=== PATIENT | female | born 1975 | race Caucasian/White ===

== ENCOUNTER → 2017-12-09 06:59 | Outpatient (CLI) | payer OTHER, SELFPAY ==
--- NOTE | 2017-12-09 07:06 | BI_ITS ---
MAMMOGRAPHY - BILATERAL SCREENING REASON FOR EXAM: Female, 42 years old. Routine annual screening examination. PERTINENT HISTORY: Non-contributory. TECHNIQUE: Digital bilateral breast suzie (3D mammographic acquisition) in the CC and MLO projections. 2-D mediolateral oblique (MLO) and craniocaudad (CC) views of both breasts were obtained. CAD: Full Field Digital Mammography with Computer Added Detection was performed. COMPARISON: Comparison is made with prior examination of November 18, 2016. FINDINGS: Breast Composition: The breasts are extremely dense, which lowers the sensitivity of mammography. There are no dominant masses or suspicious calcifications. There is a 5.7 mm x 4.2 mm well-defined nodular density in the medial retroareolar region of the left breast. Correlation with ultrasound is recommended. No other significant abnormalities are identified. There has been no significant change since the prior study. BI/SCREENING MAMM (CAD), BILAT IMPRESSION: Subcentimeter nodule in the left breast as described. Correlation with ultrasound is recommended. ASSESSMENT CATEGORY: BIRADS Category 0: Incomplete. Need additional imaging evaluation. A letter regarding these results will be sent to the patient by the facility within 30 days. Approximately 10% of breast cancers are not detected by mammography. A normal mammogram should not delay biopsy of a clinically suspicious abnormality. [id number] Electronically Signed: Loi Reyes MD at 8:52 EDT Tel [phone], Service support ,
== END ==
PROVIDERS: Family Provider Family Medicine; PCP Family Medicine; Visit Provider Obstetrics & Gynecology
DX: Z12.31 Encounter for screening mammogram for malignant neoplasm of breast (principal); N63.20 Unspecified lump in the left breast, unspecified quadrant
CPT/HCPCS: 77063; 77067

== ENCOUNTER → 2017-12-10 10:28 | Outpatient (CLI) | payer OTHER, SELFPAY ==
--- NOTE | 2017-12-10 10:45 | US_ITS ---
STUDY: ULTRASOUND BREAST - LEFT REASON FOR EXAM: Female, 42 years old. Abnormal screening mammogram. TECHNIQUE: Axial and longitudinal images of the LEFT breast were performed with a high resolution ultrasound transducer. COMPARISON: Comparison is made with prior mammogram dated December 09, 2017. FINDINGS: LEFT Breast: There is an 8 mm x 7 mm x 3 mm cyst in the medial retroareolar region of the breast. This corresponds to the mammographic findings. Smaller cysts are also seen within the breast. US/Breast Limited Unilateral IMPRESSION: The mammographic findings corresponds to an 8 mm x 7 mm x 3 mm cyst. Routine mammographic follow-up is recommended. ASSESSMENT CATEGORY: BIRADS Category 2: Benign. A letter regarding these results will be sent to the patient by the facility within 30 days. Electronically Signed: Loi Reyes MD at 12:44 EDT Tel [phone], Service support ,
== END ==
PROVIDERS: Family Provider Family Medicine; PCP Family Medicine; Visit Provider Obstetrics & Gynecology
DX: R92.8 Other abnormal and inconclusive findings on diagnostic imaging of breast (principal)
CPT/HCPCS: 76642

== ENCOUNTER → 2018-03-04 13:10 | Outpatient (CLI) | payer OTHER, SELFPAY ==
--- NOTE | 2018-03-04 13:12 | US_ITS ---
STUDY: ULTRASOUND OF THE FEMALE PELVIS - COMPLETE REASON FOR EXAM: Female, 42 years old. History of ovarian cyst. LMP: February 21, 2018. TECHNIQUE: Transabdominal and Transvaginal TECHNICAL QUALITY: Adequate. COMPARISON: Comparison is made with prior study dated February 14, 2014. FINDINGS: The uterus is anteverted and is in a midline position. The uterus measures 9.2 cm x 4.6 cm x 6.3 cm. Normal uterine cervix. The endometrium measures 6.8 mm in thickness, and is hyperechoic. There is no demonstrated endometrial mass. There is no demonstrated myometrial mass. I.U.D. - The patient does not have an I.U.D. The right ovary is visualized. The right ovary measures 3.2 cm x 1.7 cm x 1.5 cm. There is no right ovarian cyst or ovarian mass. There is no visualized right adnexal mass or complex lesion. There is normal arterial and normal venous vascularity. The left ovary is visualized. The left ovary measures 3.1 cm x 2.3 cm x 2.4 cm. There is a 2.2 cm x 1.8 cm x 1.9 cm cyst. There is no visualized left adnexal mass or complex lesion. There is normal arterial and normal venous vascularity. There is no fluid in the cul-de-sac. The pre void volume of the bladder was 610 ml. Polycystic ovary disease: No. US/Pelvic (Non ) IMPRESSION: 2.2 cm x 1.8 cm x 1.9 cm left ovarian cyst. Electronically Signed: Loi Reyes MD at 14:14 EDT Tel [phone], Service support ,
--- NOTE | 2018-03-04 13:25 | US_ITS ---
STUDY: ULTRASOUND OF THE FEMALE PELVIS - COMPLETE REASON FOR EXAM: Female, 42 years old. History of ovarian cyst. LMP: February 21, 2018. TECHNIQUE: Transabdominal and Transvaginal TECHNICAL QUALITY: Adequate. COMPARISON: Comparison is made with prior study dated February 14, 2014. FINDINGS: The uterus is anteverted and is in a midline position. The uterus measures 9.2 cm x 4.6 cm x 6.3 cm. Normal uterine cervix. The endometrium measures 6.8 mm in thickness, and is hyperechoic. There is no demonstrated endometrial mass. There is no demonstrated myometrial mass. I.U.D. - The patient does not have an I.U.D. The right ovary is visualized. The right ovary measures 3.2 cm x 1.7 cm x 1.5 cm. There is no right ovarian cyst or ovarian mass. There is no visualized right adnexal mass or complex lesion. There is normal arterial and normal venous vascularity. The left ovary is visualized. The left ovary measures 3.1 cm x 2.3 cm x 2.4 cm. There is a 2.2 cm x 1.8 cm x 1.9 cm cyst. There is no visualized left adnexal mass or complex lesion. There is normal arterial and normal venous vascularity. There is no fluid in the cul-de-sac. The pre void volume of the bladder was 610 ml. Polycystic ovary disease: No. US/Transvaginal Non- IMPRESSION: 2.2 cm x 1.8 cm x 1.9 cm left ovarian cyst. Electronically Signed: Loi Reyes MD at 14:14 EDT Tel [phone], Service support ,
== END ==
PROVIDERS: Family Provider Family Medicine; PCP Family Medicine; Visit Provider Family Medicine
DX: N83.202 Unspecified ovarian cyst, left side (principal)
CPT/HCPCS: 76830; 76856; 93976

== ENCOUNTER → 2018-03-08 07:11 | Outpatient (CLI) | payer OTHER, SELFPAY ==
[2018-03-08 10:42] LABS: AST(SGOT) 20 U/L (15-37); Alanine Aminotransfer ALT/SGPT 20 U/L (13-56); Albumin, Serum 3.4 g/dL (3.2-5.0); Alkaline Phosphatase 58 U/L (45-117); Anion Gap 8 (5-15); BUN 15 mg/dL (7-18); BUN/Creat Ratio 18.9 RATIO (10-20); Calcium,Total 8.3 mg/dL (8.5-10.1); Chloride 104 mmol/L (98-107); EST Glomerular Filtration Rate 84 mL/min (>60); Est Glom Filt Rate - Afr Amer 101 mL/min (>60); Globulin 3.5 g/dL (2.2-4.2); Glucose 71 mg/dL (74-106); Potassium 3.9 mmol/L (3.5-5.1); Protein, Total 6.9 g/dL (6.4-8.2); Sodium Level 140 mmol/L (136-145)
== END ==
PROVIDERS: Family Provider Family Medicine; PCP Family Medicine; Visit Provider Family Medicine
DX: R10.31 Right lower quadrant pain (principal)
CPT/HCPCS: 36415; 80053

== ENCOUNTER → 2018-09-07 15:39 | Outpatient (CLI) | payer OTHER, SELFPAY | PROVIDERS: Family Provider Family Medicine; PCP Family Medicine; Referring Provider Otolaryngology Otolaryngology/Facial Plastic Surgery; Visit Provider Otolaryngology Otolaryngology/Facial Plastic Surgery | DX: J02.9 Acute pharyngitis, unspecified (principal) | CPT/HCPCS: 87070; 87077; 87186 ==

== ENCOUNTER 2018-12-23 18:04 | Emergency (ER) | payer OTHER, SELFPAY ==
[2018-12-14 08:40] VITALS: BMI 20.4
[2018-12-23 18:04] VITALS: BP 147/80; PULSE 56; RESP 14; TEMP 37.1; O2SAT 99; BMI 21.5
--- NOTE | 2018-12-23 19:01 | ED.VIS.GEN ---
History of Present Illness Chief Complaint: Headache Informant: Patient Onset: Today - about 4-5 hrs Context: Gradual Onset - relatively quick, similar to other migraines Timing: Continuous Quality: throbbing Location: right frontal/retroorbital Current Severity: Severe - not the worst ever Maximum Severity: Severe Worsened by: light Relieved by: not by her Zomig Associated Symptoms: n/v, photophobia. no diplopia or peripheral neuro sx. Narrative: Had poison [place] recently and was on prednisone, which has caused her to have some irregular sleep, which is a common trigger for her migraines which started today. She took half of his Zomig, she later took the other half but soon vomited after that. Looking for relief. No recent head injury. Not confused or having any neck stiffness or fever. Prior similar symptoms: Yes - typical of her usual migraines - Past Medical History (1) Migraines Status: Chronic Past Medical History - Allergies and Home Meds Allergies/Adverse Reactions: Allergies No Known Allergies Allergy (Verified 12/23/18 18:08) Primary Care Physician: Tony Ely MD [Primary Care Provider] - As Needed Lives: Spouse/ Significant Other Smoking Status: Never smoker Drugs: None Review of Systems General: Denies: Chills, Fever Eyes: Denies: Visual changes - bilaterally, Diplopia Gastrointestinal: Reports: Nausea, Vomiting. Denies: Abdominal pain Musculoskeletal: Denies: Neck pain, Back pain Skin: Denies: Rash, Wounds Neurological: Reports: Headache. Denies: Weakness, Numbness Physical Exam Vital Signs/Narrative: Vital Signs Temp Pulse Resp BP Pulse Ox 12/23/18 18:04 98.7 F 56 L 14 147/80 H 99 Inital Vital Signs reviewed: Yes General: Well nourished, Well developed, No Acute Distress Head: Normocephalic, Atraumatic Eyes: Perrl, EOMI, - - photophobic ENT: Moist mucous membranes, No rhinorrhea Neck: Supple, Nontender, No lymphadenopathy Skin: Normal color, No rash Neurological: Alert, Oriented x3, Cranial nerves II-XII grossly intact, Normal Strength, Normal Sensation Psychological: Normal affect, Normal Mood Diagnostic/Tx/Re-eval - Medical Decision Making Patient was treated with Reglan, Toradol, Benadryl along with some IV fluids. On reevaluation her headache is completely gone she feels much better. Consistent with a migraine. Given appropriate discharge instructions. She has a ride home. ED Disposition - Plan for ED Patient: Disposition: Home or Assisted Living Diagnosis: Migraine headache Instructions: ED Headache Migraine Referrals: Tony Ely MD [Primary Care Provider] - As Needed
[2018-12-23] MEDS: Metoclopramide 10 MG/2 ML Vial IV (19:10)
[2018-12-23] MEDS: Ketorolac 30 MG/ML Syringe IV (19:10)
[2018-12-23] MEDS: DiphenhydrAMINE 50 MG/ML Syringe 25 MG IV (19:10)
[2018-12-23] MEDS: 0.9% Normal Saline 1,000 ML 999 ML IV (19:10)
== END 2018-12-23 20:45 | disposition home or self-care (01) ==
PROVIDERS: Emergency Provider Emergency Medicine; Family Provider Family Medicine; PCP Family Medicine
DX: G43.909 Migraine, unspecified, not intractable, without status migrainosus (principal)
CPT/HCPCS: 96361; 96374; 96375; 99283; J7030; A4216

== ENCOUNTER → 2019-06-06 14:30 | Outpatient (CLI) | payer OTHER, SELFPAY ==
--- NOTE | 2019-06-06 14:32 | BI_ITS ---
BILATERAL DIGITAL MAMMOGRAM WITH TOMOSYNTHESIS: Mediolateraloblique and craniocaudal views demonstrate no evidence of dominant parenchymal masses. No cluster of microcalcifications or architectural distortion is seen. No evidence of skin thickening is identified There has been no significant change since 12/09/2017. Breast Density: The breast tissue is heterogeneously dense, which may obscure small masses. CAD was used to assist in final assessment. IMPRESSION: NORMAL MAMMOGRAM BILATERALLY. FINAL ASSESSMENT: BIRAD 1 (NEGATIVE) YEARLY MAMMOGRAM RECOMMENDED Approximately 10% of breast cancers are not detected by mammography. A normal mammogram should not delay biopsy of a clinically suspicious abnormality. Electronically Signed: Stuart Mata, at 20:40 EDT Tel , Service support , BI/SCREEN MAMM (CAD) W/ADELINA CAVAZOS
== END ==
PROVIDERS: Family Provider Family Medicine; PCP Family Medicine; Referring Provider Obstetrics & Gynecology; Visit Provider Obstetrics & Gynecology
DX: Z12.31 Encounter for screening mammogram for malignant neoplasm of breast (principal)
CPT/HCPCS: 77063; 77067

== ENCOUNTER → 2019-07-18 09:20 | Outpatient (CLI) | payer OTHER, SELFPAY ==
[2019-07-17 15:54] VITALS: BMI 21.5
--- NOTE | 2019-07-18 09:23 | US_ITS ---
STUDY: ULTRASOUND BREAST - LEFT REASON FOR EXAM: Female, 44 years old. Left axillary adenopathy. TECHNIQUE: Axial and longitudinal images of the LEFT breast were performed with a high resolution ultrasound transducer. # OF IMAGES: 29 COMPARISON: Comparison is made with prior sonogram of the left breast dated December 10, 2017. FINDINGS: LEFT Breast: There is a 1.6 cm x 1.1 cm x 0.4 cm hypoechoic well-defined nodule with a central hilum and increased vascularity in keeping with a lymph node. Adjacent to this, there is a 0.9 cm x 0.6 cm x 0.6 cm similar appearing nodular density. This is in keeping with a lymph node as well. US/Breast Limited Unilateral IMPRESSION: Findings in keeping with 2 benign-appearing left axillary lymph nodes. ASSESSMENT CATEGORY: BIRADS Category 2: Benign. A letter regarding these results will be sent to the patient by the facility within 30 days. Electronically Signed: Loi Reyes, at 8:32 EST , Service support ,
== END ==
PROVIDERS: Family Provider Family Medicine; PCP Family Medicine; Referring Provider Surgery; Visit Provider Surgery
DX: R59.1 Generalized enlarged lymph nodes (principal)
CPT/HCPCS: 76642

== ENCOUNTER → 2020-06-06 15:28 | Outpatient (CLI) | payer OTHER, SELFPAY ==
[2019-07-17 15:54] VITALS: BMI 21.5
--- NOTE | 2020-06-06 15:33 | US_ITS ---
STUDY: ULTRASOUND OF THE FEMALE PELVIS - COMPLETE REASON FOR EXAM: Female, 45 years old. RLQ PAIN LMP: 05/30/2020 TECHNIQUE: Transabdominal TECHNICAL QUALITY: Adequate. COMPARISON: 03/04/2018 FINDINGS: The uterus is anteverted and is in a midline position. The uterus measures 9.1 x 5.9 x 3.7 cm. Normal uterine cervix. The endometrium measures 5 mm in thickness, and is hyperechoic. There is no demonstrated endometrial mass. 2 cm hyperechoic fibroid in the anterior aspect of the lower uterine segment. I.U.D. - The patient does not have an I.U.D. The right ovary is visualized. The right ovary measures 4.1 x 2.7 x 1.7 cm. There is no right ovarian cyst or ovarian mass. There is no visualized right adnexal mass or complex lesion. There is normal arterial and normal venous vascularity. The left ovary is visualized. The left ovary measures 2.7 x 2.3 x 1.4 cm. There is no left ovarian cyst or ovarian mass. There is no visualized left adnexal mass or complex lesion. There is normal arterial and normal venous vascularity. There is no fluid in the cul-de-sac. The pre void volume of the bladder was ml. The post void volume of the bladder was ml. Polycystic ovary disease: No. US/Pelvic (Non ) IMPRESSION: 2 cm intramural fibroid in the anterior lower uterine segment. Electronically Signed: Tyrone Jackman MD at 16:58 EDT Tel , Service support ,
== END ==
PROVIDERS: PCP Family Medicine; Referring Provider Family Medicine; Visit Provider Family Medicine
DX: R10.32 Left lower quadrant pain (principal)
CPT/HCPCS: 76856; 93976

== ENCOUNTER → 2020-06-24 11:21 | Outpatient (CLI) | payer OTHER, SELFPAY ==
[2019-07-17 15:54] VITALS: BMI 21.5
[2020-06-28 15:26] LABS: HPV APTIMA, High Risk Negative (Negative)
[2020-06-28 15:27] LABS: HPV Reflexed? YES, CHARGE PATIENT
== END ==
PROVIDERS: PCP Family Medicine; Visit Provider Student in an Organized Health Care Education/Training Program
DX: Z12.4 Encounter for screening for malignant neoplasm of cervix (principal)
CPT/HCPCS: 87624; 88175; G0145

== ENCOUNTER → 2020-07-09 10:26 | Outpatient (CLI) | payer OTHER, SELFPAY ==
[2019-07-17 15:54] VITALS: BMI 21.5
== END ==
PROVIDERS: PCP Family Medicine; Referring Provider Family Medicine; Visit Provider Family Medicine
DX: U07.1 COVID-19 (principal)
CPT/HCPCS: 87635; C9803; U0003

== ENCOUNTER → 2020-10-08 07:11 | Outpatient (CLI) | payer OTHER, SELFPAY ==
[2019-07-17 15:54] VITALS: BMI 21.5
[2020-08-29 11:57] VITALS: BMI 22.2
--- NOTE | 2020-10-08 07:13 | BI_ITS ---
MAMMOGRAPHY - BILATERAL SCREENING REASON FOR EXAM: Female, 45 years old. Routine annual screening examination. PERTINENT HISTORY: Non-contributory. TECHNIQUE: Digital bilateral breast adelina (3D mammographic acquisition) in the CC and MLO projections. 2-D mediolateral oblique (MLO) and craniocaudad (CC) views of both breasts were obtained. CAD: Full Field Digital Mammography with Computer Added Detection was performed. COMPARISON: Comparison is made with prior study dated 06/06/2019 and 12/09/2017. FINDINGS: Breast Composition: The breasts are extremely dense, which lowers the sensitivity of mammography. There are no dominant masses or suspicious calcifications. No other significant abnormalities are identified. There has been no significant change since the prior study. BI/SCRN MAMM (CAD)W/ADELINA BILAT IMPRESSION: Stable bilateral screening mammogram. Yearly follow-up mammogram recommended. (A) ASSESSMENT CATEGORY: BIRADS Category 1: Negative. A letter regarding these results will be sent to the patient by the facility within 30 days. Approximately 10% of breast cancers are not detected by mammography. A normal mammogram should not delay biopsy of a clinically suspicious abnormality. [id number] Electronically Signed: Loi Reyes MD at 8:45 EST , Service support ,
== END ==
PROVIDERS: PCP Family Medicine; Referring Provider Student in an Organized Health Care Education/Training Program; Visit Provider Student in an Organized Health Care Education/Training Program
DX: Z12.31 Encounter for screening mammogram for malignant neoplasm of breast (principal)
CPT/HCPCS: 77063; 77067

== ENCOUNTER → 2020-11-11 14:40 | Outpatient (CLI) | payer OTHER, SELFPAY ==
[2020-08-29 11:57] VITALS: BMI 22.2
--- NOTE | 2020-11-11 14:46 | RAD_ITS ---
STUDY: X-RAY - LUMBOSACRAL SPINE REASON FOR EXAM: Female, 45 years old. GROIN PAIN TECHNIQUE: 7 view(s) of the lumbosacral spine were obtained. COMPARISON: None FINDINGS: Normal lumbar lordosis. There is a mild dextroscoliosis. There is normal alignment of the vertebrae. There is diminished flexion. Normal extension. Normal vertebral bodies with mild spurring at the endplates. Normal disc space heights. Normal bilateral sacral ala, sacroiliac joints, and visualized sacrum. Normal visualized soft tissue structures. RAD/L/S Spine Bending Flex/Ext IMPRESSION: Mild degenerative changes with decreased flexion of the lumbosacral spine. Mild dextroscoliosis. Electronically Signed: Benjamin Bronson DO at 16:08 EDT Tel [phone], Service support ,
== END ==
PROVIDERS: PCP Family Medicine; Referring Provider Family Medicine; Visit Provider Family Medicine
DX: M54.32 Sciatica, left side (principal); M54.16 Radiculopathy, lumbar region
CPT/HCPCS: 72120

== ENCOUNTER → 2020-11-29 08:02 | Outpatient (CLI) | payer OTHER, SELFPAY ==
[2020-08-29 11:57] VITALS: BMI 22.2
--- NOTE | 2020-11-29 08:09 | MRI_ITS ---
STUDY: MRI LUMBAR SPINE WITHOUT CONTRAST REASON FOR EXAM: Female, 45 years old. L RADICULOPATHY INTO HIP ANS LEG TECHNIQUE: Standardized fat and water weighted pulse sequences were obtained in the sagittal and axial planes. COMPARISON: X-ray dated 11/11/2020 FINDINGS: Normal lumbar lordosis. There is no substantial scoliosis. Normal conus medullaris that terminates at the L1. L1-2: There is minimal disc space narrowing and endplate spondylosis. There is no significant disc herniation, central canal or foraminal stenosis. L2-3: There is moderate disc space narrowing and endplates spondylosis. Mild disc bulge and facet arthropathy without significant central canal stenosis. Mild right and mild left foraminal stenosis. L3-4: There is mild disc space narrowing and endplates spondylosis. Mild disc bulge and moderate facet arthropathy with mild central canal stenosis. Moderate right and mild left foraminal stenosis. L4-5: There is mild disc space narrowing and endplates spondylosis. Mild disc bulge and moderate facet arthropathy with mild central canal stenosis. Mild right and mild left foraminal stenosis. L5-S1: There is moderate disc space narrowing and endplates spondylosis. Mild disc bulge and mild facet arthropathy without significant central canal or foraminal stenosis Normal visualized sacral ala. MRI/Spine Lumbar (Routine) IMPRESSION: Moderate multilevel degenerative changes. L3/L4: Moderate right foraminal stenosis. Electronically Signed: Priya Valadez MD at 8:26 EDT Tel , Service support ,
== END ==
PROVIDERS: PCP Family Medicine; Referring Provider Family Medicine; Visit Provider Family Medicine
DX: M54.32 Sciatica, left side (principal); M54.16 Radiculopathy, lumbar region
CPT/HCPCS: 72148

== ENCOUNTER → 2021-03-11 14:34 | Outpatient (CLI) | payer OTHER, SELFPAY ==
[2020-08-29 11:57] VITALS: BMI 22.2
[2021-03-11 17:44] LABS: Absolute Lymphocyte Count 1.78 X10^3/uL (0.83-4.51); Absolute Neutrophil Count 5.1 X10^3/uL (2.0-7.7); Basophil# 0.04 X10^3/uL; Basophil% 0.5 % (0-1); Eosinophil# 0.02 X10^3/uL; Eosinophils% 0.3 % (0-5); Hematocrit 40.4 % (37-47); Hemoglobin 13.4 g/dL (12.0-15.0); Lymphocyte # 1.78 X10^3/ul (0.83-4.51); Lymphocyte % 23.9 % (19-41); Mean Corp Hgb Conc 33.2 g/dL (32-36); Mean Corpuscular Volume 96.4 fL (81-99); Mean Platelet Vol. 10.7 fl (6.2-12.0); Monocyte# 0.51 X10^3/uL; Monocyte% 6.8 % (0-10); NRBC Flagged by Analyzer 0 % (0-5); Neutrophil # 5.08 X10^3/uL (2.7-7.7); Neutrophil % 68.2 % (47-70); Platelet Count 376 K/mm3 (150-450); RBC Distribution Width CV 12.1 % (11.6-14.6); RBC Distribution Width SD 42.6 fl (35.1-43.9); Red Blood Count 4.19 M/mm3 (4.2-5.4); White Blood Count 7.5 K/mm3 (4.4-11.0)
[2021-03-11 18:03] LABS: Progesterone Level 0.34 ng/mL (See Comment)
[2021-03-11 18:12] LABS: Estradiol 34.8 pg/mL; Follicle Stimulating Hormone 21.3 mIU/mL; T4 Free Direct 1.24 ng/dL (0.76-1.46); Thyroid Stim Hormone (TSH) 0.89 uIU/mL (0.358-3.74)
== END ==
PROVIDERS: PCP Family Medicine; Referring Provider Family Medicine; Visit Provider Family Medicine
DX: F32.81 Premenstrual dysphoric disorder (principal); F41.9 Anxiety disorder, unspecified
CPT/HCPCS: 36415; 82670; 83001; 84144; 84439; 84443; 85025

== ENCOUNTER → 2021-06-17 | Outpatient (CLI) | payer OTHER, SELFPAY | END | disposition home or self-care (01) | LOC: LABSPEC 10:29 | PROVIDERS: PCP Family Medicine; Referring Provider Physician Assistant Surgical; Visit Provider Physician Assistant Surgical | DX: Z20.822 Contact with and (suspected) exposure to COVID-19 (principal) | CPT/HCPCS: 87635; U0005; U0003 ==

== ENCOUNTER 2021-09-17 12:26 | Outpatient (RCR) | payer OTHER, SELFPAY ==
--- NOTE | 2021-09-17 13:45 | HP.PTEVAL_ITS ---
Patient's Visit Information ALTHEA VALLE is a 46 year old F referred to Physical Therapy by Dr. Shirley Guan DO with a diagnosis of DDD and bulging discs in L/S. Date of Evaluation: 09/17/21 Physical Therapist: Mckinley Busby, PT, ATC - Visit Plan Frequency: 2x /Week Duration: 1 Week Plan: Issue and educate pt on HEP of L/S stab ex's and REIL - Subjective Pt reports she has had LBP for approximately one year. Pt notes she was placed o n prednisone for a while which helped, but her pain is still bad. Pt notes she had an MRI a couple months ago which revealed DDD at multiple levels as well as bulging discs at L3-4. Pt reports she had been in crossfit, but had to stop secondary to her LBP. Pt notes she also has L LE radiculopathy down the anterior region of her L thigh which stops prior to her knee. Pt also notes her L foot goes to sleep a lot. Pt reports prolonged sitting and walking will both increase her sx's. 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 Pt notes that cvonstantly changing positions is the only thing that really helps to decrease her pain. Pt reports sleep difficulty at night secondary to pain. 0/10 pain at rest, 8/10 at worst - Pain LBP Pain Intensity (Out of 10): 0 Pain Intensity Range: 8 - Objective Neuro: B LE sensation is wnl to light touch. B patellar reflex= 3/3. MMT: L LE is grossly 4/5 throughout. R LE is 5/5 throughout. Gait: No sig deviations at this time. Palpation: B ASIS are equal. 1/8 leg length discrepancy noted at this time. ROM: Moderate limitations with ext. all other ROM WNL. Repeated movements: RFIS peripheralized sx's in L LE. Prone prop on elbows 1 min x 2 decreased pain. REIL 10x2 centralised sx's in L LE - Balance/Special Test Scores Oswestry Low Back Score: 18 - Goals Goal 1:: I with HEP 2-3 visits Goal Time Frame: 2-4 Weeks - Rehabilitation Potential Physical Therapy Diagnosis: Pt has LBP, L LE radiculopathy, and limited L/S ROM secondary to L/S disc derrangement Rehabilitation Potential: Good - Anticipated Interventions Thank you for the opportunity to evaluate your patient. For Medicare and Medicare HMO plans, please review the plan of care and approve it. It will need to be FAXED BACK to us at [phone] for Medicare purposes. For Medicare only, by signing this I certify the plan of care. Please let me know if there are questions or concerns regarding this plan of care. Physician Signature: Date:
--- NOTE | 2022-02-12 15:48 | HP.PTDCNRP_ITS ---
ALTHEA VALLE was seen in my office for initial evaluation on 09/17/21. The following Plan of Care was established for this patient: Initial Frequency: 2x /Week Initial Duration: 1 Week This patient was last seen in our office . Pertinent comments regarding their Physical therapy will appear below: Pt was evaluated for LBP on the date of 09/17/21. Pt has not returned through todays date and is discontinued at this time At this point I will be discontinuing this patient from physical therapy. I wo uld be happy to see this patient again in the future if found appropriate by the physician. Thank you! Mckinley Busby, PT, ATC Balance/Gait/Functional tests - Balance/Special Test Scores Oswestry Low Back Score: 18
== END 2021-09-17 19:00 | disposition home or self-care (01) ==
LOC: PT 12:26
PROVIDERS: PCP Family Medicine; Visit Provider Family Medicine
DX: M54.16 Radiculopathy, lumbar region (principal)
CPT/HCPCS: 97110; 97161

== ENCOUNTER 2021-10-10 06:57 | Outpatient (CLI) | payer OTHER, SELFPAY ==
--- NOTE | 2021-10-10 07:21 | BI_ITS ---
MAMMOGRAPHY - BILATERAL SCREENING REASON FOR EXAM: Female, 46 years old. Routine annual screening examination. PERTINENT HISTORY: Non-contributory. TECHNIQUE: Digital bilateral breast adelina (3D mammographic acquisition) in the CC and MLO projections. 2-D mediolateral oblique (MLO) and craniocaudad (CC) views of both breasts were obtained. CAD: Full Field Digital Mammography with Computer Added Detection was performed. COMPARISON: Comparison is made with prior examination dated 10/08/2020 and 06/06/2019. FINDINGS: Breast Composition: The breasts are extremely dense, which lowers the sensitivity of mammography. There are no dominant masses or suspicious calcifications. No other significant abnormalities are identified. There has been no significant change since the prior study. BI/SCRN MAMM (CAD)W/ADELINA BILAT IMPRESSION: Stable bilateral screening mammogram. Yearly follow-up mammogram recommended. (A) ASSESSMENT CATEGORY: BIRADS Category 1: Negative. A letter regarding these results will be sent to the patient by the facility within 30 days. Approximately 10% of breast cancers are not detected by mammography. A normal mammogram should not delay biopsy of a clinically suspicious abnormality. [id number] Electronically Signed: Loi Reyes MD at 9:20 EST ,
== END 2021-10-10 23:59 | disposition home or self-care (01) ==
LOC: OPBI 07:20
PROVIDERS: PCP Family Medicine; Referring Provider Student in an Organized Health Care Education/Training Program; Visit Provider Student in an Organized Health Care Education/Training Program
DX: Z12.31 Encounter for screening mammogram for malignant neoplasm of breast (principal)
CPT/HCPCS: 77063; 77067

== ENCOUNTER → 2022-01-06 | Outpatient (CLI) | payer OTHER, SELFPAY ==
[2022-01-06 11:15] LABS: Cholesterol 204 mg/dL (200); Glucose 79 mg/dL (74-106); High Density Lipoprotein 84 mg/dL; Triglycerides 60 mg/dL; Very Low Density Lipoprotein 12 mg/dL (5-40)
== END | disposition home or self-care (01) ==
LOC: MTLAB 07:13
PROVIDERS: PCP Family Medicine; Referring Provider Family Medicine; Visit Provider Family Medicine
DX: Z00.00 Encounter for general adult medical examination without abnormal findings (principal)
CPT/HCPCS: 36415; 80061; 82947

== ENCOUNTER → 2022-03-26 | Outpatient (CLI) | payer OTHER, SELFPAY | END | disposition home or self-care (01) | PROVIDERS: PCP Family Medicine; Visit Provider Family Medicine | DX: Z20.822 Contact with and (suspected) exposure to COVID-19 (principal); J02.9 Acute pharyngitis, unspecified | CPT/HCPCS: 87070; 87635; U0003; U0005 ==

== ENCOUNTER → 2022-09-21 | Outpatient (CLI) | payer OTHER, SELFPAY ==
--- NOTE | 2022-09-21 | EMB_PTH ---
PATIENT: ALTHEA VALLE LOC: [facility] U#:[id number] AGE/SX: 47/F ROOM: RE09/21/[address]: Dr. Nanette Jhaveri DO : 1975 BED: DIS: 09/21/2022 SPEC #: [id number] RECD: 09/21/22 15:32 STATUS: RONDA REQ #: [id number] NORBERTO: 09/21/22 00:[address]: Nanette Jhaveri DEPT: SURGICAL PATHOLOGY RECD BY: Spencer Henry ENTERED: 09/22/22 11:12 SP TYPE: ENDOM BX/C ANGEL DR: Dr. Shirley Guan DO Tissues: Endometrium, NOS Procedures: Surgery Specimen Level IV HEADER OPERATION: Endometrial biopsy PRE-OP DIAGNOSIS: Abnormal uterine bleeding TISSUE SUBMITTED: Endometrial biopsy MICROSCOPIC DIAGNOSIS Endometrial biopsy: Disordered proliferative endometrium with glandular and stromal breakdown. DARIUS:belinda 09/23/2022 MICROSCOPIC DESCRIPTION Slides are reviewed. GROSS DESCRIPTION Received is one container labeled with the patient's name and not further designated. The specimen consists of multiple fragments of hemorrhagic soft tissue that in aggregate measure 3 x 2.5 x 0.3 cm. The specimen is totally submitted in one cassette. / SJ:belinda 09/22/2022 TC:5 CPT: 40277
== END | disposition home or self-care (01) ==
LOC: LABSPEC 15:11
PROVIDERS: PCP Family Medicine; Visit Provider Student in an Organized Health Care Education/Training Program
DX: N93.9 Abnormal uterine and vaginal bleeding, unspecified (principal)
CPT/HCPCS: 88305

== ENCOUNTER 2022-10-15 05:55 | Day surgery (SDC) | payer OTHER, SELFPAY ==
[2022-10-12 17:03] LABS: Hematocrit 36.9 % (37-47); Hemoglobin 11.9 g/dL (12.0-15.0); Mean Corp Hgb Conc 32.2 g/dL (32-36); Mean Corpuscular Hgb 31.2 pg (27.0-32.0); Mean Corpuscular Volume 96.6 fL (81-99); Mean Platelet Vol. 10.9 fl (6.2-12.0); Platelet Count 313 K/mm3 (150-450); RBC Distribution Width SD 42.9 fl (35.1-43.9); Red Blood Count 3.82 M/mm3 (4.2-5.4); White Blood Count 6.1 K/mm3 (4.4-11.0)
[2022-10-15] VITALS (9 sets, daily range): BP systolic 87–135; BP diastolic 59–76; PULSE 45–58; RESP 16; TEMP 36.1–36.7; O2SAT 98–100; BMI 20.9
[2022-10-15] MEDS: Lactated Ringers 1,000 ML 15 ML IV (06:45)
[2022-10-15 07:04] LABS: Internal QC Validated? YES +Cl - CLEAR BKGD
[2022-10-15 07:05] LABS: Pregnancy, Urine Negative Negative
--- NOTE | 2022-10-15 07:06 | PCM.HP.BLA ---
History and Physical Date of Admission: 10/15/22 HPI: 47-year-old female with abnormal uterine bleeding plan for hysteroscopy, dilation curettage, endometrial ablation. Denies headache or vision changes, chest pain or shortness of breath, nausea or vomiting, diarrhea constipation, fevers or chills. 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 Depression 2. Migraines Surgical history: 1. Excision of melanoma left cheek 2. Nephrolithiasis removal Medications: 1. Fluoxetine 2. Zomig Family history: Noncontributory Social history: Denies tobacco, alcohol, drug use Review of system: Negative otherwise stated above Physical exam: Blood pressure 135/76, heart rate 56, respiratory rate 16, temp 97.4 ?F, oxygen saturation 100% on room air General: No acute distress HEENT: Normocephalic/atraumatic, PERRLA Cardiac: Regular rate and rhythm Respiratory: Clear to auscultation bilaterally Abdomen: Soft, nontender Extremities: No edema Neurologic: Cranial nerves II through XII grossly intact Musculoskeletal: Strength out of 5 throughout extremities Assessment/plan: 47-year-old female with abnormal uterine bleeding plan for hysteroscopy, dilation curettage, endometrial ablation. Risks, benefits, alternatives discussed with the patient. Risk include but are not limited to: Risk of bleeding to the point of transfusion, infection, injury to surrounding tissue including bowel/bladder/uterine perforation, VTE, ICU admission. Patient aware and consented.
--- NOTE | 2022-10-15 07:10 | OP.PCM_ITS ---
Report of Operation Date of Procedure: 10/15/22 Pre-Operative Diagnosis: Abnormal uterine bleeding Post-Operative Diagnosis: Abnormal uterine bleeding Surgery/Procedure Performed:: Hysteroscopy, dilation curettage Description of Surgical Findings:: Normal-appearing external genitalia. Minimal uterine descensus. Normal- appearing cervix. Endometrial cavity measuring 8 cm. Cervical length 4 cm. Normal-appearing endometrial cavity, no fibroids or polyps. Type of Anesthesia: MAC Estimated Blood Loss (mL): 5 cc Fluids Replaced: 700cc Description of Procedure: Indication/risk/benefits: This is a 47-year-old female with abnormal uterine bleeding plan for hysteroscopy, dilation curettage, endometrial elation. All r isk, benefits, alternatives discussed with patient. Risk clued but are not limited to risk of bleeding to the point of transfusion, infection, injury to surrounding tissue including bowel/bladder/uterine perforation, VTE, ICU admission. Patient aware and consented. Procedure: Patient taken to the operating room and MAC anesthesia induced. Patient placed in the dorsal lithotomy position and prepped and draped in the usual sterile fashion. Weighted speculum placed in the posterior vagina and [place] retractor used anteriorly to visualize cervix. Anterior lip of the cervix grasped with single-tooth tenaculum. Cervix sequentially dilated. Hysteroscope placed through the cervical canal with inspection of the endometrial cavity with findings as above. Uterine cavity length 8 cm, cervical length 4 cm. Charlene opened. Attempted to deploy with 4 cm cavity length, unable to open array fully. Attempted to deploy a with also 4.5 cm and 5 cm cavity length. Unable to fully open array. Unable to complete ablation due to short cavity. Charlene removed. Single-tooth tenaculum removed. Cervix hemostatic. Weighted speculum and [place] retractor removed from vagina. At the end of the procedure all needle, lap, sponge counts were correct. UOP: 50cc Complications None
--- NOTE | 2022-10-15 07:11 | DCINST_ITS ---
Discharge Instructions Diet Discharge Diet: No restrictions Activity Discharge Activity: Return to Normal Activity and May Shower May resume sexual activity in: 2 weeks Weight Bearing Status: Weight bearing as tolerated Lifting Restrictions: None Dressing / Incision Call your doctor if you observe: Fever of 101 or Higher, Change in Color, Inability to urinate, Using more than 1 pad per hour, Shortness of breath, Dizziness, Swelling in the ankles, Chest pain and Calf discomfort Follow Up Care Please Follow Up With: Nanette Jhaveri DO When: 1-2 week postoperative visit Test Results: Test results from this visit will be discussed in further detail at your follow- up appointment, if applicable. Discharge Plan Admission Primary Reason for Your Visit: Dilation and curettage Attending Provider: Nanette Jhaveri Primary Care Provider: Shirley Guan Discharge Orders/Prescriptions Prescriptions: No Action zolmitriptan 5 MG tablet 5 mg PO PRN PRN (Reason: MIGRAINES) Label Comments: take 1 tablet by mouth if needed fluoxetine 20 MG tablet 20 mg PO DAILY fluticasone propionate 1 SPRAY spray,suspension 1 spray NASAL PRN PRN (Reason: ALLERGIES) Referrals / Follow Up: Shirley Guan DO [Primary Care Provider] - Disposition Disposition (needs filled in before D/C Order can be placed): Home, Self Care
--- NOTE | 2022-10-15 07:30 | EMB_PTH ---
PATIENT: ALTHEA VALLE LOC: [facility] [place] U#:[id number] AGE/SX: 47/F ROOM: RE10/15/[address]: Dr. Nanette Jhaveri DO : 1975 BED: DIS: 10/15/2022 SPEC #: [id number] RECD: 10/15/22 12:00 STATUS: RONDA REChelsey #: [id number] NORBERTO: 10/15/22 07:[address]: Nanette Jhaveri DEPT: SURGICAL PATHOLOGY RECD BY: Myah Lares ENTERED: 10/15/22 12:37 SP TYPE: ENDOM BX/C ANGEL DR: Dr. Shirley Guan DO Tissues: Endometrium, NOS Procedures: Surgery Specimen Level IV HEADER OPERATION: Hysteroscopy, D & C PRE-OP DIAGNOSIS: Abnormal uterine bleeding TISSUE SUBMITTED: Endometrial curettings MICROSCOPIC DIAGNOSIS Endometrial curettings: Proliferative endometrium. See comment. DARIUS:belinda 10/16/2022 COMMENT Please make reference to previous specimen ([id number]), endometrial biopsy with diagnosis of ?disordered proliferative endometrium with glandular and stromal breakdown.? MICROSCOPIC DESCRIPTION Slides are reviewed. GROSS DESCRIPTION Received in fixative is one container labeled with the patient's name and designated endometrial curettings. The specimen consists of multiple fragments of hemorrhagic soft tissue that in aggregate measure 1.5 x 1.0 x 0.1 cm. The specimen is totally submitted in one cassette. / SJ:rg 10/15/2022 TC:4 CPT: 21546
[2022-10-15] MEDS: HYDROcodone Bitartrate/Apap 5/325 Tablet PO (09:27)
== END 2022-10-15 10:00 | disposition home or self-care (01) ==
LOC: SDC 05:57 → AC 05:58
PROVIDERS: Anesthesiology; PCP Family Medicine; Visit Provider Student in an Organized Health Care Education/Training Program
PROC: 0U5B8ZZ Destruction of Endometrium, Via Natural or Artificial Opening Endoscopic (ICD-10-PCS; CPT 58558; principal; 2022-10-15 07:15)
DX: N93.9 Abnormal uterine and vaginal bleeding, unspecified (principal); G43.909 Migraine, unspecified, not intractable, without status migrainosus; F41.9 Anxiety disorder, unspecified; Z79.899 Other long term (current) drug therapy
CPT/HCPCS: 58558; 00952; 36415; 81025; 85027; 86850; 86900; 86901; 88305; J7120; J2405

== ENCOUNTER → 2023-02-04 | Outpatient (CLI) | payer OTHER, SELFPAY ==
[2023-02-04 13:25] LABS: Cholesterol 210 mg/dL (200); High Density Lipoprotein 92 mg/dL; Triglycerides 47 mg/dL; Very Low Density Lipoprotein 9 mg/dL (5-40)
== END | disposition home or self-care (01) ==
LOC: BFHLAB 09:33
PROVIDERS: PCP Family Medicine; Referring Provider Family Medicine; Visit Provider Family Medicine
DX: Z00.00 Encounter for general adult medical examination without abnormal findings (principal)
CPT/HCPCS: 36415; 80061

== ENCOUNTER → 2023-09-07 | Outpatient (CLI) | payer OTHER, SELFPAY ==
--- OUTSIDE RECORDS SUMMARY | 2023-09-07 17:25 | XMS RPT_ITS | CCD ---
Author Name Unknown Address [address] [place] [address] Organization [facility] Care Team Providers Care Brass Pickler Name Role Phone Unavailable Primary Care Provider CONCHITA Watkins Attending Unavailable Malys DOShirley Primary Care Provider ATWAY, SAID A Referring Unavailable ATWAY, SAID A Attending Unavailable MALYS, SHIRLEY Primary Care Unavailable ATWAY, SAID A Referring Unavailable ATWAY, SAID A Attending Unavailable MALYS, SHIRLEY Primary Care Unavailable ATWAY, SAID A Attending Unavailable MALYS, SHIRLEY Primary Care Unavailable SELF, SELF Referring Unavailable ATWAY, SAID A Attending Unavailable ATWAY, SAID A Admitting Unavailable MALYS, SHIRLEY Primary Care Unavailable Malys DOShirley Primary Care Provider Medications Current Medications Medication Drug Class(es) Dates Sig (Normalized) Sig (Original) citalopram 20 mg oral tablet (6 sources) Serotonin Reuptake Inhibitor Start: 11-13-2020 take 1 tablet by mouth once daily citalopram 20 MG tablet Take 20 mg by mouth daily. 0 11/13/2020 Active FLUoxetine 20 mg oral capsule (6 sources) Serotonin Reuptake Inhibitor take 1 capsule by mouth once daily FLUoxetine 20 MG capsule Take 1 capsule by mouth daily. 0 Active nortriptyline 10 mg oral capsule (6 sources) Tricyclic Antidepressant Start: 11-20-2020 take 1-3 capsules by mouth at bedtime nortriptyline 10 MG capsule take 1 to 3 capsules by mouth at bedtime 0 11/20/2020 Active ZOLMitriptan 5 mg oral tablet (6 sources) Serotonin-1b and Serotonin-1d Receptor Agonist Start: 11-22-2020 take 1 tablet by mouth every two hours, then take 2 tablets by mouth once daily zolmitriptan 5 MG tablet TAKE 1 TABLET BY MOUTH AT ONSET OF HEADACHE, MAY REPEAT AFTER 2 HOURS, MAX 2 TABLETS DAILY 0 11/22/2020 Active Problems Problem Classification Problem Date Documented Da te Episodic/Chronic Acquired foot deformities (3 sources) Bunion; Translations: [Bunion of unspecified foot] Onset: 05-28-2023 Episodic Other connective tissue disease (3 sources) Pain in both feet; Translations: [Pain in right foot] Episodic Other connective tissue disease (2 sources) Pain in right foot; Translations: [Pain in right foot] Onset: 05-28-2023 Episodic Other connective tissue disease (2 sources) Pain in left foot; Translations: [Pain in left foot] Onset: 05-28-2023 Episodic Other upper respiratory disease (1 source) Chronic pharyngitis; Translations: [Chronic pharyngitis] Chronic Results Test Name Value Interpretation Reference Range Facil ity Encounters Encounter Date Encounter Type Care Provider Facility Start: 05-28-2023 ambulatory INGA TRIPATHI Facility:[facility] Start: 05-25-2023 Telephone encounter Kiley Acu[facility] [place] Procedures Date Procedure Procedure Detail Performing Clinician Start: 11-18-2022 End: 11-18-2022 Radex foot complete minimum 3 views Inga Tripathi DPM Work Phone: Plan of Treatment Date Care Activity Detail Author Start: 06-02-2023 End: 06-02-2023 Patient encounter procedure [facility] Start: 05-28-2023 End: 05-28-2023 Admission to same day surgery center 05/28/2023 12:30 PM EDT - 05/28/2023 2:15 PM EDT Surgery [facility] [place] [address] [place] [address] [address] [place] [address] Inga Tripathi DPM [address] [facility] [address] [place] [address] ARTHRODESIS MIDTARSAL OR T[facility]ATARSAL JO[facility] Payers Date Payer Category Payer Private Health Insurance AELIZ Henderson ETNA [id number] 2020-Present [address] [place] [address] [id number] 2020 Private Health Insurance [id number] 1975 Unknown [id number] 1975 Unknown [id number] 1975 Unknown [id number] 1975 Unknown [id number] Social History Date Type Detail Facility Tobacco smoking status NHIS Tobacco smoking consumption unknown [facility] Start: 1975 [facility] Start: 11-18-2022 Tobacco smoking status NHIS Never smoked tobacco [facility] Start: 11-18-2022 Tobacco use and exposure Smokeless tobacco non-user [facility] Start: 11-18-2022 History of Social function [facility] Start: 11-18-2022 Tobacco use panel [facility] Clinical Notes 11-18-2022 to 05-26-2023 Telephone Encounter - Kiley Acuña - 05/26/2023 11:48 AM EDTTelephone Encounter - Kiley Acuña - 05/26/2023 11:48 AM EDTTelephone Encounter - Kiley Acuña - 05/25/2023 2:42 PM EDT Note Date & Type Note Facility 05-26-2023 Telephone encount er Note I missed transfer call from central scheduling to speak to patient . Pt states that she called a few months back to cancel ( but I was unaware) I told her to give us a call back when she is ready to schedule. I left [phone] for callback. [facility] 05-26-2023 Miscellaneous Notes Formattin g of this note might be different from the original. I missed transfer call from central scheduling to speak to patient . Pt states that she called a few months back to cancel ( but I was unaware) I told her to give us a call back when she is ready to schedule. I left [phone] for callback. Noticed [facility] for surgery on 05/28/23 keeps getting cancelled so I left message with patient to let her know that I am cancelling surgery on 05/28/23 and post op appointment on 06/02/23 since the [facility] keeps getting cancelled. I left [phone] for callback to reschedule. I lvmom to reschedule [facility] appointment on 05/26/23 at 10:00am. I left [phone] for callback if this does not work. documented in this encounter [facility] 05-25-2023 Telephone encount er Note Noticed [facility] for surgery on 05/28/23 keeps getting cancelled so I left message with patient to let her know that I am cancelling surgery on 05/28/23 and post op appointment on 06/02/23 since the [facility] keeps getting cancelled. I left [phone] for callback to reschedule. [facility] 05-25-2023 Miscellaneous Notes Formattin g of this note might be different from the original. Noticed [facility] for surgery on 05/28/23 keeps getting cancelled so I left message with patient to let her know that I am cancelling surgery on 05/28/23 and post op appointment on 06/02/23 since the [facility] keeps getting cancelled. I left [phone] for callback to reschedule. I lvmom to reschedule [facility] appointment on 05/26/23 at 10:00am. I left [phone] for callback if this does not work. documented in this encounter [facility] 05-25-2023 Telephone encount er Note I lvmom to reschedule [facility] appointment on 05/26/23 at 10:00am. I left [phone] for callback if this does not work. [facility] 03-10-2023 Telephone encount er Note I lvmom to schedule pre op appointment with Dr. Tripathi. I left [phone] for callback. [facility] 03-10-2023 Miscellaneous Notes Formattin g of this note might be different from the original. I lvmom to schedule pre op appointment with Dr. Tripathi. I left [phone] for callback. I lvmom to schedule appointment with Dr. Tripathi Before surgery to sign consent. I left [phone] for callback. documented in this encounter [facility] 03-04-2023 Telephone encount er Note I lvmom to schedule appointment with Dr. Tripathi Before surgery to sign consent. I left [phone] for callback. [facility] 11-18-2022 History of Presen t illness Narrative Chief Complaint Patient presents with Left Foot - Follow-up Pt presents to FU b/l jhonathan, pt would like to discuss sx for L foot. Pt having a difficult time wearing shoes. Right Foot - Follow-up Angelica Grullon is a 47 y.o. female presenting for follow up of bilateral foot bunion pain. Here to discuss surgical intervention given the lack of improvement with conservative care. Physical Exam General:Angelica Grullon is seated comfortably in the examination room. She is alert and oriented to time and place. In no acute distress. Mood and affect are normal and appropriate to situation.Angelica presents well developed, well nourished female. Angelica presents ambulating with a normal gait and shoe gear. Smoking Status Never Skin: Normal. No abrasions, lacerations, ecchymosis noted. Painful erythematous great toes. Musculoskeletal:all joints tested WNL and muscle strength 5/5 for all groups tested. Painful limited motion great toe with palpation and range. Neurological:protective sensation grossly intact Vascular: temperature warm to warm proximal to distal and DP and PT pulses +2 bilateral Imaging Studies: Hallux valgus with limited motion and pain. Mild pain at the distal sesamoid. Angelica was seen today for follow-up and follow-up. Diagnoses and all orders for this visit: Bilateral foot pain - XR FOOT RIGHT 3 VIEWS; Future - XR FOOT LEFT 3 VIEWS; Future - CASE REQUEST - SURGERY Bunion of great toe - CASE REQUEST - SURGERY Plan: On today's visit I have reviewed with the patient the diagnoses and treatment options for her lower extremity pathology. I have explained to her conservative treatment options. All of her questions were answered regarding this diagnosis. We discussed the procedure in detail. This included a discussion on the indications, possible complications, and expected postoperative course. This included a discussing on the weightbearing status after this procedure. All of her questions were answered and a proper written consent was signed and placed in the chart. No guarantees were given to outcome of this procedure. The patient will follow up in the office 1 week after surgery and were encouraged to call the office if they had any questions before the surgery takes place. documented in this encounter [facility] Diagnosis Bilateral foot pain Pain in limb [facility] Diagnosis Bilateral foot pain- Primary Pain in limb Bunion of great toe Bunion Bilateral foot pain Pain in limb Bilateral foot pain Pain in limb Bilateral foot pain Pain in limb Bunion of great toe Bunion documented in this encounter [facility] Reason for Referral Specialty Diagnoses / Procedures Referred By Contac t Referred To Contact Otolaryngology Diagnoses Chronic pharyngitis Jo-Ann Fraga MD [address] [place] [address] Conchita Rowley MD [address] [address] Referral ID Status Reason Start Date Expiration Date V isits Requested Visits Authorized [id number] Pending Review 09/04/2022 09/04/2023 1 1 Specialty Diagnoses / Procedures Referred By Contac t Referred To Contact Diagnoses Bilateral foot pain Procedures XR FOOT RIGHT 3 VIEWS Atway, Inga Henderson DPM [address] [address] Referral ID Status Reason Start Date Expiration Date V isits Requested Visits Authorized [id number] New Request 11/18/2022 12/13/2023 1 1 Specialty Diagnoses / Procedures Referred By Contac t Referred To Contact Diagnoses Bilateral foot pain Procedures XR FOOT LEFT 3 VIEWS Atway, Inga Henderson DPM [address] [facility] [address] [place] [address] Referral ID Status Reason Start Date Expiration Date V isits Requested Visits Authorized [id number] New Request 11/18/2022 12/13/2023 1 1 Summary Purpose Family History No Family History Records FoundNo Family History Records Found Advance Directives No Advanced Directives Records FoundNo Advanced Directives Records Found Additional Source Comments INFORMATION SOURCE (unrecogn ized section and content) DATE CREATED AUTHOR AUTHOR'S ORGANBAILEY ATION 12/04/2022 [facility] Reason for Visit (unrecogniz ed section and content) Referral ID Status Reason Start Date Expiration Date V isits Requested Visits Authorized [id number] New Request 11/18/2022 12/13/2023 1 1 Specialty Diagnoses / Procedures Referred By Contac t Referred To Contact Diagnoses Bilateral foot pain Procedures XR FOOT LEFT 3 VIEWS Atway, Said Beatriz, DPM [address] [place] [address] Referral ID Status Reason Start Date Expiration Date V isits Requested Visits Authorized [id number] New Request 11/18/2022 12/13/2023 1 1 Reason Comments Follow-up Pt presents to FU b/ l bunions, pt would like to discuss sx for L foot. Pt having a difficult time wearing shoes. Follow-up Reason Onset Date Comments Appointment 03/04/2023 Reason Onset Date Comments Surgery 05/25/2023 Care Teams (unrecognized sec tion and content) Brass Pickler Relationship Specialty Start Date End Date Shirley Guan DO [address] [place] [phone] PCP - General Family Medicine 12/10/20 Brass Pickler Relationship Specialty Start Date End Date Shirley Guan DO [address] [place] [place] [phone] PCP - General Family Medicine 12/10/20 Brass Pickler Relationship Specialty Start Date End Date Shirley Guan DO [address] [place] [phone] PCP - General Family Medicine 12/10/20 Brass Pickler Relationship Specialty Start Date End Date Shirley Guan DO [address] [facility] [place] [phone] PCP - General Family Medicine 12/10/20 FOR RECORDS PERTAINING TO PATIENTS WHO ARE OR HAVE BEEN ENROLLED IN A CHEMICAL DEPENDENCY/SUBSTANCEABUSE PROGRAM, SOME INFORMATION MAY BE OMITTED. This clinical summary was aggregated from multiple sources. Caution should be exercised in using it in the provision of clinical care. This summary normalizes information from multiple sources, and as a consequence, information in this document may materially change the coding, format and clinical context of patient data. In addition, data may be omitted in some cases. CLINICAL DECISIONS SHOULD BE BASED ON THE PRIMARY CLINICAL RECORDS. [facility]. provides no warranty or guarantee of the accuracy or completeness of information in this document.
== END | disposition home or self-care (01) ==
LOC: LABSPEC 15:19
PROVIDERS: PCP Family Medicine; Referring Provider Otolaryngology; Visit Provider Otolaryngology
DX: J02.9 Acute pharyngitis, unspecified (principal)
CPT/HCPCS: 87070

== ENCOUNTER → 2024-02-21 | Outpatient (CLI) | payer OTHER, SELFPAY ==
[2024-02-21 10:54] LABS: Cholesterol 217 mg/dL (200); Glucose 83 mg/dL (74-106); High Density Lipoprotein 74 mg/dL; Triglycerides 127 mg/dL; Very Low Density Lipoprotein 25 mg/dL (5-40)
== END | disposition home or self-care (01) ==
PROVIDERS: PCP Family Medicine; Referring Provider Family Medicine; Visit Provider Family Medicine
DX: Z00.00 Encounter for general adult medical examination without abnormal findings (principal)
CPT/HCPCS: 36415; 80061; 82947

== ENCOUNTER → 2024-03-13 | Outpatient (CLI) | payer OTHER, SELFPAY ==
--- NOTE | 2024-03-13 07:53 | BI_ITS ---
MAMMOGRAPHY - BILATERAL SCREENING REASON FOR EXAM: Female, 48 years old. Routine annual screening examination. PERTINENT HISTORY: Non-contributory. TECHNIQUE: Digital bilateral breast adelina (3D mammographic acquisition) in the CC and MLO projections. 2-D mediolateral oblique (MLO) and craniocaudad (CC) views of both breasts were obtained. CAD: Full Field Digital Mammography with Computer Added Detection was performed. COMPARISON: Comparison is made with prior study dated October 10, 2021 and October 08, 2020. FINDINGS: Breast Composition: The breasts are extremely dense, which lowers the sensitivity of mammography. There is a 1.4 cm x 1.3 cm well-defined nodule in the axillary region of the left breast. Correlation with ultrasound is recommended. No other significant abnormalities are identified. BI/SCRN MAMM (CAD)W/ADELINA BILAT IMPRESSION: 1.4 cm x 1.3 cm well-defined nodule in the axillary region of the left breast as described. Correlation with ultrasound recommended. ASSESSMENT CATEGORY: BIRADS Category 0: Incomplete. Need additional imaging evaluation. A letter regarding these results will be sent to the patient by the facility within 30 days. Approximately 10% of breast cancers are not detected by mammography. A normal mammogram should not delay biopsy of a clinically suspicious abnormality. [id number] Electronically Signed: Loi Reyes MD at 9:57 EDT ,
== END | disposition home or self-care (01) ==
LOC: OPBI 07:51
PROVIDERS: PCP Family Medicine; Referring Provider Family Medicine; Visit Provider Family Medicine
DX: Z12.31 Encounter for screening mammogram for malignant neoplasm of breast (principal)
CPT/HCPCS: 77063; 77067

== ENCOUNTER → 2024-03-15 | Outpatient (CLI) | payer OTHER, SELFPAY ==
--- NOTE | 2024-03-15 13:57 | US_ITS ---
STUDY: ULTRASOUND BREAST - LEFT REASON FOR EXAM: Female, 48 years old. Abnormal screening mammogram. TECHNIQUE: Axial and longitudinal images of the LEFT breast were performed with a high resolution ultrasound transducer. # OF IMAGES: [id number] COMPARISON: Comparison is made with prior mammogram dated March 13, 2024 and prior sonogram of the left breast dated July 18, 2019. FINDINGS: LEFT Breast: The axillary region of the left breast was examined with ultrasound. 1.4 cm x 1.3 cm x 0.6 cm cyst at the 12:00 position of the breast about 1 cm from the nipple. This corresponds to the mammographic findings. There is also evidence of a 6 mm x 8 mm x 5 mm cyst at the 1:00 in the breast at 5 cm from the nipple as well as a 5 mm x 5 mm x 3 mm cyst at the 3:00 position breast at 4 cm from the nipple. This is also evidence of a 6 mm x 6 mm x 3 mm benign appearing lymph node at the 1:00 position breast at 7 cm from the nipple. US/Breast Limited Unilateral IMPRESSION: The mammographic abnormality corresponds to a cyst. Incidental note is made of 2 other small cysts and a benign-appearing lymph node. Routine mammographic follow-up recommended. ASSESSMENT CATEGORY: BIRADS Category 2: Benign. A letter regarding these results will be sent to the patient by the facility within 30 days. Electronically Signed: Loi Reyes MD at 15:13 EDT ,
== END | disposition home or self-care (01) ==
PROVIDERS: PCP Family Medicine; Referring Provider Family Medicine; Visit Provider Family Medicine
DX: N63.20 Unspecified lump in the left breast, unspecified quadrant (principal)
CPT/HCPCS: 76642

== ENCOUNTER → 2024-07-26 | Outpatient (CLI) | payer OTHER, SELFPAY ==
[2024-07-26 15:54] LABS: Erythrocyte Sedimentation Rate 3 mm/hr (0-30)
[2024-07-26 15:55] LABS: Absolute Lymphocyte Count 2.38 X10^3/uL (0.83-4.51); Absolute Neutrophil Count 4.5 X10^3/uL (2.0-7.7); Basophil# 0.04 X10^3/uL; Basophil% 0.5 % (0-1); Eosinophils% 1.3 % (0-5); Hematocrit 39.4 % (37-47); Hemoglobin 13.2 g/dL (12.0-15.0); Lymphocyte # 2.38 X10^3/ul (0.83-4.51); Lymphocyte % 31.3 % (19-41); Mean Corp Hgb Conc 33.5 g/dL (32-36); Mean Corpuscular Hgb 31.8 pg (27.0-32.0); Mean Corpuscular Volume 94.9 fL (81-99); Mean Platelet Vol. 11.5 fl (6.2-12.0); Monocyte# 0.57 X10^3/uL; Monocyte% 7.5 % (0-10); NRBC Flagged by Analyzer 0 % (0-5); Neutrophil # 4.49 X10^3/uL (2.7-7.7); Neutrophil % 59.1 % (47-70); Platelet Count 354 K/mm3 (150-450); RBC Distribution Width CV 12.7 % (11.6-14.6); RBC Distribution Width SD 44.5 fl (35.1-43.9); Red Blood Count 4.15 M/mm3 (4.2-5.4); White Blood Count 7.6 K/mm3 (4.4-11.0)
[2024-07-26 16:25] LABS: ALB/GLOB Ratio 0.9 RATIO (0.9-2.4); AST(SGOT) 22 U/L (15-37); Alanine Aminotransfer ALT/SGPT 22 U/L (13-56); Albumin, Serum 3.6 g/dL (3.2-5.0); Alkaline Phosphatase 72 U/L (45-117); Anion Gap 7 (5-15); BUN 16 mg/dL (7-18); BUN/Creat Ratio 21.4 RATIO (10-20); CRP < 2.90 mg/L (0.0-3.0); Calcium,Total 8.6 mg/dL (8.5-10.1); Chloride 101 mmol/L (98-107); Creatinine, Serum 0.75 mg/dL (0.55-1.02); EST Glomerular Filtration Rate 87 mL/min (>60); Est Glom Filt Rate - Afr Amer 105 mL/min (>60); Globulin 3.8 g/dL (2.2-4.2); Glucose 83 mg/dL (74-106); Potassium 3.7 mmol/L (3.5-5.1); Protein, Total 7.4 g/dL (6.4-8.2); Sodium Level 136 mmol/L (136-145); Thyroid Stim Hormone (TSH) 0.972 uIU/mL (0.358-3.740)
[2024-08-01 11:09] LABS: Beef <0.10 kU/L (Class 0); Chocolate <0.10 kU/L (Class 0); Codfish <0.10 kU/L (Class 0); Corn <0.10 kU/L (Class 0); Egg, Whole <0.10 kU/L (Class 0); Milk (Cow) <0.10 kU/L (Class 0); Mussels <0.10 kU/L (Class 0); Peanut <0.10 kU/L (Class 0); Pork <0.10 kU/L (Class 0); Salmon <0.10 kU/L (Class 0); Shrimp <0.10 kU/L (Class 0); Soybean <0.10 kU/L (Class 0); Tuna <0.10 kU/L (Class 0); Wheat <0.10 kU/L (Class 0)
== END | disposition home or self-care (01) ==
LOC: MTLAB 13:31
PROVIDERS: PCP Family Medicine; Referring Provider Family Medicine; Visit Provider Family Medicine
DX: R19.7 Diarrhea, unspecified (principal); R10.9 Unspecified abdominal pain; K92.1 Melena
CPT/HCPCS: 36415; 80053; 84443; 85025; 85652; 86003; 86005; 86140

== ENCOUNTER → 2025-01-23 | Outpatient (CLI) | payer OTHER, SELFPAY ==
[2025-01-23 10:11] LABS: Absolute Lymphocyte Count 1.93 X10^3/uL (0.83-4.51); Absolute Neutrophil Count 1.7 X10^3/uL (2.0-7.7); Basophil# 0.03 X10^3/uL; Basophil% 0.7 % (0-1); Eosinophil# 0.15 X10^3/uL; Eosinophils% 3.6 % (0-5); Hematocrit 38.8 % (37-47); Hemoglobin 12.8 g/dL (12.0-15.0); Lymphocyte # 1.93 X10^3/ul (0.83-4.51); Lymphocyte % 46.3 % (19-41); Mean Corpuscular Hgb 31.4 pg (27.0-32.0); Mean Corpuscular Volume 95.3 fL (81-99); Mean Platelet Vol. 10.7 fl (6.2-12.0); Monocyte# 0.37 X10^3/uL; Monocyte% 8.9 % (0-10); NRBC Flagged by Analyzer 0 % (0-5); Neutrophil # 1.68 X10^3/uL (2.7-7.7); Neutrophil % 40.3 % (47-70); Platelet Count 301 K/mm3 (150-450); RBC Distribution Width CV 12.6 % (11.6-14.6); RBC Distribution Width SD 44.5 fl (35.1-43.9); Red Blood Count 4.07 M/mm3 (4.2-5.4); White Blood Count 4.2 K/mm3 (4.4-11.0)
[2025-01-23 10:37] LABS: ALB/GLOB Ratio 1.3 RATIO (0.9-2.4); AST(SGOT) 25 U/L (<=31); Alanine Aminotransfer ALT/SGPT 15 U/L (<=34); Alkaline Phosphatase 77 U/L (35-104); Anion Gap 9 (5-15); BUN 19 mg/dL (4-19); BUN/Creat Ratio 24.8 RATIO (10-20); Calcium,Total 9.5 mg/dL (7.6-11.0); Carbon Dioxide 28.5 mmol/L (21.0-32.0); Chloride 103 mmol/L (98-108); Cholesterol 206 mg/dL (<=200); Creatinine, Serum 0.77 mg/dL (0.70-1.20); EST Glomerular Filtration Rate 95 (>60); Estradiol < 5.0 pg/mL; Globulin 3.1 g/dL (2.2-4.2); Glucose 85 mg/dL (70-99); High Density Lipoprotein 76 mg/dL; Low Density Lipoprotein Calc. 120 mg/dL; Potassium 4.3 mmol/L (3.3-5.1); Sodium Level 140 mmol/L (133-145); Total Bilirubin 0.36 mg/dL (0.00-1.30); Triglycerides 53 mg/dL; Very Low Density Lipoprotein 11 mg/dL (5-40); cholesterol:hdl ratio screen 2.72
[2025-01-24 04:07] LABS: PROGESTERONE 0.2 ng/mL (.)
[2025-01-27 15:08] LABS: Testosterone, % Free 2.57 % (0.50-2.80); Testosterone, Free 0.36 ng/dL (0.10-0.85); Testosterone, Total 14 ng/dL (4-50)
== END | disposition home or self-care (01) ==
PROVIDERS: PCP Family Medicine; Referring Provider Family Medicine; Visit Provider Family Medicine
DX: Z13.1 Encounter for screening for diabetes mellitus (principal); Z13.220 Encounter for screening for lipoid disorders; Z51.81 Encounter for therapeutic drug level monitoring; N95.1 Menopausal and female climacteric states
CPT/HCPCS: 36415; 80053; 80061; 82670; 84144; 84402; 84403; 85025

== ENCOUNTER 2025-01-29 09:34 | Emergency (ER) | payer OTHER, SELFPAY ==
[2025-01-29 09:34] VITALS: BP 157/100; PULSE 62; RESP 18; TEMP 35.8; O2SAT 97; BMI 22.5
--- NOTE | 2025-01-29 09:52 | CT_ITS ---
PROCEDURE: SPINE CERVICAL WITHOUT CONTRAS 01/29/2025 REASON FOR EXAM: NECK PAIN TECHNIQUE: Contiguous axial scans of 1.25 mm slice thicknesses without intravenous contrast. Sagittal and coronal reconstruction images were also obtained. One or more dose reduction techniques were used (e.g., Automated exposure control, adjustment of the mA and/or kV according to patient size, use of iterative reconstruction technique). RADIATION DOSE SUMMARY: DLP: 309.61 mGycm COMPARISON: No relevant prior. FINDINGS: Vertebra: Vertebral bodies normal in height. Mild spondylosis is seen anteriorly, multilevel. Mild posterolateral spurring of the C2 vertebra on the left, axial image 52. C1-C2: Atlantoaxial articulation is maintained. Alignment: No scoliosis. No spondylolisthesis. Discs: Normal in height. Facets: A fracture is noted involving the left lateral mass at C2-C3. Fracture appears to be slightly comminuted. Signs of healing are noted at the fracture site with bony overgrowth. Foramens: Marked narrowing of the C2-3 neural foramen on the left apparently causing nerve root compression. Multilevel facet arthropathy is noted elsewhere bilaterally, mild. Soft tissues: Prevertebral soft tissues are normal. CT/Spine Cervical without Contras IMPRESSION: Old fracture of the left lateral mass at C2-C3 with bony overgrowth and severe narrowing of the C2-3 foramen. Mild multilevel facet arthropathy and spondylosis. Reading Location: [place] [address]
--- NOTE | 2025-01-29 09:55 | EX.ED.DYSGE1 ---
HPI History of Present Illness Chief Complaint: Other, Pain/Inj Informant: patient Narrative Narrative: 49-year-old female presenting to the emergency room with the chief complaint of neck pain. Patient states that last night before bed she had some discomfort on the left side of her neck going from the musculature down towards the shoulder blade. She used a heating pad and had a gentle massage. She states that she woke during the night with significantly more pain and pain with movement of the head particularly looking left and flexion extension. She states she can look to the right and its uncomfortable but not as bad is going to the left. She notes the pain radiates down into her left arm. She denies any recent trauma but does note that she fell off a ladder in August. She noted that after that fall she was not able to reach behind her back like she could on her right arm. She had bunion surgery and decided to rest the arm for 2 months. She notes that she still does not have the range of motion but has not had pain in her neck like this. She denies any fevers chest pain abdominal pain dyspnea. She denies any throat pain. She states she has a history of migraines but does not have a headache with this. She denies any rash. [facility] Medical History Normal hysteroscopy Laryngitis Acute pharyngitis Wears glasses Cancer Alcohol use History of steroid therapy Kidney stone Back pain Migraine headache Gastric reflux Non-smoker Anxiety History of melanoma Home Medications ?Medication ?Instructions ?Recorded ?Last Taken ?Type fluoxetine 20 mg tablet 20 mg PO DAILY 12/23/18 01/29/25 History ascorbic acid (vitamin C) 1,000 mg 1 g PO DAILY 01/29/25 01/28/25 History tablet (C-1000) diazepam 5 mg tablet 5 mg PO Q8 PRN Muscle Spasm #15 01/29/25 Unknown Rx tabs estradiol 0.1 mg/24 hr semiweekly 1 patch transdermal Q3D 01/29/25 01/28/25 History transdermal patch magnesium 200 mg tablet 200 mg PO DAILY 01/29/25 01/28/25 History naproxen 500 mg tablet 500 mg PO BID PRN pain #14 tabs 01/29/25 Unknown Rx oxycodone-acetaminophen 5 mg-325 1 tab PO Q6H PRN PRN Pain 3 days 01/29/25 Unknown Rx mg tablet #12 TABLETS progesterone micronized 100 mg 100 mg PO QHS 01/29/25 Unknown History capsule vitamin E 268 mg (400 unit) capsule 268 mg PO DAILY 01/29/25 01/28/25 History zinc acetate 25 mg (zinc) capsule 25 mg PO DAILY 01/29/25 01/28/25 History (Wilzin) zolmitriptan 5 mg tablet 5 mg PO PRN PRN migraine headache 01/29/25 01/22/25 History Allergy/AdvReac Type Severity Reaction Status Date / Time No Known Allergies Allergy Verified 09/03/24 10:00 Family History Father Cancer skin Sister Melanoma Alcoholism Surgical History History of bunionectomy Hx of cystoscopy History of lithotripsy Social History Smoking Status: Never smoker alcohol intake: current details: rarely substance use type: does not use what type of physical activity do you participate in: running frequency: 5-6 times per week ROS ROS ED Constitutional Constitutional ED: Denies chills or weight loss Eyes Eyes: Denies change in vision or diplopia ENT ENT ED: Denies ear pain, rhinorrhea or sore throat Cardiovascular Cardiovascular: Denies chest pain, orthopnea, palpitations or racing heartbeat Respiratory/Chest Respiratory/Chest: Denies cough, dyspnea or orthopnea Gastrointestinal Gastrointestinal: Denies abdominal pain, diarrhea, nausea or vomiting Genitourinary Genitourinary ED: Denies dysuria, hematuria or urinary frequency Musculoskeletal Musculoskeletal: Reports back pain and neck pain; Denies arthralgias or myalgias Integumentary Denies abscess or rash Neurologic Neurologic: Reports paresthesias LUE; Denies headache(s) or weakness Psychiatric Psychiatric: Denies anxiety, depression, suicidal ideation or suicidal thoughts Endocrine Endocrinology: Denies polydipsia, polyphagia or polyuria Allergic/Immunologic Allergic/Immunologic ED: Denies mouth swelling, tongue swelling or urticaria EXAM Physical Exam Const Vital Signs: 01/29/25 09:34 01/29/25 09:54 01/29/25 11:18 Temperature 96.4 F L 96.4 F L Temperature Source Temporal Pulse Rate 62 56 L Respiratory Rate 18 18 Respiratory Effort Normal Blood Pressure 157/100 H 135/73 H Blood Pressure Mean 119 93 Pulse Ox 97 100 Oxygen Delivery Method Room Air Positive well nourished and well developed General Appearance ED: well developed HEENT Reports normocephalic, head/scalp atraumatic and moist mucous membranes Eyes PERRL and EOMs intact bilaterally Neck no lymphadenopathy, supple and no JVD Neck Narrative: Patient has tenderness to palpation along the left paraspinal neck musculature and trapezius. There are tissue texture changes to suggest spasm. I do not appreciate a rash or erythema. Resp normal respiratory effort and clear to auscultation bilaterally Cardio regular rate, regular rhythm and no murmurs GI normal to inspection, nondistended, normoactive bowel sounds and non-tender Palpation: soft Back/Spine no CVA tenderness and normal ROM Extremity Extremity Narrative: Decreased range of motion of the left shoulder joint compared to right. No deformity. General Extremety ED: Negative for edema General Extremity: Negative for edema Neuro oriented x3 and CN's II-XII intact bilaterally Neuro Narrative: Normal sensation muscle strength of the left arm. Normal DTR triceps brachial radialis. Sensorium / Orientation: alert Motor Exam: strength 5/5 throughout Psych mental status grossly normal Mood & Affect: Negative for depressed or tearful Skin no rashes or lesions noted and no wounds MDM MDM MDM Narrative Medical decision making narrative: Differential diagnosis includes but not limited to muscle spasm disc herniation generative cervical disease nerve impingement referred pain from abdomen/chest CT of the cervical spine demonstrates an old fracture of the lateral mass at C2-C3 with bony overgrowth and narrowing of the foramen. Patient received a dose of Toradol. I spoke with the patient regarding the CT findings. I do wonder if that could possibly be from her fall and August. She does have physical exam evidence of muscle spasm. I think is reasonable to treat her with some diazepam and pain medication. I talked her about risk benefits of them including sedation respiratory depression altered mental status constipation etc. I recommend taking 1 at a time rather than both together. I am recommending that she follow-up with spine surgery to discuss her CT. She is comfortable with this plan. She remains neurologically intact. History & Record Review Discussion w/independent historian: Patient Radiography Diagnostic Testing: Clinical Impression(s) from Imaging Studies Cervical Spine CT 01/29/25 09:52 IMPRESSION: Old fracture of the left lateral mass at C2-C3 with bony overgrowth and severe narrowing of the C2-3 foramen. Mild multilevel facet arthropathy and spondylosis. Reading Location: [place] [id number] Discharge Plan Triage Chief Complaint: Other, Pain/Inj ED Provider: Orlando Leiva Dx/Rx/DC Orders Clinical Impression: C2 cervical fracture, Cervical paraspinal muscle spasm, Cervical radiculopathy Instructions: Cervical Radiculopathy, ED Neck Spasm, No Trauma Prescriptions: New oxycodone-acetaminophen 5-325 mg tablet 1 tab PO Q6H PRN PRN (Reason: Pain) 3 Days Qty: 12 0RF naproxen 500 mg tablet 500 mg PO BID PRN (Reason: pain) Qty: 14 0RF diazepam [diazepam] 5 mg tablet 5 mg PO Q8 PRN (Reason: Muscle Spasm) Qty: 15 0RF No Action fluoxetine 20 MG tablet 20 mg PO DAILY estradiol 0.1 mg/24 hr patch semiweekly 1 patch transdermal Q3D zolmitriptan 5 mg tablet 5 mg PO PRN PRN (Reason: migraine headache) progesterone micronized 100 mg capsule 100 mg PO QHS Patient Comments: HAS NOT RECEIVED MAIL ORDER SO HASN'T STARTED YET ascorbic acid (vitamin C) [C-1000] 1,000 mg tablet 1 g PO DAILY vitamin E 268 mg (400 unit) capsule 268 mg PO DAILY Wilzin 25 mg (zinc) capsule 25 mg PO DAILY magnesium 200 mg tablet 200 mg PO DAILY Primary Care Provider: Shirley Guan Referrals: Giovany Victor MD [Med Staff - Active Staff] - As soon as possible (for local spine evaluation) Jo-Ann Fraga MD [Med Staff - Ticket Machine Operator] - Print Language: Serbian Disposition Disposition: Home, Self Care Discharge Date/Time: 01/29/25 13:00
[2025-01-29] MEDS: Ketorolac 60 MG/2 ML Vial IM (10:13)
[2025-01-29 11:18] VITALS: BP 135/73; PULSE 56; RESP 18; TEMP 35.8; O2SAT 100
--- NOTE | 2025-01-29 12:23 | ED.RN ---
pain to neck not abd on med re- eval
--- NOTE | 2025-01-29 13:00 | ED.RN ---
pt pleasant and understanding of DC
== END 2025-01-29 13:00 | disposition home or self-care (01) ==
PROVIDERS: Emergency Provider Emergency Medicine; PCP Family Medicine; Visit Provider Emergency Medicine
DX: S12.190A Other displaced fracture of second cervical vertebra, initial encounter for closed fracture (principal); W11.XXXA Fall on and from ladder, initial encounter; M54.12 Radiculopathy, cervical region; M62.838 Other muscle spasm
CPT/HCPCS: 72125; 96372; 99283

== ENCOUNTER → 2025-02-22 | Outpatient (CLI) | payer OTHER, SELFPAY ==
--- NOTE | 2025-02-22 10:15 | MRI_ITS ---
PROCEDURE: BREAST BILATERAL W/O AND W 02/22/2025 REASON FOR EXAM: 49-year-old female presents for MRI due to dense breast tissue. TECHNIQUE: BREAST BILATERAL W/O AND W CONTRAST: 12 mL of Clariscan IV COMPARISON: Mammogram 03/13/2024 and 10/10/2020. Ultrasound 03/15/2024 FINDINGS: TISSUE DENSITY: The breasts are heterogeneously dense, which may obscure small masses. Background Parenchymal Enhancement: Mild RIGHT Breast: No suspicious mass or non-mass enhancement. LEFT Breast: No suspicious mass or non-mass enhancement. Other Findings: No suspicious axillary or internal mammary lymph nodes. Visualized portions of the thoracic and abdominal viscera are unremarkable. MRI/Breast Bilateral W/O and W IMPRESSION: OVERALL FINAL ASSESSMENT BI-RADS 1: NEGATIVE. RECOMMEND ANNUAL MAMMOGRAPHIC SCREENING. RECOMMENDATION: Routine annual follow-up in 1 Year Reading Location: [id number]
== END | disposition home or self-care (01) ==
LOC: OPMRI 10:08
PROVIDERS: PCP Family Medicine; Referring Provider Family Medicine; Visit Provider Family Medicine
DX: R92.30 Dense breasts, unspecified (principal)
CPT/HCPCS: 77049; A9575; A4216; C8908

== ENCOUNTER → 2025-05-12 | Outpatient (CLI) | payer OTHER, SELFPAY | END | disposition home or self-care (01) | PROVIDERS: PCP Family Medicine; Referring Provider Nurse Practitioner Family; Visit Provider Nurse Practitioner Family | DX: R31.9 Hematuria, unspecified (principal) | CPT/HCPCS: 87086; 87088; 87186 ==

== ENCOUNTER → 2025-06-15 | Outpatient (CLI) | payer OTHER, SELFPAY ==
--- NOTE | 2025-06-15 15:32 | MRI_ITS ---
PROCEDURE: SPINE CERVICAL (ROUTINE) 06/15/2025 REASON FOR EXAM: DDD CERVICAL SPINE TECHNIQUE: Procedure Code: MRISPC Modality: MR Procedure: SPINE CERVICAL (ROUTINE) Multiplanar and multisequence images were obtained without IV contrast administration. COMPARISON: CT cervical spine 01/29/2025. FINDINGS: Vertebrae: Cervical vertebral body heights are preserved. Bone marrow signal is unremarkable. Alignment: Normal. No spondylolisthesis. Spinal Cord: Cervical spinal cord is of normal size and signal intensities. Structures at the foramen magnum are unremarkable. C2-3: Left facet joints arthropathy. Severe left foramina stenosis. No right foraminal or canal stenosis. C3-4: No significant foraminal or canal stenosis. Mild facet joint arthropathy. Small disc osteophyte complex measures 2 mm. C4-5: Disc osteophyte complex measures 2 mm. Facet joint arthropathy. Mild bilateral foramina stenosis. Mild canal stenosis. C5-6: No significant foraminal or canal stenosis. Mild facet joints arthropathy. C6-7: No foraminal or canal stenosis. C7-T1: No foraminal or canal stenosis. MRI/Spine Cervical (Routine) IMPRESSION: Severe left foramina stenosis at C2-C3 from facet joint arthropathy. No significant canal stenosis. Reading Location: [id number]
--- OUTSIDE RECORDS SUMMARY | 2025-06-15 15:44 | XMS RPT_ITS | CCD ---
Author Organization [facility] Care Team Providers Care Veneer Stock Grader Name Role Phone Dr. Shirley Guan Primary Care Provider Dr. Shirley Guan Referring Provider [phone] DEX Hughes Attending Provider Dr. Corky Gabriel Attending Provider Unavailable Primary Care Provider CONCHITA Watkins Attending Unavailable Dr. Shirley Guan Primary Care Provider Dr. Sihrley Guan Referring Provider Fouzia SEED BUYER, 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 Chito Attending Provider Shirley Guan DO Primary Care Provider ATWAY, SAID A Referring Unavailable ATWAY, SAID A Attending Unavailable MALYS, SHIRLEY Primary Care Unavailable ATWAY, SAID A Referring Unavailable ATWAY, SAID A Attending Unavailable MALYS, SHIRLEY Primary Care Unavailable ATWAY, SAID A Attending Unavailable MALYS, SHIRLEY Primary Care Unavailable SELF, SELF Referring Unavailable ATWAY, SAID A Attending Unavailable ATWAY, SAID A Admitting Unavailable MALYS, SHIRLEY Primary Care Unavailable MalShirley chung DO Primary Care Provider Dr. Jo-Ann Fraga Primary Care Provider Dr. Jo-Ann Fraga Referring Provider DEX Box Attending Provider Dr. Jo-Ann Fraga MD Primary Care Provider [phone] Dr. Shirley Guan DO Attending Provider Dr. Shirley Guan DO Referring Provider Abbie ARAIZA, Dr. Perry Emergency Provider Freida ARAIZA, Dr. Watson Primary Care Provider Abbie ARAIZA, Dr. Perry Attending Provider Philly MARTIN, Dr. Busch Attending Provider Philly MARTIN, Dr. Busch Referring Provider Griselda 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, Eleni Attending Provider Philly MARTIN, Dr. Busch Attending Physician Freida ARAIZA, Dr. Watson Primary Care Physician Freida DO, Dr. Watson Referring Provider Griselda 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, Eleni Attending Physician Griselda 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, Eleni Referring Provider Referred, Self Attending Physician Unavailable Referred, Self Referring Provider Unavailable Michel MARTIN, Andriy Goddard Unavailable Sultan MARTIN, Assem Unavailable Philly MARTIN, Jo-Ann Layton Unavailable Malys, Shirley Primary Care Unavailable Miedel, Jo-Ann Attending Unavailable Miedel, Jo-Ann Referring Unavailable AlleeneEleni betancur Attending Unavailable Alleene, Eleni Referring Unavailable Malys, Shirley Primary Care Unavailable Malys, Shirley Attending Unavailable Malys, Shirley Referring Unavailable Miedel, Jo-Ann Primary Care Unavailable Malys, Shirley Attending Unavailable Malys, Shirley Referring Unavailable Miedel, Jo-Ann Primary Care Unavailable Malys, Shirley Primary Care Unavailable Orlando Leiva Attending Unavailable Malys, Shirley Attending Unavailable Malys, Shirley Referring Unavailable Malys, Shirley Primary Care Unavailable Referred, Self Attending Unavailable Referred, Self Referring Unavailable Malys, Shirley Primary Care Unavailable Griselda, Eleni Attending Unavailable Malys, Shirley Referring Unavailable Malys, Shirley Primary Care Unavailable Miedel, Jo-Ann Primary Care Unavailable Miedel, Jo-Ann Referring Unavailable Pete Villanueva Attending Unavailable Miedel, Jo-Ann Primary Care Unavailable Jo-Ann Fraga Referring Unavailable Stuart Warren NP Attending Unavailable Andriy Pearson Attending Unavailable Andriy Pearson Referring Unavailable Shirley Guan Primary Care Unavailable Allergies Allergy Classification Reported Allergen(s) Allergy Type Date of Onset Reaction(s) Facility (1 source) ANESTHESIA Drug allergy (disorder) 07-05-2024 [facility] (1 source) PLANT POLLENS (HAY FEVER) Allergy to substance (disorder) 09-27-2017 [facility] Medications Current Medications Medication Drug Class(es) Dates Sig (Normalized) Sig (Original) ascorbic acid 1000 mg oral tablet (4 sources) Vitamin C Start: 01-29-2025 take 1 tablet by mouth once daily Start: 01-29-2025 take 1 tablet by mouth once da regina Ascorbic Acid (Vitamin C) (C-1000) 1,000 mg tablet Active 1 g PO DAILY January 29, 2025 12:00am citalopram 20 mg oral tablet (6 sources) Serotonin Reuptake Inhibitor Start: 11-13-2020 take 1 tablet by mouth once daily citalopram 20 MG tablet Take 20 mg by mouth daily. 0 11/13/2020 Active 84 hr estradiol 0.88113 mg/hr transdermal system (5 sources) Estrogen Start: 01-29-2025 estradiol 0.1 mg /24 hr semiweekly transdermal patch active Gerardo Smyth LPN [facility] [place] [facility] FLUoxetine 20 mg oral tablet (17 sources) Serotonin Reuptake Inhibitor Start: 12-23-2018 take 1 tablet by mouth once daily Start: 12-23-2018 take 1 mg by mouth once daily Fluoxetine Active 20 MG PE PO DAILY December 22, 2018 11:00pm take 1 capsule by mo [facility] once daily FLUoxetine 20 MG capsule Take 1 capsule by mouth daily. 0 Active Magnesium (4 sources) Start: 01-29-2025 take 1 tablet by mouth once da regina Start: 01-29-2025 take 1 tablet by bambi once daily Magnesium 200 mg tablet Active 200 mg PO DAILY January 29, 2025 12:00am meloxicam 15 mg oral tablet (1 source) Nonsteroidal Anti-inflammatory Drug Start: 06-04-2025 meloxicam 15 mg tablet 1 tablet by mouth once a day active Andriy Pearson MD, [address] [facility] [address] [facility] [place] [facility] naproxen 500 mg oral tablet (5 sources) Nonsteroidal Anti-inflammatory Drug Start: 01-29-2025 take 1 tablet by mouth twice daily as needed for pain nortriptyline 10 mg oral capsule (6 sources) Tricyclic Antidepressant Start: 11-20-2020 take 1-3 capsules by mouth at bedtime nortriptyline 10 MG capsule take 1 to 3 capsules by mouth at bedtime 0 11/20/2020 Active ondansetron 4 mg oral tablet (4 sources) Serotonin-3 Receptor Antagonist Start: 08-29-2020 take 1 tablet by mouth every six hours Ondansetron Hcl (Zofran) 4 mg tablet Active 4 MG PO EVERY 6 HOURS August 29, 2020 12:00am progesterone 100 mg oral capsule (4 sources) Progesterone Start: 01-29-2025 take 1 capsule by mouth at bedtime vitamin e 180 mg oral capsule (4 sources) Start: 01-29-2025 take 1 capsule by mouth once daily zinc acetate 25 mg oral capsule (4 sources) Start: 01-29-2025 take 1 capsule by mouth once daily ZOLMitriptan 5 mg oral tablet (20 sources) Serotonin-1b and Serotonin-1d Receptor Agonist Start: 01-29-2025 Start: 12-23-2018 take 5 mg by mouth once daily Zolmitriptan Active 5 MG PO DAILY December 22, 2018 11:00pm Start: 09-27-2017 End: 09-03-2024 Zolmitriptan 5 MG tablet Dis continued 5 mg PO NEEDED as needed for MIGRAINES December 23, 2018 12:00am September 03, 2024 11:00am Start: 06-26-2013 End: 12-14-2018 take 1 tablet by mouth once Zolmitriptan 5 MG tablet Discontinued 5 mg PO ONE TIME June 26, 2013 12:00am December 14, 2018 8:41am Completed/Discontinued Medications Medication Drug Class(es) Dates Sig (Normalized) Sig (Original) acetaminophen 325 mg / oxyCODONE hydrochloride 5 mg oral tablet (5 sources) Opioid Agonist Start: 01-29-2025 End: 05-12-2025 Oxycodone-Acetamino phen 5-325 mg tablet Discontinued 1 {tbl} PO EVERY 6 HOURS NEEDED as needed for Pain 12 3 0 January 29, 2025 May 12, 2025 8:10am Spasm of cervical paraspinous muscle Other muscle spasm oxycodone-acetam inophen 5 mg-325 mg tablet active Gerardo Libra AWANN [facility] azithromycin 250 mg oral tablet (5 sources) Macrolide Antimicrobial Start: 09-03-2024 End: 01-29-2025 Azithromycin (Zithromax Z-Roger) 250 mg tablet Discontinued 0 PO .COMPLEX 6 0 September 03, 2024 1:00am January 29, 2025 9:55am For 250 mg dose pack: take 500 mg today (day 1), then 250 mg for 4 days (days 2-5) PO diazePAM 5 mg oral tablet (5 sources) Benzodiazepine Start: 01-29-2025 End: 05-12-2025 take 1 tablet by mouth every eight hours as needed for muscle spasms Diazepam 5 mg tablet Discontinued 5 mg PO EVERY 8 HOURS as needed for Muscle Spasm 15 0 January 29, 2025 12:00am May 12, 2025 8:10am diphenhydrAMINE hydrochloride 25 mg oral tablet (10 sources) Histamine-1 Receptor Antagonist Start: 06-26-2013 End: 12-14-2018 Diphenhydramine HCl 25 MG Discontinued 25 mg PO NEEDED as needed for SLEEPING June 26, 2013 12:00am December 14, 2018 8:41am fluticasone propionate 0.05 mg/actuat metered dose nasal spray (10 sources) Corticosteroid Start: 12-23-2018 End: 09-03-2024 Fluticasone Propionate 1 SPRAY spray,suspension Discontinued 1 NMA NASAL NEEDED as needed for ALLERGIES December 23, 2018 12:00am September 03, 2024 11:00am Start: 12-23-2018 Fluticasone Pr opionate Active 1 SPRAY NASAL NEEDED December 22, 2018 11:00pm Start: 12-23-2018 Fluticasone Pr opionate Active 1 SPRAY NASAL DAILY December 22, 2018 11:00pm gabapentin 100 mg oral capsule (4 sources) Anti-epileptic Agent Start: 01-29-2025 End: 01-29-2025 take 1 capsule by mouth at bedtime Gabapentin 100 mg capsule Discontinued 100 mg PO AT BEDTIME January 29, 2025 12:00am January 29, 2025 10:16am nitrofurantoin, macrocrystals 25 mg / nitrofurantoin, monohydrate 75 mg oral capsule (2 sources) Nitrofuran Antibacterial Start: 05-12-2025 End: 05-17-2025 take 1 capsule by mouth every twelve hours at mealtime Nitrofurantoin Monohyd/M-Cryst (Macrobid) 100 mg capsule Discontinued 100 mg PO Q12H 10 5 0 May 12, 2025 12:00am May 16, 2025 12:00am May 17, 2025 12:13am must administer with a meal/food PARoxetine mesylate 20 mg oral tablet (10 sources) Serotonin Reuptake Inhibitor Start: 06-26-2013 End: 12-14-2018 take 1 tablet by mouth once daily Paroxetine Hcl 20 MG tablet Discontinued 20 mg PO DAILY June 26, 2013 12:00am December 14, 2018 8:41am Problems Active Problems Problem Classification Problem Date Documented Date Episodic/Chronic Abdominal pain (10 sources) Left flank pain; Translations: [Unspecified abdominal pain] 08-29-2020 Episodic Acquired foot deformities (2 sources) Tailor's bunion; Translations: [Hallux valgus (acquired), left foot] Onset: 07-05-2024 01-30-2025 Chronic Allergic reactions (10 sources) Contact dermatitis due to poison [place]inity; Translations: [Allergic contact dermatitis due to plants, except food] 12-23-2018 Episodic Genitourinary symptoms and ill-defined conditions (1 source) Hematuria, unspecified; Translations: [Hematuria, unspecified] Onset: 05-25-2025 Episodic Headache; including migraine (10 sources) Migraine; Translations: [Migraine, unspecified, not intractable, without status migrainosus] 12-23-2018 Chronic Immunizations and screening for infectious disease (10 sources) Contact with and (suspected) exposure to other viral communicable diseases; Translations: [Contact with or suspected exposure to other viral communicable disease] 06-17-2021 Episodic Melanomas of skin (1 source) Malignant melanoma of skin of cheek; Translations: [Malignant melanoma of other parts of face] Onset: 09-27-2017 09-27-2017 Chronic Menopausal disorders (1 source) Menopausal and female climacteric states; Translations: [Menopausal and female climacteric states] Onset: 05-30-2025 Chronic Menstrual disorders (1 source) Excessive and frequent menstruation with regular cycle; Translations: [Excessive and frequent menstruation with regular cycle] Onset: 05-30-2025 Chronic Other aftercare (1 source) Encounter for therapeutic drug level monitoring; Translations: [Encounter for therapeutic drug level monitoring] Onset: 05-30-2025 Episodic Other connective tissue disease (3 sources) Pain in both feet; Translations: [Pain in right foot] Episodic Other connective tissue disease (2 sources) Pain in right foot; Translations: [Pain in right foot] Onset: 05-28-2023 Episodic Other connective tissue disease (2 sources) Pain in left foot; Translations: [Pain in left foot] Onset: 05-28-2023 Episodic Other connective tissue disease (4 sources) Spasm of cervical paraspinous muscle; Translations: [Other muscle spasm] 01-29-2025 Episodic Other fractures (4 sources) Fracture of second cervical vertebra; Translations: [Unspecified displaced fracture of second cervical vertebra, initial encounter for closed fracture] 01-29-2025 Episodic Other lower respiratory disease (5 sources) Cough; Translations: [Cough] 09-03-2024 Episodic Other screening for suspected conditions (not mental disorders or infectious disease) (2 sources) Encounter for screening for diabetes mellitus; Translations: [Encounter for screening for diabetes mellitus] Onset: 01-29-2025 Episodic Other upper respiratory disease (1 source) Chronic pharyngitis; Translations: [Chronic pharyngitis] Chronic Spondylosis; intervertebral disc disorders; other back problems (4 sources) Degeneration of cervical intervertebral disc; Translations: [Other cervical disc degeneration, unspecified cervical region] Onset: 01-30-2025 06-04-2025 Chronic Superficial injury; contusion (12 sources) Contusion of left ankle; Translations: [Contusion of left ankle, initial encounter] Episodic Unclassified (3 sources) for local spine evaluation Unclassified (1 source) Dense breasts, unspecified; Translations: [Dense breasts, unspecified] Onset: 02-27-2025 Unclassified (1 source) Cough, unspecified; Translations: [Cough, unspecified] Onset: 09-03-2024 Urinary tract infections (2 sources) Acute cystitis; Translations: [Acute cystitis with hematuria] 05-12-2025 Episodic Viral infection (10 sources) Disease caused by 2019-nCoV; Translations: [COVID-19] 08-18-2021 Episodic Past or Other Problems Problem Classification Problem Date Documented Da te Episodic/Chronic Acquired foot deformities (4 sources) Bunion; Translations: [Bunion of unspecified foot] Onset: 05-28-2023 Episodic Other gastrointestinal disorders (1 source) Diarrhea, unspecified; Translations: [Diarrhea, unspecified] Onset: 08-22-2024 Episodic Other non-traumatic joint disorders (1 source) Shoulder joint pain; Translations: [Pain in left shoulder] Onset: 01-30-2025 01-30-2025 Episodic Other upper respiratory infections (20 sources) Sore throat symptom; Translations: [Acute pharyngitis, unspecified] Onset: 09-03-2024 06-07-2022 Episodic Spondylosis; intervertebral disc disorders; other back problems (7 sources) Cervical radiculopathy; Translations: [Radiculopathy, cervical region] Onset: 02-02-2025 01-29-2025 Episodic Results Test Name Value Interpretation Reference Range Facility Relevant diagnostic tests/la boratory data Narrativeon 06-04-2025 CT SCAN HX of the Spine cervica l on 01/29/2025 at [email or web address] [email or web address] [facility] [employer] Work Phone: Fall risk assessment yes [facility] Work Phone: MEDS REVIEW Documentation of current medications (procedure) [facility] Work Phone: MEDS REVIEWD Medications reviewed without changes [facility] Work Phone: XRAY HX of the Spine cervica l on 01/30/2025 at [facility] Work Phone: Urine Cultureon 05-16-2025 [facility] Presumptive E. coli [place] Count >100,000 Presumptive E. coli: REACTION Ampicillin Islt KAYKAY <=2 Ampicillin+Sulbac Islt KAYKAY <=2 S Cefepime Islt KAYKAY <=0.12 S cefTRIAXone Islt KAYKAY <=0.25 S Ciprofloxacin Islt KAYKAY <=0.06 S B-Lactamase Extended Susc Islt NEG Gentamicin Islt KAYKAY <=1 S levoFLOXacin Islt KAYKAY <=0.12 S Meropenem Islt KAYKAY <=0.25 S Nitrofurantoin Islt KAYKAY <=16 S Pip+Tazo Islt KAYKAY <=4 S TMP SMX Islt KAYKAY <=20 S Normal [facility] Comment on above: Performed By: #### M [id number] #### [facility] [address] [place], [address] Laboratory - Chemistry and C hemistry - challengeOrdered By: Eleni Villalobos on 05-12-2025 Bilirubin Ql (U) Negative [facility] Glucose Ql (U) Negative [facility] Ketones Ql (U) Trace (5) [facility] pH (U) 6.5 [pH] [facility] Specific gravity (U) [Rel density] 1.015 [facility] Urobilinogen (U) [Mass/Vol] 4 mg/dL [facility] - Hematology and Cell countsOrdered By: Eleni Villalobos on 05-12-2025 Hemoglobin Ql (U) Hemolyzed [facility] - Specimen inform ationOrdered By: Eleni Villalobos on 05-12-2025 Clarity (U) Cloudy [facility] Color (U) RED [facility] - UrinalysisOrder ed By: Eleni Villalobos on 05-12-2025 Nitrite Ql (U) Positive [facility] Protein Ql (U) Positive [facility] No Panel InformationOrdered By: Eleni Villalobos on 05-12-2025 Urine Leukocytes Positive [facility] Urine Non-Hemolyzed Blood Large [facility] Urgent Care Visit Reporton 0 05-12-2025 Urgent Care Visit Report [facility] [address], [address] [place] [address] OFFICE VISIT Date of Service: 05/12/25 MR#: [id number] Acct: [id number] Name: ANGELICA GRULLON Rep #: [id number] : 1975 Provider: ALKA Villalobos Age/Sex: 49/F Location: [facility] Status: Signed Intake Vital Signs 01/29/25 09:34 05/12/25 08:11 Height 5 ft 6 in 5 ft 6 in Weight: 142 lb BMI 22.8 BP 118/80 Blood Pressure Location Lt brachial Position Sitting Pulse 59 L Pulse Source Monitor Temp 97.9 F Temp Source Oral Pulse Oximetry (%) 98 Oxygen Delivery Method room air Intake Visit Reasons: CONCERN FOR UTI Chief Complaint: UTI Accompanied by: Self Allergies No Known Allergies Allergy (Verified 05/12/25 08:39) Medications ???Medication ???Instructions ???Recorded ???Confirmed ???Type fluoxetine 20 mg tablet 20 mg PO DAILY 12/23/18 05/12/25 H istory ascorbic acid (vitamin C) 1,000 mg 1 g PO DAILY 01/29/25 05/12/25 H istory tablet (C-1000) estradiol 0.1 mg/24 hr semiweekly 1 patch transdermal Q3D 01/29/25 05/12/25 History transdermal patch magnesium 200 mg tablet 200 mg PO DAILY 01/29/25 05/12/25 History naproxen 500 mg tablet 500 mg PO BID PRN pain #14 tabs 05/12/25 Rx progesterone micronized 100 mg 100 mg PO QHS 01/29/25 05/12/25 Hi story capsule vitamin E 268 mg (400 unit) capsule 268 mg PO DAILY 01/29/25 History zinc acetate 25 mg (zinc) capsule 25 mg PO DAILY 01/29/25 05/12/25 History (Wilzin) zolmitriptan 5 mg tablet 5 mg PO PRN PRN migraine headache 01/29/25 05/12/25 History nitrofurantoin 100 mg PO Q12H 5 days #10 caps 05/12/25 Rx monohydrate/macrocrysta ls 100 mg capsule (Macrobid) Nurse's Note: Right side pain, urinating blood. Started last night. Pain is pulsating/throbbing pain. [facility] Medical History Normal hysteroscopy Laryngitis Acute pharyngitis Wears glasses Cancer Alcohol use History of steroid therapy Kidney stone Back pain Migraine headache Gastric reflux Non-smoker Anxiety History of melanoma Surgical History History of bunionectomy Hx of cystoscopy History of lithotripsy Family History Father Cancer skin Sister Melanoma Alcoholism Social History Smoking Status: Never smoker alcohol intake: current details: rarely substance use type: does not use what type of physical activity do you participate in: running frequency: 5-6 times per week HPI HPI Chief Complaint: UTI Details: ANGELICA GRULLON, is a 49 F who presents to the office today for ? UTI -sx started last night- LMP 05/03 through 05/09/2025 -sx right lower pelvic pain comes and goes. Woke up at 0100 went to the restroom and it was pure blood- does have hx kidney stone in the 20's- + for slight nausea- no vomiting/abd/back pain/fever or chills -tried so far ibuprofen last night -in office UA + for UTI ROS Const Constitutional: Positive for other (ROS negative x6 except what was placed in HPI) Exam Const General: cooperative and no acute distress Orientation: alert and oriented x3 Resp Effort Inspection: normal respiratory effort, able to speak in complete sentences and symmetric chest movement Auscultation: Bilateral: Clear to Auscultation, Left: Clear to Auscultation and Right: Clear to Auscultation Cardio Rate: regular rate Rhythm: regular rhythm Heart Sounds: S1 normal and S2 normal GI Auscultation: normal bowel sounds Palpation: soft and no hepatosplenomegaly Other: -No CVA tenderness -no back pain or abd pain with palpation -slight tenderness with palpation over pelvic area right side Neuro General: patient alert, patient awake and patient oriented x3 Extrem General: normal to inspection and full ROM Psych Appearance: grossly normal Mental Status: mental status grossly normal Attitude: cooperative Thought Process: normal Thought Content: normal Judgment: judgment good Results POC Urinalysis Dip (Clinic) Office Urine Color RED Last Edit by Carly Anaya MA on 05/12/25 08:28 Office Urine Clarity Cloudy Last Edit by Carly Anaya MA on 05/12/25 08:28 Office Urine Glucose Negative Last Edit by Carly Anaya MA on 05/12/25 08:28 Office Urine Ketones Trace (5) Last Edit by Carly Anaya MA on 05/12/25 08:28 Off Ur Spec [place] 1.015 Last Edit by Carly Anaya MA on 05/12/25 08:28 Office Urine pH 6.5 Last Edit by Carly Anaya MA on 05/12/25 08:28 Office Urine Bilirubin Negative Last Edit by Carly Anaya MA on 05/12/25 08:28 Office U (more content not included)... Normal [facility] Urine cultureOrdered By: Abner Villalobos on 05-12-2025 Bacteria identified Cx Nom (U) Presumptive E. coli Abnormal [facility] Magnetic resonance imaging r eportOrdered By: Nereyda Cole on 02-23-2025 Study report [facility] Imaging Services [address] [place], [place] [id number] Breast Bilateral W/O and W MR#: [id number] Acct: [id number] Name: ANGELICA GRULLON Rep #: [id number] : 1975 F 49 From: Lyndsay Cole MD PCP: Dr. Shirley Guan, DO Status: REG CLI Study:Breast Bilateral W/O and W Date of Exam : 02/22/25 Exam# [id number] Ordering Dr: Power Fraga MD PROCEDURE: BREAST BILATERAL W/O AND W 02/22/2025 REASON FOR EXAM: 49-year-old female presents for MRI due to dense breast tissue. TECHNIQUE: BREAST BILATERAL W/O AND W CONTRAST: 12 mL of Clariscan IV COMPARISON: Mammogram 03/13/2024 and 10/10/2020. Ultrasound 03/15/2024 FINDINGS: TISSUE DENSITY: The breasts are heterogeneously dense, which may obscure small masses. Background Parenchymal Enhancement: Mild RIGHT Breast: No suspicious mass or non-mass enhancement. LEFT Breast: No suspicious mass or non-mass enhancement. Other Findings: No suspicious axillary or internal mammary lymph nodes. Visualized portions of the thoracic and abdominal viscera are unremarkable. MRI/Breast Bilateral W/O and W IMPRESSION: OVERALL FINAL ASSESSMENT BI-RADS 1: NEGATIVE. RECOMMEND ANNUAL MAMMOGRAPHIC SCREENING. RECOMMENDATION: Routine annual follow-up in 1 Year Reading Location: [facility] CC: Dr. Jo-Ann Fraga MD; Dr. Shirley Guan DO ~ Inclusion Paraeducator: Signed [facility] Breast Bilateral W/O and Won 02-22-2025 Breast Bilateral W/O and W [facility] Imaging Services [address] [place], [place] [address] Breast Bilateral W/O and W MR#: [id number] Acct: [id number] Name: ANGELICA GRULLON Rep #: [id number] : 1975 F 49 From: Nereyda Cole MD PCP: Dr. Shirley Guan DO Status: REG CLI Study: Breast Bilateral W/O and W Date of Exam: 02/22 Exam# [id number] Ordering Dr: Jo-Ann Fraga MD PROCEDURE: BREAST BILATERAL W/O AND W 02/22/2025 REASON FOR EXAM: 49-year-old female presents for MRI due to dense breast tissue. TECHNIQUE: BREAST BILATERAL W/O AND W CONTRAST: 12 mL of Clariscan IV COMPARISON: Mammogram 03/13/2024 and 10/10/2020. Ultrasound 03/15/2024 FINDINGS: TISSUE DENSITY: The breasts are heterogeneously dense, which may obscure small masses. Background Parenchymal Enhancement: Mild RIGHT Breast: No suspicious mass or non-mass enhancement. LEFT Breast: No suspicious mass or non-mass enhancement. Other Findings: No suspicious axillary or internal mammary lymph nodes. Visualized portions of the thoracic and abdominal viscera are unremarkable. MRI/Breast Bilateral W/O and W IMPRESSION: OVERALL FINAL ASSESSMENT BI-RADS 1: NEGATIVE. RECOMMEND ANNUAL MAMMOGRAPHIC SCREENING. RECOMMENDATION: Routine annual follow-up in 1 Year Reading Location: [facility] CC: Dr. Jo-Ann Fraga MD; Dr. Shirley Guan DO Inclusion Paraeducator: Signed Normal [facility] Emergency Department Summary on 01-29-2025 Emergency Department Summary [facility] Department [address] [place] [address] Emergency Department Summary 01/29/25 MR#: [id number] Acct: [id number] Name: ANGELICA GRULLON Rep #: [id number] : 1975 49 From: Orlando Leiva DO PCP: Dr. Shirley Guan DO Status:DEP ER Location: ED HPI History of Present Illness Chief Complaint: Other, Pain/Inj Informant: patient Narrative Narrative: 49-year-old female presenting to the emergency room with the chief complaint of neck pain. Patient states that last night before bed she had some discomfort on the left side of her neck going from the musculature down towards the shoulder blade. She used a heating pad and had a gentle massage. She states that she woke during the night with significantly more pain and pain with movement of the head particularly looking left and flexion extension. She states she can look to the right and its uncomfortable but not as bad is going to the left. She notes the pain radiates down into her left arm. She denies any recent trauma but does note that she fell off a ladder in August. She noted that after that fall she was not able to reach behind her back like she could on her right arm. She had bunion surgery and decided to rest the arm for 2 months. She notes that she still does not have the range of motion but has not had pain in her neck like this. She denies any fevers chest pain abdominal pain dyspnea. She denies any throat pain. She states she has a history of migraines but does not have a headache with this. She denies any rash. [facility] Medical History Normal hysteroscopy Laryngitis Acute pharyngitis Wears glasses Cancer Alcohol use History of steroid therapy Kidney stone Back pain Migraine headache Gastric reflux Non-smoker Anxiety History of melanoma Home Medications ???Medication ???Instructions ???Recorded ???Last Taken ???Type fluoxetine 20 mg tablet 20 mg PO DAILY 12/23/18 01/29/25 H istory ascorbic acid (vitamin C) 1,000 mg 1 g PO DAILY 01/29/25 01/28/25 H istory tablet (C-1000) diazepam 5 mg tablet 5 mg PO Q8 PRN Muscle Spasm #15 Unknown Rx tabs estradiol 0.1 mg/24 hr semiweekly 1 patch transdermal Q3D 01/29/25 01/28/25 History transdermal patch magnesium 200 mg tablet 200 mg PO DAILY 01/29/25 01/28/25 History naproxen 500 mg tablet 500 mg PO BID PRN pain #14 tabs Unknown Rx oxycodone-acetaminophen 5 mg-325 1 tab PO Q6H PRN PRN Pain 3 days 0 01/29/25 Unknown Rx mg tablet #12 TABLETS progesterone micronized 100 mg 100 mg PO QHS 01/29/25 Unknown His tory capsule vitamin E 268 mg (400 unit) capsule 268 mg PO DAILY 01/29/25 History zinc acetate 25 mg (zinc) capsule 25 mg PO DAILY 01/29/25 01/28/25 History (Wilzin) zolmitriptan 5 mg tablet 5 mg PO PRN PRN migraine headache 01/29/25 01/22/25 History Allergy/AdvReac Type Severity Reaction Status Date / Time No Known Allergies Allergy Verified 09/03/24 10:00 Family History Father Cancer skin Sister Melanoma Alcoholism Surgical History History of bunionectomy Hx of cystoscopy History of lithotripsy Social History Smoking Status: Never smoker alcohol intake: current details: rarely substance use type: does not use what type of physical activity do you participate in: running frequency: 5-6 times per week ROS ROS ED Constitutional Constitutional ED: Denies chills or weight loss Eyes Eyes: Denies change in vision or diplopia ENT ENT ED: Denies ear pain, rhinorrhea or sore throat Cardiovascular Cardiovascular: Denies chest pain, orthopnea, palpitations or racing heartbeat Respiratory/Chest Respiratory/Chest: Denies cough, dyspnea or orthopnea Gastrointestinal Gastrointestinal: Denies abdominal pain, diarrhea, nausea or vomiting Genitourinary Genitourinary ED: Denies dysuria, hematuria or urinary frequency Musculoskeletal Musculoskeletal: Reports back pain and neck pain; Denies arthralgias or myalgias Integumentary Denies abscess or rash Neurologic Neurologic: Reports paresthesias LUE; Denies headache(s) or weakness Psychiatric Psychiatric: Denies anxiety, depression, suicidal ideation or suicidal thoughts Endocrine Endocrinology: Denies polydipsia, polyphagia or polyuria Allergic/Immunologic Allergic/Immunologic ED: Denies mouth swelling, tongue swelling or urticaria EXAM Physical Exam Const Vital Signs: 01/29/25 09:34 01/29/25 09:54 01/29/25 11:18 Temperature 96.4 F L 96.4 F L Temperature Source Temporal Pulse Rate 62 56 L Respiratory Rate 18 18 (more content not included)... Normal [facility] Spine Cervical without Contr ason 01-29-2025 Spine Cervical without Contras [facility] [address] [place], [place] [address] Spine Cervical without Contras MR#: [id number] Acct: [id number] Name: ANGELICA GRULLON Rep #: [id number] : 1975 F 49 From: Conchita Jeffries MD PCP: Dr. Shirley Guan DO Status: REG ER Study: Spine Cervical without Contras Date of Exam: 0 01/29/25 Exam# [id number] Ordering Dr: Orlando Leiva DO PROCEDURE: SPINE CERVICAL WITHOUT CONTRAS 01/29/2025 REASON FOR EXAM: NECK PAIN TECHNIQUE: Contiguous axial scans of 1.25 mm slice thicknesses without intravenous contrast. Sagittal and coronal reconstruction images were also obtained. One or more dose reduction techniques were used (e.g., Automated exposure control, adjustment of the mA and/or kV according to patient size, use of iterative reconstruction technique). RADIATION DOSE SUMMARY: DLP: 309.61 mGycm COMPARISON: No relevant prior. FINDINGS: Vertebra: Vertebral bodies normal in height. Mild spondylosis is seen anteriorly, multilevel. Mild posterolateral spurring of the C2 vertebra on the left, axial image 52. C1-C2: Atlantoaxial articulation is maintained. Alignment: No scoliosis. No spondylolisthesis. Discs: Normal in height. Facets: A fracture is noted involving the left lateral mass at C2-C3. Fracture appears to be slightly comminuted. Signs of healing are noted at the fracture site with bony overgrowth. Foramens: Marked narrowing of the C2-3 neural foramen on the left apparently causing nerve root compression. Multilevel facet arthropathy is noted elsewhere bilaterally, mild. Soft tissues: Prevertebral soft tissues are normal. CT/Spine Cervical without Contras IMPRESSION: Old fracture of the left lateral mass at C2-C3 with bony overgrowth and severe narrowing of the C2-3 foramen. Mild multilevel facet arthropathy and spondylosis. Reading Location: [place] [address] CC: Dr. Orlando Leiva, DO; Dr. Shirley Guan DO Inclusion Paraeducator: Signed Normal [facility] Testosterone, Total / Freeon 01-27-2025 TESTOSTER,FREE 0.36 ng/dL Normal 0.10-0.85 [facility] Comment on above: Order Comment: N Performed By: #### L 500.4100, L3300.1750, L100.0100, L3100.5310, L801.2600, L500.4050 ####[facility] [address] [place], [place], [phone]) TESTOSTER,TOTAL 14 ng/dL Normal 4-50 [facility] Comment on above: Order Comment: N Performed By: #### L 500.4100, L3300.1750, L100.0100, L3100.5310, L801.2600, L500.4050 ####[facility] [address] [place], [place], [phone] TESTOSTERONE,%F 2.57 Normal 0.50-2.80 [facility] Comment on above: Order Comment: N Result Comment: Perf ormed at: - [address] [id number] Improvement Advisor: Amish Mckee PhD, Phone: [phone] Performed at: - [facility] [id number] Improvement Advisor: Tammy Parikh MD, Phone: [phone] Performed By: #### L 500.4100, L3300.1750, L100.0100, L3100.5310, L801.2600, L500.4050 ####[facility] [address] [place], [place], [id number] PROGESTERONE 4317on 01-25-20 25 PROGESTERONE 0.2 ng/mL Normal . [facility] Comment on above: Order Comment: N Result Comment: Foll icular phase 0.1 - 0.9 Luteal phase 1.8 - 23.9 Ovulation phase 0.1 - 12.0 First trimester 11.0 - 44.3 Second trimester 25.4 - 83.3 Third trimester 58.7 - 214.0 Postmenopausal 0.0 - 0.1 Performed at: [facility] [id number] Improvement Advisor: Amish Mckee PhD, Phone: [phone] Performed By: #### L 500.4100, L3300.1750, L100.0100, L3100.5310, L801.2600, L500.4050 ####[facility] [address] [place], [place], [phone] Absolute lymphocyte counton 01-23-2025 Lymphocytes Auto (Unsp spec) [#/Vol] 1.93 10*3/uL 0.83-4.51 [facility] Absolute neutrophil counton 01-23-2025 Neutrophils (Bld) [#/Vol] 1.7 10*3/uL Low 2.0-7.7 [facility] Anion gap in Serum or Plasma on 01-23-2025 Anion gap [Moles/Vol] 9 mmol/L 5-15 [facility] Automated lymphocyte count a s percentage of total leukocyteson 01-23-2025 Lymphocytes/100 WBC Auto (Unsp spec) 46.3 % High 19-41 [facility] BUN/creatinine ratioon 01-23 Urea nitrogen/Creatinine [Mass ratio] 24.8 mg/mg High 10-20 [facility] Basophil percentageon 2024 Basophils/100 WBC (Bld) 0.7 % 0-1 [facility] Bilirubin, totalon Bilirubin [Mass/Vol] 0.36 mg/dL 0.00-1.30 [facility] CBC W/Diff, Automatedon 05-2 -2024 Absolute Lymph 1.93 X10 3/uL Normal 0.83-4.51 [facility] Comment on above: Performed By: #### L 500.4100, L3300.1750, L100.0100, L3100.5310, L801.2600, L500.4050 #### [facility] [address] [place], [address] Absolute Neut 1.7 X10 3/uL Low 2.0-7.7 [facility] Comment on above: Performed By: #### L 500.4100, L3300.1750, L100.0100, L3100.5310, L801.2600, L500.4050 #### [facility] [address] [place], [address] Basophils/100 WBC (Bld) 0.7 % Normal 0-1 [facility] Comment on above: Performed By: #### L 500.4100, L3300.1750, L100.0100, L3100.5310, L801.2600, L500.4050 #### [facility] [address] [place], [address] Eosinophils/100 WBC (Bld) 3.6 % Normal 0-5 [facility] Comment on above: Performed By: #### L 500.4100, L3300.1750, L100.0100, L3100.5310, L801.2600, L500.4050 #### [facility] [address] [place], [address] Erythrocyte distribution width (RBC) [Ratio] 12.6 % Normal 11.6-14.6 [facility] Comment on above: Performed By: #### L 500.4100, L3300.1750, L100.0100, L3100.5310, L801.2600, L500.4050 #### [facility] [address] [place], [address] Hematocrit (Bld) [Volume fraction] 38.8 % Normal 37-47 [facility] Comment on above: Performed By: #### L 500.4100, L3300.1750, L100.0100, L3100.5310, L801.2600, L500.4050 #### [facility] [address] [place], [address] Hemoglobin (Bld) [Mass/Vol] 12.8 g/dL Normal 12.0-15.0 [facility] Comment on above: Performed By: #### L 500.4100, L3300.1750, L100.0100, L3100.5310, L801.2600, L500.4050 #### [facility] [address] [facility] [place], [address] IG% 0.200 Normal 0.0-0.9 [facility] Comment on above: Result Comment: IG% - Immature Granulocytes (promyelocytes, myelocytes and metamyelocytes) > 1% indicates that a LEFT SHIFT is Present. Performed By: #### L 500.4100, L3300.1750, L100.0100, L3100.5310, L801.2600, L500.4050 #### [facility] [address] [place], [address] Lymphocytes/100 WBC (Bld) 46.3 % High 19-41 [facility] Comment on above: Performed By: #### L 500.4100, L3300.1750, L100.0100, L3100.5310, L801.2600, L500.4050 #### [facility] [address] [place], [address] MCH (RBC) [Entitic mass] 31.4 pg Normal 27.0-32.0 [facility] Comment on above: Performed By: #### L 500.4100, L3300.1750, L100.0100, L3100.5310, L801.2600, L500.4050 #### [facility] [address] [place], [address] MCHC (RBC) [Mass/Vol] 33.0 g/dL Normal 32-36 [facility] Comment on above: Performed By: #### L 500.4100, L3300.1750, L100.0100, L3100.5310, L801.2600, L500.4050 #### [facility] [address] [place], [address] MCV (RBC) [Entitic vol] 95.3 fL Normal 81-99 [facility] Comment on above: Performed By: #### L 500.4100, L3300.1750, L100.0100, L3100.5310, L801.2600, L500.4050 #### [facility] [address] [place], [address] Monocytes/100 WBC (Bld) 8.9 % Normal 0-10 [facility] Comment on above: Performed By: #### L 500.4100, L3300.1750, L100.0100, L3100.5310, L801.2600, L500.4050 #### [facility] [address] [place], [address] Neutrophils/100 WBC (Bld) 40.3 % Low 47-70 [facility] Comment on above: Performed By: #### L 500.4100, L3300.1750, L100.0100, L3100.5310, L801.2600, L500.4050 #### [facility] [address] [place], [address] Nucleated RBC (Bld) [#/Vol] 0 10*3/uL Normal 0-5 [facility] Comment on above: Performed By: #### L 500.4100, L3300.1750, L100.0100, L3100.5310, L801.2600, L500.4050 #### [facility] [address] [place], [address] Platelet mean volume (Bld) [Entitic vol] 10.7 fL Normal 6.2-12.0 [facility] Comment on above: Performed By: #### L 500.4100, L3300.1750, L100.0100, L3100.5310, L801.2600, L500.4050 #### [facility] [address] [place], [address] Platelets (Bld) [#/Vol] 301 10*3/uL Normal 150-450 [facility] Comment on above: Performed By: #### L 500.4100, L3300.1750, L100.0100, L3100.5310, L801.2600, L500.4050 #### [facility] [address] [place], [address] RBC (Bld) [#/Vol] 4.07 10*6/uL Low 4.2-5.4 [facility] Comment on above: Performed By: #### L 500.4100, L3300.1750, L100.0100, L3100.5310, L801.2600, L500.4050 #### [facility] [address] [place], [address] RDW SD 44.5 fl High 35.1-43.9 [facility] Comment on above: Performed By: #### L 500.4100, L3300.1750, L100.0100, L3100.5310, L801.2600, L500.4050 #### [facility] [address] [place], [address] WBC (Bld) [#/Vol] 4.2 10*3/uL Low 4.4-11.0 [facility] Comment on above: Performed By: #### L 500.4100, L3300.1750, L100.0100, L3100.5310, L801.2600, L500.4050 #### [facility] [address] [place], [address] Calculated very low density lipoprotein (VLDL) cholesterol measurementon 01-23-2025 Calculated very low density lipoprotein (VLDL) cholesterol measurement 11 mg/dL 5-40 [facility] Carbon dioxide, total [Moles /volume] in Central venous bloodon 01-23-2025 CO2 [Moles/Vol] 28.5 mmol/L 21.0-32.0 [facility] Chloride assayon 01-23-2025 Chloride [Moles/Vol] 103 mmol/L 98-108 [facility] Comprehensive Metabolic Prof ilon 01-23-2025 Albumin [Mass/Vol] 4.0 g/dL Normal 3.5-5.0 [facility] Comment on above: Performed By: #### L 500.4100, L3300.1750, L100.0100, L3100.5310, L801.2600, L500.4050 #### [facility] [address] [place], [address] Albumin/Globulin [Mass ratio] 1.3 {ratio} Normal 0.9-2.4 [facility] Comment on above: Performed By: #### L 500.4100, L3300.1750, L100.0100, L3100.5310, L801.2600, L500.4050 #### [facility] [address] [place], [address] ALK PHOS 77 U/L Normal 35-104 [facility] Comment on above: Performed By: #### L 500.4100, L3300.1750, L100.0100, L3100.5310, L801.2600, L500.4050 #### [facility] [address] [place], [address] ALT [Catalytic activity/Vol] 15 U/L Normal <=34 [facility] Comment on above: Performed By: #### L 500.4100, L3300.1750, L100.0100, L3100.5310, L801.2600, L500.4050 #### [facility] [address] [place], [address] AST [Catalytic activity/Vol] 25 U/L Normal <=31 [facility] Comment on above: Performed By: #### L 500.4100, L3300.1750, L100.0100, L3100.5310, L801.2600, L500.4050 #### [facility] [address] [place], [address] Bilirubin [Mass/Vol] 0.36 mg/dL Normal 0.00-1.30 [facility] Comment on above: Performed By: #### L 500.4100, L3300.1750, L100.0100, L3100.5310, L801.2600, L500.4050 #### [facility] [address] [place], [address] BUN/CRE 24.8 RATIO High 10-20 [facility] Comment on above: Performed By: #### L 500.4100, L3300.1750, L100.0100, L3100.5310, L801.2600, L500.4050 #### [facility] [address] [place], [address] Calcium [Mass/Vol] 9.5 mg/dL Normal 7.6-11.0 [facility] Comment on above: Performed By: #### L 500.4100, L3300.1750, L100.0100, L3100.5310, L801.2600, L500.4050 #### [facility] [address] [place], [address] Chloride [Moles/Vol] 103 mmol/L Normal 98-108 [facility] Comment on above: Performed By: #### L 500.4100, L3300.1750, L100.0100, L3100.5310, L801.2600, L500.4050 #### [facility] [address] [place], [address] CO2 [Moles/Vol] 28.5 mmol/L Normal 21.0-32.0 [facility] Comment on above: Performed By: #### L 500.4100, L3300.1750, L100.0100, L3100.5310, L801.2600, L500.4050 #### [facility] [address] [place], [address] Creatinine [Mass/Vol] 0.77 mg/dL Normal 0.70-1.20 [facility] Comment on above: Performed By: #### L 500.4100, L3300.1750, L100.0100, L3100.5310, L801.2600, L500.4050 #### [facility] [address] [place], [address] GAP 9 Normal 5-15 [facility] Comment on above: Performed By: #### L 500.4100, L3300.1750, L100.0100, L3100.5310, L801.2600, L500.4050 #### [facility] [address] [place], [address] GFR/1.73 sq M.predicted among non-blacks MDRD (S/P/Bld) [Vol rate/Area] 95 mL/min/{1.73_m2} Normal >60 [facility] Comment on above: Result Comment: mL/m in/1.73m2 CKD-EPI Creatinine Equation (2020) Performed By: #### L 500.4100, L3300.1750, L100.0100, L3100.5310, L801.2600, L500.4050 #### [facility] [address] [place], [address] Globulin (S) [Mass/Vol] 3.1 g/dL Normal 2.2-4.2 [facility] Comment on above: Performed By: #### L 500.4100, L3300.1750, L100.0100, L3100.5310, L801.2600, L500.4050 #### [facility] [address] [place], [address] Glucose [Mass/Vol] 85 mg/dL Normal 70-99 [facility] Comment on above: Performed By: #### L 500.4100, L3300.1750, L100.0100, L3100.5310, L801.2600, L500.4050 #### [facility] [address] [place], [address] Potassium [Moles/Vol] 4.3 mmol/L Normal 3.3-5.1 [facility] Comment on above: Performed By: #### L 500.4100, L3300.1750, L100.0100, L3100.5310, L801.2600, L500.4050 #### [facility] [address] [place], [address] Sodium [Moles/Vol] 140 mmol/L Normal 133-145 [facility] Comment on above: Performed By: #### L 500.4100, L3300.1750, L100.0100, L3100.5310, L801.2600, L500.4050 #### [facility] [address] [place], [address] T PROT 7.0 g/dL Normal 5.9-8.4 [facility] Comment on above: Performed By: #### L 500.4100, L3300.1750, L100.0100, L3100.5310, L801.2600, L500.4050 #### [facility] [address] [place], [address] Urea nitrogen [Mass/Vol] 19 mg/dL Normal 4-19 [facility] Comment on above: Performed By: #### L 500.4100, L3300.1750, L100.0100, L3100.5310, L801.2600, L500.4050 #### [facility] [address] [place], [address] Eosinophil percentageon 05-2 Eosinophils/100 WBC (Bld) 3.6 % 0-5 [facility] Erythrocyte distribution wid th ratioon 01-23-2025 Erythrocyte distribution width (RBC) [Ratio] 12.6 % 11.6-14.6 [facility] Erythrocyte distribution wid th standard deviationon 01-23-2025 Erythrocyte distribution width (RBC) [Ratio] 44.5 fl High 35.1-43.9 [facility] Estradiolon 01-23-2025 ESTRADIOL < 5.0 Normal [facility] Comment on above: Result Comment: FEMA LES ADULT FEMALE: Premenopausal: 15-350 pg/mL(E2 levels vary widely through the menstrual cycle) Postmenopausal: <10 pg/mL ADI STAGES MEAN AGE REFERENCE RANGES Stage I(>14 days and prepubertal) 7.1 years Undetectable-20 pg/mLL Stage II 10.5 years Undetectable-24 pg/mL Stage III 11.6 years Undetectable-60 pg/mL Stage IV 12.3 years 15-85 pg/mL Stage V 14.5 years 15-350 pg/mL Puberty onset (transition from Adi stage I to Adi stage II) occurs for girls at a median age of 10.5 (/- 2) years. There is evidence that it may occur up to 1 year earlier in obese girls and in girls. Progression through Adi stages is variable. Adi stage V (adult) should be reached by age 18. Performed By: #### L 500.4100, L3300.1750, L100.0100, L3100.5310, L801.2600, L500.4050 #### [facility] [address] [place], [address] Free testosterone percentage on 01-23-2025 Testosterone Free/Testosterone.tota l [Mass fraction] 2.57 % 0.50-2.80 [facility] Comment on above: Performed at: CB - [facility] [address] [place], [place] [id number] Director: Amish Mckee PhD, Phone: [phone] at: - [facility] [id number] Director: Tammy Parikh MD, Phone: [phone] Glomerular filtration rate ( GFR) estimation/1.73 sq m using serum, plasma, or whole bon 01-23-2025 GFR/1.73 sq M.predicted among non-blacks MDRD (S/P/Bld) [Vol rate/Area] 95 mL/min/{1.73_m2} >60 [facility] Comment on above: mL/min/1.73m2 CKD-EP I Creatinine Equation (2020) Hematocrit Auto (Bld) [Volum e fraction]on 01-23-2025 Hematocrit (Bld) [Volume fraction] 38.8 % 37-47 [facility] Hemoglobin measurementon Hemoglobin (Bld) [Mass/Vol] 12.8 g/dL 12.0-15.0 [facility] Immature granulocytes/100 WB C Auto (Bld)on 01-23-2025 Immature granulocytes/100 WBC (Bld) 0.200 % 0.0-0.9 [facility] Comment on above: IG% - Immature Granu locytes (promyelocytes, myelocytes and metamyelocytes) > 1% indicates that a LEFT SHIFT is Present. LDL calc ser/plason 01-24-20 25 Cholesterol in LDL [Mass/Vol] 120 mg/dL [facility] Comment on above: Riyhzchjfx=030-037 m g/dL & Higher Asnh=048 mg/dL or greater Laboratory - Chemistry and C hemistry - challengeon 01-23-2025 AST [Catalytic activity/Vol] 25 U/L <32 [facility] Lipid Profileon 01-23-2025 CHOL:HDL 2.72 Normal [facility] Comment on above: Performed By: #### L 500.4100, L3300.1750, L100.0100, L3100.5310, L801.2600, L500.4050 #### [facility] [address] [place], [address] Cholesterol [Mass/Vol] 206 mg/dL High <=200 [facility] Comment on above: Result Comment: Chol esterol level, Desirable <200 mg/dL Borderline high cholesterol 200-239 mg/dL High cholesterol >=240 mg/dL Recommendations of the NCEP Adult Treatment Panel for the following risk-cutoff thresholds for the [place] population. Performed By: #### L 500.4100, L3300.1750, L100.0100, L3100.5310, L801.2600, L500.4050 #### [facility] [address] [place], [address] Cholesterol in HDL [Mass/Vol] 76 mg/dL Normal [facility] Comment on above: Result Comment: Cynthia onal Cholesterol Education Program (NCEP) guidelines: <40 mg/dL: Low HDL-cholesterol (major risk factor for CHD) >= 60 mg/dL: High HDL-cholesterol (negative risk factor for CHD) HDL-cholesterol is affected by a number of factors, e.g. smoking, exercise, hormones, sex and age. Performed By: #### L 500.4100, L3300.1750, L100.0100, L3100.5310, L801.2600, L500.4050 #### [facility] [address] [place], [address] Cholesterol in LDL [Mass/Vol] 120 mg/dL Normal [facility] Comment on above: Result Comment: Bord hfffro=634-416 mg/dL Higher Mifw=768 mg/dL or greater Performed By: #### L 500.4100, L3300.1750, L100.0100, L3100.5310, L801.2600, L500.4050 #### [facility] [address] [place], [address] Cholesterol in VLDL [Mass/Vol] 11 mg/dL Normal 5-40 [facility] Comment on above: Performed By: #### L 500.4100, L3300.1750, L100.0100, L3100.5310, L801.2600, L500.4050 #### [facility] [address] [place], [address] Triglyceride [Mass/Vol] 53 mg/dL Normal [facility] Comment on above: Result Comment: The drugs N-Acetylcysteine and Metamizole may falsely depress this assay. Normal range: <150 mg/dL Borderline High: 150-199 mg/dL High: 200-499 mg/dL Very High: >500 mg/dL Performed By: #### L 500.4100, L3300.1750, L100.0100, L3100.5310, L801.2600, L500.4050 #### [facility] [address] [place], [address] MCV (mean corpuscular volume ) determinationon 01-23-2025 MCV (RBC) [Entitic vol] 95.3 fL 81-99 [facility] Mean corpuscular hemoglobin (MCH) determinationon 01-23-2025 MCH (RBC) [Entitic mass] 31.4 pg 27.0-32.0 [facility] Mean corpuscular hemoglobin concentration (MCHC) determinationon 01-23-2025 MCHC (RBC) [Mass/Vol] 33.0 g/dL 32-36 [facility] Mean platelet volume determi nationon 01-23-2025 Platelet mean volume (Bld) [Entitic vol] 10.7 fL 6.2-12.0 [facility] Monocyte percentageon 2024 Monocytes/100 WBC (Bld) 8.9 % 0-10 [facility] Neutrophil percentageon 05- Neutrophils/100 WBC (Bld) 40.3 % Low 47-70 [facility] Nucleated red blood cell per centageon 01-23-2025 Nucleated RBC/100 WBC (Bld) [Ratio] 0 % 0-5 [facility] Platelet counton 01-23-2025 Platelets (Bld) [#/Vol] 301 10*3/uL 150-450 [facility] Potassium measurement (mass/ volume)on 01-23-2025 Potassium (Unsp spec) [Mass/Vol] 4.3 mmol/L 3.3-5.1 [facility] RBC Auto (Bld) [#/Vol]on RBC (Bld) [#/Vol] 4.07 10*6/uL Low 4.2-5.4 [facility] Screening total cholesterol/ high density lipoprotein (HDL) cholesterol ratioon 01-23-2025 Cholesterol.total/Chol esterol in HDL [Mass ratio] 2.72 {ratio} [facility] Serum creatinine measurement (mass/volume)on 01-23-2025 Creatinine [Mass/Vol] 0.77 mg/dL 0.70-1.20 [facility] Serum globulin measurementon 01-23-2025 Globulin (S) [Mass/Vol] 3.1 g/dL 2.2-4.2 [facility] Serum glucose measurement (m ass/volume)on 01-23-2025 Glucose [Mass/Vol] 85 mg/dL 70-99 [facility] Serum or plasma alanine guevara otransferase (ALT) measurementon 01-23-2025 ALT [Catalytic activity/Vol] 15 U/L <35 [facility] Serum or plasma albumin ej urement (mass/volume)on 01-23-2025 Albumin [Mass/Vol] 4.0 g/dL 3.5-5.0 [facility] Serum or plasma albumin/glob ulin mass ratioon 01-23-2025 Albumin/Globulin [Mass ratio] 1.3 {ratio} 0.9-2.4 [facility] Serum or plasma alkaline jason sphatase measurementon 01-23-2025 ALP [Catalytic activity/Vol] 77 U/L 35-104 [facility] Serum or plasma calcium ej urement (mass/volume)on 01-23-2025 Calcium [Mass/Vol] 9.5 mg/dL 7.6-11.0 [facility] Serum or plasma cholesterol in HDL measurement (mass/volume)on 01-23-2025 Cholesterol in HDL [Mass/Vol] 76 mg/dL >40 [facility] Comment on above: National Cholesterol Education Program (NCEP) guidelines:<40 mg/dL: Low HDL-cholesterol (major risk factor for CHD)>= 60 mg/dL: High HDL-cholesterol (negative risk factor for CHD)HDL-cholesterol is affected by a number of factors, e.g. smoking, exercise, hormones, sex and age. Serum or plasma cholesterol measurement (mass/volume)on 01-23-2025 Cholesterol [Mass/Vol] 206 mg/dL High <201 [facility] Comment on above: Cholesterol level, D esirable <200 mg/dLBorderline high cholesterol 200-239 mg/dLHigh cholesterol >=240 mg/dLRecommendations of the NCEP Adult Treatment Panel for the following risk-cutoff thresholds for the [place] population. Serum or plasma estradiol me asurement after follitropin dose (mass/volume)on 01-23-2025 E2 post dose follitropin [Mass/Vol] < 5.0 pg/mL [facility] Comment on above: FEMALES ADULT FEMALE : Premenopausal: 15-350 pg/mL(E2 levels vary widely through the menstrual cycle) Postmenopausal: <10 pg/mL ADI STAGES MEAN AGE REFERENCE RANGES Stage I(>14 days and prepubertal) 7.1 years Undetectable-20 pg/mLL Stage II 10.5 years Undetectable-24 pg/mL Stage III 11.6 years Undetectable-60 pg/mL Stage IV 12.3 years 15-85 pg/mL Stage V 14.5 years 15-350 pg/mL Puberty onset (transition from Adi stage I to Adi stage II) occurs for girls at a median age of 10.5 (/- 2) years. There is evidence that it may occur up to 1 year earlier in obese girls and in girls.Progression through Adi stages is variable. Adi stage V (adult) should be reached by age 18. Serum or plasma free testost erone measurement (mass/volume)on 01-23-2025 Testosterone Free [Mass/Vol] 0.36 ng/dL 0.10-0.85 [facility] Serum or plasma urea nitroge n measurement (mass/volume)on 01-23-2025 Urea nitrogen [Mass/Vol] 19 mg/dL 4-19 [facility] Sodium levelon 01-23-2025 Sodium [Moles/Vol] 140 mmol/L 133-145 [facility] Testosterone, totalon 2024 Testosterone [Mass/Vol] 14 ng/dL 4-50 [facility] Total proteinon 01-23-2025 Protein [Mass/Vol] 7.0 g/dL 5.9-8.4 [facility] Triglycerides measurementon 01-23-2025 Triglyceride [Mass/Vol] 53 mg/dL <199 [facility] Comment on above: The drugs N-Acetylcy steine and Metamizole may falsely depress this assay. Normal range: <150 mg/dLBorderline High: 150-199 mg/dLHigh: 200-499 mg/dLVery High: >500 mg/dL White blood cell (WBC) count on 01-23-2025 WBC (Bld) [#/Vol] 4.2 10*3/uL Low 4.4-11.0 [facility] Urgent Care Visit Reporton 0 09-03-2024 Urgent Care Visit Report [facility] [address] , [address] [place] [address] OFFICE VISIT Date of Service: 09/03/24 MR#: [id number] Acct: [id number] Name: ANGELICA GRULLON Rep #: [id number] : 1975 Provider: ALKA bragg Age/Sex: 49/F Location: [facility] Status: Signed Intake Vital Signs 05/29/23 08:32 09/03/24 09:59 Height 5 ft 6 in BP 102/70 Blood Pressure Location Lt brachial Position Sitting Respiration 12 Pulse 79 Pulse Source NIBP Temp 98.5 F Temp Source Oral Pulse Oximetry (%) 98 Oxygen Delivery Method room air Intake Visit Reasons: COVID/FLU SYMPTOMS Chief Complaint: cough, congestion Inspector Assembly Required: No Is patient in pain?: No Allergies No Known Allergies Allergy (Verified 09/03/24 10:00) Medications ???Medication ???Instructions ???Recorded ???Confirmed ???Type fluoxetine 20 mg tablet 20 mg PO DAILY 12/23/18 09/03/24 History azithromycin 250 mg tablet See Rx Instructions PO .COMPLEX #6 09/03/24 09/03/24 Rx (Zithromax Z-Roger) tabs Is last menstrual period known: No Post menopausal: No Patient : No Have you fallen in the past year?: No PFSH Medical History (Updated 09/03/24 @ 10:36 by Stuart Warren 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, 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) Normal hysteroscopy Laryngitis Acute pharyngitis Wears glasses Cancer Alcohol use History of steroid therapy Kidney stone Back pain Migraine headache Gastric reflux Non-smoker Anxiety History of melanoma Surgical History Hx of cystoscopy History of lithotripsy Family History (Updated 08/17/24 @ 07:42 by Micaela Crane) Father Cancer skin Sister Melanoma Alcoholism Social History (Updated 08/17/24 @ 07:43 by Micaela Crane) Smoking Status: Never smoker alcohol intake: current details: rarely substance use type: does not use what type of physical activity do you participate in: running frequency: 5-6 times per week HPI HPI Chief Complaint: cough, congestion Details: ANGELICA GRULLON, is a 49 F who presents to the office today for cough, congestion, and fever. Patient requested Covid/flu test and she proceeded with brandie Covid/flu test. Both Flu and COVID-19 testing was negative. Her symptoms have been ongoing for on week. Initially she started with a sore throat. Her symptoms are worsening. Today her temperature was 100. She states sick contacts with son and was recently at a wedding is "a lot of people having something". ROS Const Constitutional: Positive for fever(s); No body ache, chills, fatigue, headache(s) or change in appetite Eyes Eyes: No blurry vision, change in vision, double vision, irritation, discharge, vision loss, dry eyes, bulging eyes, floaters, visual disturbances, eye pain, Light sensitivity, spots in vision, tunnel vision or other ENT ENT: Positive for nasal discharge; No ear or mastoid pain, ear discharge, ear pressure, tinnitus, dizziness/vertigo, nosebleed/epistaxis, nasal congestion, nose pain, sinus pressure, sinus pain, post nasal drip, headache(s), facial pain, dental pain, difficulty swallowing, bad breath, hoarseness, lip swelling, mouth lesions, mouth pain, neck pain, sore throat, tongue swelling or throat swelling Resp Respiratory: Positive for cough and chest congestion; No change in phlegm color, hemoptysis, pain on inspiration, shortness of breath, pain with cough, stridor or wheezing Cardio Cardiology: No chest pain at rest, chest pain with exertion, shortness of breath, dyspnea on exertion or lightheadedness Gastro GI: No abdominal pain, change in bowel habits or difficulty swallowing Genitourinary-Female: No burning urination or urinary frequency Musc Musculoskeletal: No joint pain or neck pain Skin Skin: No rash Neuro Neurology: No headache(s) or visual disturbances Psych Psychiatric: No change in appetite Endo Endocrine: No fatigue Aller/Imm Allergy/Immunologic: No lip swelling, throat swelling, tongue swelling or wheezing Exam Const General: cooperative, healthy appearing, comfortable and no acute distress Orientation: alert, awake and oriented x3 HENMT Head: normal to inspection and normocephalic Ears: hearing grossly normal bilaterally, external ears normal and TM's normal bilaterally Nose: external nose normal, nares normal and no nasal discharge Face and sinus: normal facial exam and sinuses nontender Mouth: oral mucosae normal, lip normal, tongue normal, oropharynx normal and moist mucous membranes Throat: posterior oropharynx normal, tonsils normal, uvula midline and no postnasal drainage Eyes General: appearance normal, both eyes and all related structures Neck Neck: normal visual inspection and no lymphadenopathy Carotids: normal carotid upstroke Lymphatic: no lymphadenopathy noted C (more content not included)... Normal [facility] L5500.0550on 08-01-2024 BEEF <0.10 Normal Class 0 [facility] Comment on above: Performed By: #### L 501.9520, L500.4050, L501.6710, L100.0100, L101.9900, L5500.0550 ####[facility] [address] [place], [place], [id number] CHOCOLATE <0.10 Normal Class 0 [facility] Comment on above: Performed By: #### L 501.9520, L500.4050, L501.6710, L100.0100, L101.9900, L5500.0550 ####[facility] [address] [place] [place], [address] CODFISH <0.10 Normal Class 0 [facility] Comment on above: Performed By: #### L 501.9520, L500.4050, L501.6710, L100.0100, L101.9900, L5500.0550 ####[facility] [address] [place], [place], [id number] COMMENT Comment Normal . [facility] Comment on above: Result Comment: Bart cantor of Specific IgE Class Description of Class ----- < 0.10 0 Negative 0.10 - 0.31 0/I Equivocal/Low 0.32 - 0.55 I Low 0.56 - 1.40 II Moderate 1.41 - 3.90 III High 3.91 - 19.00 IV Very High 19.01 - 100.00 V Very High >100.00 Very High Performed By: #### L 501.9520, L500.4050, L501.6710, L100.0100, L101.9900, L5500.0550 ####[facility] [address] [place], [address] CORN <0.10 Normal Class 0 [facility] Comment on above: Performed By: #### L 501.9520, L500.4050, L501.6710, L100.0100, L101.9900, L5500.0550 ####[facility] [address] [place], [place], [id number] EGG, WHOLE <0.10 Normal Class 0 [facility] Comment on above: Result Comment: Perf ormed at: [facility] [address] [id number] Improvement Advisor: Tammy Parikh MD, Phone: [phone] Performed By: #### L 501.9520, L500.4050, L501.6710, L100.0100, L101.9900, L5500.0550 ####[facility] [address] [place], [address] MILK (COW) <0.10 Normal Class 0 [facility] Comment on above: Performed By: #### L 501.9520, L500.4050, L501.6710, L100.0100, L101.9900, L5500.0550 ####[facility] [address] [place], [address] MUSSELS <0.10 Normal Class 0 [facility] Comment on above: Performed By: #### L 501.9520, L500.4050, L501.6710, L100.0100, L101.9900, L5500.0550 ####[facility] [address] [place], [address] PEANUT <0.10 Normal Class 0 [facility] Comment on above: Performed By: #### L 501.9520, L500.4050, L501.6710, L100.0100, L101.9900, L5500.0550 ####[facility] [address] [place], [address] PORK <0.10 Normal Class 0 [facility] Comment on above: Performed By: #### L 501.9520, L500.4050, L501.6710, L100.0100, L101.9900, L5500.0550 ####[facility] [address] [place], [address] SALMON <0.10 Normal Class 0 [facility] Comment on above: Performed By: #### L 501.9520, L500.4050, L501.6710, L100.0100, L101.9900, L5500.0550 ####[facility] [address] [place], [address] SHRIMP <0.10 Normal Class 0 [facility] Comment on above: Performed By: #### L 501.9520, L500.4050, L501.6710, L100.0100, L101.9900, L5500.0550 ####[facility] [address] [place], [address] SOYBEAN <0.10 Normal Class 0 [facility] Comment on above: Performed By: #### L 501.9520, L500.4050, L501.6710, L100.0100, L101.9900, L5500.0550 ####[facility] [address] [place], [address] TUNA <0.10 Normal Class 0 [facility] Comment on above: Performed By: #### L 501.9520, L500.4050, L501.6710, L100.0100, L101.9900, L5500.0550 ####[facility] [address] [place], [address] WHEAT <0.10 Normal Class 0 [facility] Comment on above: Performed By: #### L 501.9520, L500.4050, L501.6710, L100.0100, L101.9900, L5500.0550 ####[facility] [address] [place], [address] CBC W/Diff, Automatedon 11-2 Absolute Lymph 2.38 X10 3/uL Normal 0.83-4.51 [facility] Comment on above: Performed By: #### L 501.9520, L500.4050, L501.6710, L100.0100, L101.9900, L5500.0550 ####[facility] [address] [place], [address] Absolute Neut 4.5 X10 3/uL Normal 2.0-7.7 [facility] Comment on above: Performed By: #### L 501.9520, L500.4050, L501.6710, L100.0100, L101.9900, L5500.0550 ####[facility] [address] [place], [address] Basophils/100 WBC (Bld) 0.5 % Normal 0-1 [facility] Comment on above: Performed By: #### L 501.9520, L500.4050, L501.6710, L100.0100, L101.9900, L5500.0550 ####[facility] [address] [place], [address] Eosinophils/100 WBC (Bld) 1.3 % Normal 0-5 [facility] Comment on above: Performed By: #### L 501.9520, L500.4050, L501.6710, L100.0100, L101.9900, L5500.0550 ####[facility] [address] [place], [address] Erythrocyte distribution width (RBC) [Ratio] 12.7 % Normal 11.6-14.6 [facility] Comment on above: Performed By: #### L 501.9520, L500.4050, L501.6710, L100.0100, L101.9900, L5500.0550 ####[facility] [address] [place], [address] Hematocrit (Bld) [Volume fraction] 39.4 % Normal 37-47 [facility] Comment on above: Performed By: #### L 501.9520, L500.4050, L501.6710, L100.0100, L101.9900, L5500.0550 ####[facility] [address] [place], [address] Hemoglobin (Bld) [Mass/Vol] 13.2 g/dL Normal 12.0-15.0 [facility] Comment on above: Performed By: #### L 501.9520, L500.4050, L501.6710, L100.0100, L101.9900, L5500.0550 ####[facility] [address] [place], [address] IG% 0.300 Normal 0.0-0.9 [facility] Comment on above: Result Comment: IG% - Immature Granulocytes (promyelocytes, myelocytes and metamyelocytes) > 1% indicates that a LEFT SHIFT is Present. Performed By: #### L 501.9520, L500.4050, L501.6710, L100.0100, L101.9900, L5500.0550 ####[facility] [address] [place], [address] Lymphocytes/100 WBC (Bld) 31.3 % Normal 19-41 [facility] Comment on above: Performed By: #### L 501.9520, L500.4050, L501.6710, L100.0100, L101.9900, L5500.0550 ####[facility] [address] [place], [address] MCH (RBC) [Entitic mass] 31.8 pg Normal 27.0-32.0 [facility] Comment on above: Performed By: #### L 501.9520, L500.4050, L501.6710, L100.0100, L101.9900, L5500.0550 ####[facility] [address] [place], [address] MCHC (RBC) [Mass/Vol] 33.5 g/dL Normal 32-36 [facility] Comment on above: Performed By: #### L 501.9520, L500.4050, L501.6710, L100.0100, L101.9900, L5500.0550 ####[facility] [address] [place], [address] MCV (RBC) [Entitic vol] 94.9 fL Normal 81-99 [facility] Comment on above: Performed By: #### L 501.9520, L500.4050, L501.6710, L100.0100, L101.9900, L5500.0550 ####[facility] [address] [place], [address] Monocytes/100 WBC (Bld) 7.5 % Normal 0-10 [facility] Comment on above: Performed By: #### L 501.9520, L500.4050, L501.6710, L100.0100, L101.9900, L5500.0550 ####[facility] [address] [place], [address] Neutrophils/100 WBC (Bld) 59.1 % Normal 47-70 [facility] Comment on above: Performed By: #### L 501.9520, L500.4050, L501.6710, L100.0100, L101.9900, L5500.0550 ####[facility] [address] [place], [address] Nucleated RBC (Bld) [#/Vol] 0 10*3/uL Normal 0-5 [facility] Comment on above: Performed By: #### L 501.9520, L500.4050, L501.6710, L100.0100, L101.9900, L5500.0550 ####[facility] [address] [place], [address] Platelet mean volume (Bld) [Entitic vol] 11.5 fL Normal 6.2-12.0 [facility] Comment on above: Performed By: #### L 501.9520, L500.4050, L501.6710, L100.0100, L101.9900, L5500.0550 ####[facility] [address] [place], [address] Platelets (Bld) [#/Vol] 354 10*3/uL Normal 150-450 [facility] Comment on above: Performed By: #### L 501.9520, L500.4050, L501.6710, L100.0100, L101.9900, L5500.0550 ####[facility] [address] [place], [address] RBC (Bld) [#/Vol] 4.15 10*6/uL Low 4.2-5.4 [facility] Comment on above: Performed By: #### L 501.9520, L500.4050, L501.6710, L100.0100, L101.9900, L5500.0550 ####[facility] [address] [place], [address] RDW SD 44.5 fl High 35.1-43.9 [facility] Comment on above: Performed By: #### L 501.9520, L500.4050, L501.6710, L100.0100, L101.9900, L5500.0550 ####[facility] [address] [place], [address] WBC (Bld) [#/Vol] 7.6 10*3/uL Normal 4.4-11.0 [facility] Comment on above: Performed By: #### L 501.9520, L500.4050, L501.6710, L100.0100, L101.9900, L5500.0550 ####[facility] [address] [place], [address] CRPon 07-26-2024 C-REACTIVE PROT < 2.90 Normal 0.0-3.0 [facility] Comment on above: Result Comment: C-Re active Protein (CRP) provides useful information for the diagnosis, therapy and monitoring of inflammatory processes and associated diseases. For the evaluation of Relative Risk for Cardiovascular Disease, a High Sensitivity CRP (HSCRP) should be ordered. Performed By: #### L 501.9520, L500.4050, L501.6710, L100.0100, L101.9900, L5500.0550 ####[facility] [address] [place], [address] Comprehensive Metabolic Prof ilon 07-26-2024 Albumin [Mass/Vol] 3.6 g/dL Normal 3.2-5.0 [facility] Comment on above: Performed By: #### L 501.9520, L500.4050, L501.6710, L100.0100, L101.9900, L5500.0550 ####[facility] [address] [place], [address] Albumin/Globulin [Mass ratio] 0.9 {ratio} Normal 0.9-2.4 [facility] Comment on above: Performed By: #### L 501.9520, L500.4050, L501.6710, L100.0100, L101.9900, L5500.0550 ####[facility] [address] [place], [address] ALK P 72 U/L Normal 45-117 [facility] Comment on above: Performed By: #### L 501.9520, L500.4050, L501.6710, L100.0100, L101.9900, L5500.0550 ####[facility] [address] [place], [address] ALT [Catalytic activity/Vol] 22 U/L Normal 13-56 [facility] Comment on above: Performed By: #### L 501.9520, L500.4050, L501.6710, L100.0100, L101.9900, L5500.0550 ####[facility] [address] [place], [address] AST [Catalytic activity/Vol] 22 U/L Normal 15-37 [facility] Comment on above: Performed By: #### L 501.9520, L500.4050, L501.6710, L100.0100, L101.9900, L5500.0550 ####[facility] [address] [place], [address] Bilirubin [Mass/Vol] 0.30 mg/dL Normal 0.20-1.00 [facility] Comment on above: Result Comment: For patients on eltrombopag therapy, use of Dimension [place] TBIL is not recommended. Performed By: #### L 501.9520, L500.4050, L501.6710, L100.0100, L101.9900, L5500.0550 ####[facility] [address] [place], [address] BUN/CRE 21.4 RATIO High 10-20 [facility] Comment on above: Performed By: #### L 501.9520, L500.4050, L501.6710, L100.0100, L101.9900, L5500.0550 ####[facility] [address] [place], [address] CA,Total 8.6 mg/dL Normal 8.5-10.1 [facility] Comment on above: Performed By: #### L 501.9520, L500.4050, L501.6710, L100.0100, L101.9900, L5500.0550 ####[facility] [address] [place], [address] Chloride [Moles/Vol] 101 mmol/L Normal 98-107 [facility] Comment on above: Performed By: #### L 501.9520, L500.4050, L501.6710, L100.0100, L101.9900, L5500.0550 ####[facility] [address] [place], [address] CO2 [Moles/Vol] 28.0 mmol/L Normal 21.0-32.0 [facility] Comment on above: Performed By: #### L 501.9520, L500.4050, L501.6710, L100.0100, L101.9900, L5500.0550 ####[facility] [address] [place], [address] Creatinine [Mass/Vol] 0.75 mg/dL Normal 0.55-1.02 [facility] Comment on above: Result Comment: The validity of the calculated GFR GFRAA in patients over 70 years has not been determined. Clinical correlation is essential. Performed By: #### L 501.9520, L500.4050, L501.6710, L100.0100, L101.9900, L5500.0550 ####[facility] [address] [place], [address] EST GFR - AA 105 mL/min Normal >60 [facility] Comment on above: Result Comment: Afri can [place] GFR Calc Performed By: #### L 501.9520, L500.4050, L501.6710, L100.0100, L101.9900, L5500.0550 ####[facility] [address] [place], [address] GAP 7 Normal 5-15 [facility] Comment on above: Performed By: #### L 501.9520, L500.4050, L501.6710, L100.0100, L101.9900, L5500.0550 ####[facility] [address] [place], [address] GFR/1.73 sq M.predicted among non-blacks MDRD (S/P/Bld) [Vol rate/Area] 87 mL/min/{1.73_m2} Normal >60 [facility] Comment on above: Result Comment: Non- GFR Calc Performed By: #### L 501.9520, L500.4050, L501.6710, L100.0100, L101.9900, L5500.0550 ####[facility] [address] [place], [address] Globulin (S) [Mass/Vol] 3.8 g/dL Normal 2.2-4.2 [facility] Comment on above: Performed By: #### L 501.9520, L500.4050, L501.6710, L100.0100, L101.9900, L5500.0550 ####[facility] [address] [place], [address] Glucose [Mass/Vol] 83 mg/dL Normal 74-106 [facility] Comment on above: Performed By: #### L 501.9520, L500.4050, L501.6710, L100.0100, L101.9900, [id number] ####[facility] [address] [place], [address] Potassium [Moles/Vol] 3.7 mmol/L Normal 3.5-5.1 [facility] Comment on above: Performed By: #### L [id number], [id number], L501.6710, L100.0100, L101.9900, [id number] ####[facility] [address] [place], [address] Sodium [Moles/Vol] 136 mmol/L Normal 136-145 [facility] Comment on above: Performed By: #### L [id number], [id number], L501.6710, L100.0100, L101.9900, [id number] ####[facility] [address] [place], [address] T PROT 7.4 g/dL Normal 6.4-8.2 [facility] Comment on above: Performed By: #### L [id number], [id number], L501.6710, L100.0100, L101.9900, [id number] ####[facility] [address] [place], [address] Urea nitrogen [Mass/Vol] 16 mg/dL Normal 7-18 [facility] Comment on above: Performed By: #### L [id number], [id number], L501.6710, L100.0100, L101.9900, [id number] ####[facility] [address] [place], [address] Erythrocyte Sed Rateon 07-26 SED RATE 3 mm/hr Normal 0-30 [facility] Comment on above: Performed By: #### L [id number], [id number], L501.6710, L100.0100, L101.9900, [id number] ####[facility] [address] [place], [address] Thyroid Stim Hormone (TSH)on 07-26-2024 TSH 0.972 uIU/mL Normal 0.358-3.740 [facility] Comment on above: Performed By: #### L [id number], [id number], L501.6710, L100.0100, L101.9900, [id number] ####[facility] [address] [place], [address] Throat specimen bacteria jena ntification by cultureOrdered By: Clyde Shell on 09-07-2023 Bacteria identified Cx Nom (Throat) streptococcus isolated. [facility] - Microbiology an d Antimicrobial susceptibilityon 05-29-2023 S. pyogenes Ag IA Ql (Unsp spec) Negative [facility] No Panel Informationon 11-18 IMPRESSION: No acute abnormality. Bilateral hallux valgus with associated arthritic changes of the first metatarsophalangeal joints right greater than left. Bilateral tailor's bunions. OLOGY EXAM: XR FOOT LEFT 3 VIEWS, XR FOOT RIGHT 3 VIEWS, 11/18/2022 10:27 AM COMPARISON: December 18, 2020 CLINICAL HISTORY: AP/lat/oblique weight bearing;, left foot pain M79.671:Bilateral foot pain M79.672:Bilateral foot pain FINDINGS: 3 images of the right foot weightbearing: Hallux valgus with first metatarsophalangeal arthritis. A tailors bunion is present. No fracture or dislocation. Normal calcaneal inclination angle. 3 images of the left foot weightbearing: Stable hallux valgus. No fracture or dislocation. Calcaneal inclination angle appears preserved. Tailors bunion. RADIOLOGY Spencer Krishnamurthy MD - 11/18/2022 EXAM: XR FOOT LEFT 3 VIEWS, XR FOOT RIGHT 3 VIEWS, 11/18/2022 10:27 AM COMPARISON: December 18, 2020 CLINICAL HISTORY: AP/lat/oblique weight bearing;, left foot pain M79.671:Bilateral foot pain M79.672:Bilateral foot pain FINDINGS: 3 images of the right foot weightbearing: Hallux valgus with first metatarsophalangeal arthritis. A tailors bunion is present. No fracture or dislocation. Normal calcaneal inclination angle. 3 images of the left foot weightbearing: Stable hallux valgus. No fracture or dislocation. Calcaneal inclination angle appears preserved. Tailors bunion. IMPRESSION IMPRESSION: No acute abnormality. Bilateral hallux valgus with associated arthritic changes of the first metatarsophalangeal joints right greater than left. Bilateral tailor's bunions. [facility] No Panel InformationOrdered By: Spencer Krishnamurthy on 11-18-2022 [facility] Work Phone: XR FOOT LEFT 3 VIEWSon 11-18 XR FOOT LEFT 3 VIEWS EXAM: XR FOOT LEFT 3 VIEWS, XR FOOT RIGHT 3 VIEWS, 11/18/2022 10:27 AM COMPARISON: December 18, 2020 CLINICAL HISTORY: AP/lat/oblique weight bearing;, left foot pain M79.671:Bilateral foot pain M79.672:Bilateral foot pain FINDINGS: 3 images of the right foot weightbearing: Hallux valgus with first metatarsophalangeal arthritis. A tailors bunion is present. No fracture or dislocation. Normal calcaneal inclination angle. 3 images of the left foot weightbearing: Stable hallux valgus. No fracture or dislocation. Calcaneal inclination angle appears preserved. Tailors bunion. IMPRESSION: No acute abnormality. Bilateral hallux valgus with associated arthritic changes of the first metatarsophalangeal joints right greater than left. Bilateral tailor's bunions. Normal [facility] XR FOOT RIGHT 3 VIEWSon 10-29 XR FOOT RIGHT 3 VIEWS EXAM: XR FOOT LEFT 3 VIEWS, XR FOOT RIGHT 3 VIEWS, 11/18/2022 10:27 AM COMPARISON: December 18, 2020 CLINICAL HISTORY: AP/lat/oblique weight bearing;, left foot pain M79.671:Bilateral foot pain M79.672:Bilateral foot pain FINDINGS: 3 images of the right foot weightbearing: Hallux valgus with first metatarsophalangeal arthritis. A tailors bunion is present. No fracture or dislocation. Normal calcaneal inclination angle. 3 images of the left foot weightbearing: Stable hallux valgus. No fracture or dislocation. Calcaneal inclination angle appears preserved. Tailors bunion. IMPRESSION: No acute abnormality. Bilateral hallux valgus with associated arthritic changes of the first metatarsophalangeal joints right greater than left. Bilateral tailor's bunions. Normal [facility] XR Foot - left 3 [facility] Study observation (narrative) [facility] XR Foot - right 3 [facility] Radiology Study observation (narrative) [facility] - Microbiology an d Antimicrobial susceptibilityon 06-07-2022 S. pyogenes Ag IA Ql (Unsp spec) Negative [facility] SARS-CoV-2 (COVID-19) RNA KAREEN+probe Ql (Unsp spec) Not detected [facility] No Panel Informationon 06-07 Influenza Types A,B Rapid (Clinic) Not detected [facility] - Microbiology an d Antimicrobial susceptibilityon 03-26-2022 SARS-CoV-2 (COVID-19) RNA KAREEN+probe Ql (Unsp spec) Not detected Not Detect [facility] Work Phone: Comment on above: Normal Reference Ran ge: Not DetectedMethod:(RT-PCR) real-time reverse transcriptase PCRLuminex SRINI Instrument*The Food and Drug Administration (FDA) has issued an Emergency Use Authorization (EAU) for the SRINI SARS-CoV-2 Assay for the rapid detection of the virus that causes COVID-19. This test has been validated, but the FDAs independent review of this validation is pending.*Negative results do not preclude infection and should not be used as the sole basis for treatment or patient management. Optimum specimen types and timing for peak viral levels during infections caused by SARS-CoV-2 have not been determined. Collection of multiple specimens from the same patient may be necessary to detect the virus. The possibility of a false negative result should be considered if the patient has clinical presentation or has had recent exposure. Basophil percentageon 2021 Cholesterol [Mass/Vol] 204 mg/dL <200 [facility] Work Phone: Comment on above: <200 mg/dL Desirable 200-240 mg/dL Borderline >240 mg/dL High Risk Glucose [Mass/Vol] 79 mg/dL 74-106 [facility] Work Phone: Triglyceride [Mass/Vol] 60 mg/dL <199 [facility] Work Phone: Comment on above: The drugs N-Acetylcy steine and Metamizole may falsely depress this assay.Serum Triglycerides Reference Interval Normal <150 mg/dL Borderline high 150 - 199 mg/dL High 200 - 499 mg/dL Very High > or = 500 mg/dL Serum or plasma cholesterol in HDL measurement (mass/volume)on 01-06-2022 Cholesterol in HDL [Mass/Vol] 84 mg/dL >40 [facility] Work Phone: Comment on above: The drugs N-Acetylcy steine and Metamizole may falsely depress this assay. Reference Range HDL <40 mg/dL Low HDL Cholesterol HDL >or= 60 mg/dL High HDL Cholesterol Serum or plasma cholesterol in VLDL measurement (mass/volume)on 01-06-2022 Cholesterol in VLDL [Mass/Vol] 12 mg/dL 5-40 [facility] Work Phone: Serum or plasma low density lipoprotein (LDL) cholesterol measurement (mass/volume)on 01-06-2022 Cholesterol in LDL [Mass/Vol] 108 mg/dL 0-130 [facility] Work Phone: Vital Signs Date Time Vital Sign Value Performing Clinician Facility 06-04-2025 08:28-0400 Body height 168 cm Andriy Pearson MD Work Phone: [facility] 06-04-2025 08:28-0400 Body height 167.64 cm Andriy Pearson MD Work Phone: [facility] 06-04-2025 08:28-0400 Body mass index (BMI) [Ratio] 22.19 kg/m2 Andriy Pearson MD Work Phone: [facility] 06-04-2025 08:28-0400 Body weight 62 kg Andriy Pearson MD Work Phone: [facility] 06-04-2025 08:28-0400 Body weight 62.14 kg Andriy Pearson MD Work Phone: [facility] 06-04-2025 08:28-0400 BP SITE #1 Andriy Pearson MD Work Phone: [facility] 06-04-2025 08:28-0400 Diastolic blood pressure 83 mm[Hg] Andriy Pearson MD Work Phone: [facility] 06-04-2025 08:28-0400 Heart rate 56 /min Andriy Pearson MD Work Phone: [facility] 06-04-2025 08:28-0400 HGHTCHNVIS Andriy Pearson MD Work Phone: [facility] 06-04-2025 08:28-0400 Systolic blood pressure 136 mm[Hg] Andriy Pearson MD Work Phone: [facility] 06-04-2025 08:28-0400 VITALSDONE Andriy Pearson MD Work Phone: [facility] 05-12-2025 08:11-0400 Body height 167.[address] Jo-Ann Fraga MD Work Phone: [facility] 05-12-2025 08:11-0400 Body mass index (BMI) [Ratio] 22.8 kg/m2 Dr. Jo-Ann Fraga MD Work Phone: [facility] 05-12-2025 08:11-0400 Body temperature 97.9 [degF] Dr. Jo-Ann Fraga MD Work Phone: [facility] 05-12-2025 08:11-0400 Body weight 64.[address] Jo-Ann Fraga MD Work Phone: [facility] 05-12-2025 08:11-0400 Diastolic blood pressure 80 mm[Hg] Dr. Jo-Ann Fraga MD Work Phone: [facility] 05-12-2025 08:11-0400 Heart rate 59 /min Dr. Jo-Ann Fraga MD Work Phone: [facility] 05-12-2025 08:11-0400 SaO2% (BldA) [Mass fraction] 98 % Dr. Jo-Ann Fraga MD Work Phone: [facility] 05-12-2025 08:11-0400 Systolic blood pressure 118 mm[Hg] Dr. Jo-Ann Fraga MD Work Phone: [facility] 01-29-2025 11:18-0400 Body temperature 96.4 [degF] Dr. Jo-Ann Fraga MD Work Phone: [facility] 01-29-2025 11:18-0400 Diastolic blood pressure 73 mm[Hg] Dr. Jo-Ann Fraga MD Work Phone: [facility] 01-29-2025 11:18-0400 Heart rate 56 /min Dr. Jo-Ann Fraga MD Work Phone: [facility] 01-29-2025 11:18-0400 Respiratory rate 18 /min Dr. JoA-nn Fraga MD Work Phone: [facility] 01-29-2025 11:18-0400 SaO2% (BldA) [Mass fraction] 100 % Dr. Jo-Ann Fraga MD Work Phone: [facility] 01-29-2025 11:18-0400 Systolic blood pressure 135 mm[Hg] Dr. Jo-Ann Fraga MD Work Phone: [facility] 01-29-2025 09:34-0400 Body height 167.[address] Jo-Ann Fraga MD Work Phone: [facility] 01-29-2025 09:34-0400 Body mass index (BMI) [Ratio] 22.5 kg/m2 Dr. Jo-Ann Fraga MD Work Phone: [facility] 01-29-2025 09:34-0400 Body weight 63.[address] Jo-Ann Fraga MD Work Phone: [facility] 05-29-2023 08:32-0400 Body height 167.[address] Jo-Ann Fraga Work Phone: [facility] 05-29-2023 08:32-0400 Body mass index (BMI) [Ratio] 21.9 kg/m2 Dr. Jo-Ann Fraga Work Phone: [facility] 05-29-2023 08:32-0400 Body temperature 98.5 [degF] Dr. Jo-Ann Fraga Work Phone: [facility] 05-29-2023 08:32-0400 Body weight 61.[address] Jo-Ann Fraga Work Phone: [facility] 05-29-2023 08:32-0400 Diastolic blood pressure 71 mm[Hg] Dr. Jo-Ann Fraga Work Phone: [facility] 05-29-2023 08:32-0400 Systolic blood pressure 110 mm[Hg] Dr. Jo-Ann Fraga Work Phone: [facility] 06-07-2022 10:21-0400 Body temperature 97.6 [degF] Dr. Shirley Guan Work Phone: [facility] 06-07-2022 10:21-0400 Diastolic blood pressure 68 mm[Hg] Dr. Shirley Guan Work Phone: [facility] 06-07-2022 10:21-0400 Heart rate 83 /min Dr. Shirley Guan Work Phone: [facility] 06-07-2022 10:21-0400 Respiratory rate 16 /min Dr. Shirley Guan Work Phone: [facility] 06-07-2022 10:21-0400 SaO2% (BldA) [Mass fraction] 97 % Dr. Shirley Guan Work Phone: [facility] 06-07-2022 10:21-0400 Systolic blood pressure 102 mm[Hg] Dr. Shirley Guan Work Phone: [facility] 11-11-2021 13:42-0400 Body temperature 97.3 [degF] Dr. Shirley Guan Work Phone: [facility] Work Phone: 11-11-2021 13:42-0400 Diastolic blood pressure 82 mm[Hg] Dr. Shirley Guan Work Phone: [facility] Work Phone: 11-11-2021 13:42-0400 Heart rate 78 /min Dr. Shirley Guan Work Phone: [facility] Work Phone: 11-11-2021 13:42-0400 Respiratory rate 15 /min Dr. Shirley Guan Work Phone: [facility] Work Phone: 11-11-2021 13:42-0400 SaO2% (BldA) [Mass fraction] 99 % Dr. Shirley Guan Work Phone: [facility] Work Phone: 11-11-2021 13:42-0400 Systolic blood pressure 130 mm[Hg] Dr. Shirley Guan Work Phone: [facility] Work Phone: 11-11-2021 13:42-0400 Body temperature 97.3 [degF] Dr. Shirley Guan Work Phone: [facility] Work Phone: 11-11-2021 13:42-0400 Diastolic blood pressure 82 mm[Hg] Dr. Shirley Guan Work Phone: [facility] Work Phone: 11-11-2021 13:42-0400 Heart rate 78 /min Dr. Shirley Guan Work Phone: [facility] Work Phone: 11-11-2021 13:42-0400 Respiratory rate 15 /min Dr. Shirley Guan Work Phone: [facility] Work Phone: 11-11-2021 13:42-0400 SaO2% (BldA) [Mass fraction] 99 % Dr. Shirley Guan Work Phone: [facility] Work Phone: 11-11-2021 13:42-0400 Systolic blood pressure 130 mm[Hg] Dr. Shirley Guan Work Phone: [facility] Work Phone: Encounters Encounter Date Encounter Type Care Provider Facility Start: 06-15-2025 ambulatory Andriy Pearson Facili ty:[facility] Start: 06-04-2025 In-person encounter Andriy Pearson MD Work Phone: [facility] Work Phone: Start: 06-04-2025 Visit out of hours Andriy fox MD Work Phone: [facility] Work Phone: Start: 05-31-2025 ambulatory Shirley Malys Facility:[facility] Start: 05-29-2025 ambulatory Self Referred Facility: [facility] Start: 05-12-2025 End: 05-12-2025 Patient encounter procedure Eleni Villalobos 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 Work Phone: Start: 05-12-2025 End: 05-12-[address] Jo-Ann Fraga MD Work Phone: [facility] Start: 05-12-2025 End: 05-12-2025 ambulatory Eleni Alleene Facility:[facility] Start: 02-22-2025 End: 02-22-[address] Jo-Ann Fraga MD Work Phone: [facility] Start: 02-22-2025 End: 02-22-[address] Jo-Ann Fraga MD [facility] Work Phone: Start: 02-22-2025 End: 02-22-2025 ambulatory Shirley Malys Facility:[facility] Start: 01-29-2025 End: 01-29-2025 Emergency department patient visit Dr. Jo-Ann Fraga MD Work Phone: -Emergency Department Work Phone: Start: 01-23-2025 End: 01-23-[address] Jo-Ann Fraga MD Work Phone: [facility] Work Phone: Start: 01-23-2025 End: 01-23-[address] Shirley Guan DO [facility] [place] Work Phone: Start: 01-23-2025 End: 01-23-2025 ambulatory Shirley Guan Facility:[facility] Start: 09-21-2024 ambulatory Jo-Ann Fraga Facility: [facility] Start: 09-03-2024 End: 09-03-2024 ambulatory Jo-Ann Fraga Facility:[facility] Start: 07-26-2024 End: 07-26-2024 ambulatory Shirley Guan Facility:[facility] Start: 09-07-2023 End: 09-07-[address] Jo-Ann Fraga Work Phone: [facility] Work Phone: Start: 09-07-2023 End: 09-07-[address] Jo-Ann Fraga Work Phone: [facility] Specimen Work Phone: Start: 05-29-2023 End: 05-29-[address] Jo-Ann Fraga Work Phone: [facility] Work Phone: Start: 05-28-2023 ambulatory SAID A ATWAY Facility:[facility] Start: 05-25-2023 Telephone encounter Kiley Acu[facility] [place] Comment on above: Surgery Start: 03-04-2023 Telephone encounter [facility] [place] Comment on above: Appointment Start: 11-18-2022 ambulatory SAID A ATWAY Facility:[facility] Start: 11-18-2022 End: 11-18-2022 Office outpatient visit 15 minutes Said A Atway DPM Work Phone: [facility] [place] Comment on above: Bilateral foot pain (Primary Dx); Bunion of great toe Start: 11-18-2022 End: 11-18-2022 Subsequent hospital visit by physician Said A Atway DPM Work Phone: [facility] [place] Comment on above: Arrived Start: 09-21-2022 End: 09-21-[address] Shirley Guan Work Phone: [facility] Work Phone: Start: 09-21-2022 End: 09-21-[address] Shirley Guan Work Phone: [facility] Spec[facility] Start: 09-05-2022 ambulatory CONCHITA ROWLEY [facility] Amb[facility] Start: 09-04-2022 Transcribe Orders Teressa Almanza MA [facility] Comment on above: Chronic pharyngitis (Primary Dx) Start: 06-07-2022 End: 06-07-[address] Shirley Guan Work Phone: [facility] Start: 03-26-2022 End: 03-26-2022 [facility] Start: 01-06-2022 End: 01-06-[address] Shirley Guan Work Phone: [facility] [place] Start: 11-11-2021 End: 11-11-[address] [facility] Start: 10-10-2021 End: 10-10-[address] Shirley Guan Work Phone: [facility]patient [facility] Start: 09-17-[address] Shirley Guan Work Phone: [facility]-Physical Therapy Procedures Date Procedure Procedure Detail Performing Clinician Start: 06-04-2025 Blood pressure withi n normal parameters - no follow-up required Andriy Pearson MD Work Phone: Start: 06-04-2025 BMI documented withi n normal parameters - no follow-up plan is required Andriy Pearson MD Work Phone: Start: 06-04-2025 Current tobacco non- user cad cap copd pv dm Andriy Pearson MD Work Phone: Start: 06-04-2025 Documentation of cur rent medications Andriy Pearson MD Work Phone: Start: 06-04-2025 Pain assessment docu mented as positive - follow-up documented Andriy Pearson MD Work Phone: Start: 05-12-[address] Linsey Fraga MD Work Phone: Start: 02-22-2025 MRI of bilateral eliceo asts with contrast Dr. Jo-Ann Fraga MD Work Phone: Start: 01-29-2025 CT cervical spine wi thout contrast Dr. Jo-Ann Fraga MD Work Phone: Start: 01-23-[address] Jo-Ann Fraga MD Work Phone: Comment on above: Follicular phase 0.1 - 0.9 Luteal phase 1.8 - 23.9 Ovulation phase 0.1 - 12.0 First trimester 11.0 - 44.3 Second trimester 25.4 - 83.3 Third trimester 58.7 - 214.0 Postmenopausal 0.0 - 0.1Performed at: [address] [id number] Director: Amish Mckee PhD, Phone: [phone] Start: 09-07-2023 Bacteria identificat ion test Dr. Jo-Ann Fraga Work Phone: Start: 11-18-2022 End: 11-18-2022 Radex foot complete minimum 3 views Said A Atway DPM Work Phone: Start: 11-11-[address] Mercedes Guan Work Phone: Start: 10-10-2021 Screening mammography Vanessa Guan Work Phone: Bacteria identificat ion test Plan of Treatment Date Care Activity Detail Author Start: 06-04-2025 Mri spinal canal cervical w/o contrast [facility]. Work Phone: Start: 05-29-2025 Registered Recurring Registered Recurring -Physical Therapy Work Phone: Start: 06-02-2023 End: 06-02-2023 Patient encounter procedure [facility] Start: 05-28-2023 End: 05-28-2023 Admission to same day surgery center 05/28/2023 12:30 PM EDT - 05/28/2023 2:15 PM EDT Surgery [facility] Surgery [facility] [address] [facility] [address] [place] [address] Inga Steele DPM [address] [facility] [address] [place] [address] ARTHRODESIS MIDTARSAL OR TARSOMETATARSAL JOINT [facility] Surgery [facility] Comment on above: ARTHRODESIS MIDTARSAL OR TARSOMETATARSAL JOINT Start: 05-28-2023 End: 05-28-2023 Arthrd midtarsl/tarsometatarsal mult/transvrs ARTHRODESIS MIDTARSAL OR TARSOMETATARSAL JOINT Bilateral foot pain Bunion of great toe 05/28/2023 12:30 PM EDT [facility] Start: 05-28-2023 End: 05-28-2023 Corrj hallux valgus w/sesmdc w/1metar medial cnf CORRECTION HALLUX VALGUS W/ ARTHRODESIS Bilateral foot pain Bunion of great toe 05/28/2023 12:30 PM EDT [facility] Start: 05-28-2023 End: 05-28-2023 Excision tumor soft tis foot/toe subq 1.5 cm/> EXCISION LESION SOFT TISSUE FOOT TOE Bilateral foot pain Bunion of great toe 05/28/2023 12:30 PM EDT [facility] Start: 05-28-2023 End: 05-28-2023 Admission to same day surgery center [facility] Comment on above: ARTHRODESIS MIDTARSAL OR TARSOMETATARSAL JOINT Start: 05-28-2023 End: 05-28-2023 Arthrd midtarsl/tarsometatarsal mult/transvrs ARTHRODESIS MIDTARSAL OR TARSOMETATARSAL JOINT Bilateral foot pain Bunion of great toe 05/28/2023 7:30 AM EDT [facility] Start: 05-28-2023 End: 05-28-2023 Corrj hallux valgus w/sesmdc w/1metar medial cnf CORRECTION HALLUX VALGUS W/ ARTHRODESIS Bilateral foot pain Bunion of great toe 05/28/2023 7:30 AM EDT [facility] Start: 05-28-2023 End: 05-28-2023 Excision tumor soft tis foot/toe subq 1.5 cm/> EXCISION LESION SOFT TISSUE FOOT TOE Bilateral foot pain Bunion of great toe 05/28/2023 7:30 AM EDT [facility] Start: 05-28-2023 Subsequent hospital visit by physician GRACE CID Comment on above: Bilateral foot pain Start: 05-26-2023 End: 05-26-2023 ambulatory [facility] Start: 04-30-2023 Influenza vaccination [facility] Start: 12-09-2022 End: 12-09-2022 Patient encounter procedure 12/09/2022 [facility] [address] [place] [address] [facility] [place] Start: 04-30-2022 Influenza vaccination INFLUENZA VACCINE (#1) [facility] Start: 2019 Screening for malignant neoplasm of colon COLORECTAL CANCER SCREENING DISCUSSION [facility] Start: 2014 Lipid panel LIPID SCREENING [facility] Start: 2014 Screening for malignant neoplasm of breast MAMMOGRAM SCREENING DISCUSSION [facility] Start: 1995 Screening for malignant neoplasm of cervix CERVICAL CANCER SCREENING DISCUSSION [facility] Start: 1993 Third diphtheria, tetanus and acellular pertussis (DTaP) vaccination TDAP (ADULT) [facility] Start: 1989 HIV screening HIV SCREENING DISCUSSION [facility] Start: 1974 COVID-19 VACCINE (#1) COVID-19 VACCINE (#1) [facility] Start: 1974 Hepatitis C screening HEPATITIS C VIRUS SCREENING [facility] Start: 1974 [facility] Arthrd midtarsl/tarsometatarsal mult/transvrs ARTHRODESIS MIDTARSAL OR TARSOMETATARSAL JOINT Bilateral foot pain Bunion of great toe [facility] ARTHRODESIS MIDTARSA L OR TARSOMETATARSAL JOINT ARTHRODESIS MIDTARSAL OR TARSOMETATARSAL JOINT Bilateral foot pain Bunion of great toe [facility] Corrj hallux valgus w/sesmdc w/1metar medial cnf CORRECTION HALLUX VALGUS W/ ARTHRODESIS Bilateral foot pain Bunion of great toe [facility] Corrj hallux valgus w/sesmdc w/1metar medial cnf CORRECTION HALLUX VALGUS W/ ARTHRODESIS Bilateral foot pain Bunion of great toe [facility] EXCISION LESION SOFT TISSUE FOOT TOE EXCISION LESION SOFT TISSUE FOOT TOE Bilateral foot pain Bunion of great toe [facility] Excision tumor soft tis foot/toe subq 1.5 cm/> EXCISION LESION SOFT TISSUE FOOT TOE Bilateral foot pain Bunion of great toe [facility] Patient Education Cervical Radic ulopathy ED Neck Spasm, No Trauma [facility] Work Phone: Patient referral [facility] Work Phone: [facility] Payers Date Payer Category Payer Unknown [id number] 2024 Self-pay [id number] 2020 Private Health Insurance [id number] 2020 Private Health Insurance [employer] A ETNA [id number] 2020-Present [address] [place] [address] [id number] 2015 Unknown [id number] 1974 Unknown [id number] 2.16.840.1.691696.3.579.2.5 94 1974 Unknown [id number] 2.16.840.1.048451.3.579.2.5 94 1974 Unknown [id number] 2.16.840.1.987552.3.579.2.5 94 1974 Unknown [id number] 2.16.840.1.782955.3.579.2.5 94 Unknown [id number] 2.16.840.1.136223.3.579.2.4 62 Unknown [id number] 2.16.840.1.564326.3.579.2.4 62 Unknown [id number] 2.16.840.1.505895.3.579.2.4 62 Unknown [id number] 2.16.840.1.882298.3.579.2.4 62 Unknown [id number] 2.16.840.1.764089.3.579.2.4 62 Unknown [id number] 2.16.840.1.093783.3.579.2.4 62 Unknown [id number] 2.16.840.1.023876.3.579.2.4 62 Unknown [id number] 2.16.840.1.933666.3.579.2.4 62 Unknown [id number] 2.16.840.1.946144.3.579.2.4 62 Unknown [id number] 2.16.840.1.334846.3.579.2.4 62 Unknown [id number] 2.16.840.1.188224.3.579.2.4 62 Social History Date Type Detail Facility Start: 11-11-2021 End: 05-29-2023 Tobacco smoking status NHIS Unknown if ever smoked [facility] Start: 12-23-2018 None [facility] Start: 12-23-2018 Spouse/ Signif icant Other [facility] Start: 1975 Sex Assigned At Female [facility] Start: 1975 Sex Assigned At Not on file [facility] Start: 11-18-2022 End: 01-29-2025 Tobacco smoking status NHIS Never smoked tobacco [facility] Start: 11-18-2022 Tobacco use and exposure Smokeless tobacco non-user [facility] Start: 11-18-2022 History of Social function [facility] Start: 11-18-2022 End: 06-04-2025 Tobacco use panel [facility] Functional Status Date Assessment Result Facility 06-04-2025 Functional Status no [facility] Work Phone: 06-04-2025 dependent [facility] Work Phone: Mental Status Date Assessment Result Facility 01-29-2025 Cognitive function Level Of Cons ciousness Awake;Alert;Appropriate;Follow s Commands [facility] Work Phone: Clinical Notes 11-18-2022 to 05-12-2025 Note Date & Type Note Facility 05-12-2025 Evaluation note Diagnosis Onset Date Resolution Acute cystitis with hematuria acute May 12, 2025 8:05am [facility] Work Phone: 1(440) 730-512906-02-2025 Radiology Diagnostic study note [facility] Imaging Services [address] [place], [place] [address] Spine Cervical without Contras MR#: [id number] Acct: [id number] Name: ANGELICA GRULLON Rep #: [id number] : 1975 F 49 From: Renee Jeffries MD PCP: Dr. Shirley Guan, DO Status: REG ER Study:Spine Cervical without Contras Date of Exam: 01/29/25 Exam# [id number] Ordering Dr: Vanessa Leiva DO PROCEDURE: SPINE CERVICAL WITHOUT CONTRAS 01/29/2025 REASON FOR EXAM: NECK PAIN TECHNIQUE: Contiguous axial scans of 1.25 mm slice thicknesses without intravenous contrast. Sagittal and coronal reconstruction images were also obtained. One or more dose reduction techniques were used (e.g., Automated exposure control, adjustment of the mA and/or kV according to patient size, use of iterative reconstruction technique). RADIATION DOSE SUMMARY: DLP: 309.61 mGycm COMPARISON: No relevant prior. FINDINGS: Vertebra: Vertebral bodies normal in height. Mild spondylosis is seen anteriorly, multilevel. Mild posterolateral spurring of the C2 vertebra on the left, axial image 52. C1-C2: Atlantoaxial articulation is maintained. Alignment: No scoliosis. No spondylolisthesis. Discs: Normal in height. Facets: A fracture is noted involving the left lateral mass at C2-C3. Fracture appears to be slightly comminuted. Signs of healing are noted at the fracture site with bony overgrowth. Foramens: Marked narrowing of the C2-3 neural foramen on the left apparently causing nerve root compression. Multilevel facet arthropathy is noted elsewhere bilaterally, mild. Soft tissues: Prevertebral soft tissues are normal. CT/Spine Cervical without Contras IMPRESSION: Old fracture of the left lateral mass at C2-C3 with bony overgrowth and severe narrowing of the C2-3 foramen. Mild multilevel facet arthropathy and spondylosis. Reading Location: [place] [address] CC: Dr. Orlando Leiva DO; Dr. Shirley Guan DO ~ Inclusion Paraeducator: Signed [facility]09-27-2023 Telephone encounter Note* Telephone Encounter - Kiley Acuña - 05/26/2023 11:48 AM EDT I missed transfer call from central scheduling to speak to patient . Pt states that she called a few months back to cancel ( but I was unaware) I told her to give us a call back when she is ready to schedule. I left [phone] for callback. [facility]09-27-2023 Miscellaneous Notes* Telephone Encounter - Kiley Acuña - 05/26/2023 11:48 AM EDT I missed transfer call from central scheduling to speak to patient . Pt states that she called a few months back to cancel ( but I was unaware) I told her to give us a call back when she is ready to schedule. I left [phone] for callback. * Telephone Encounter - Kiley Acuña - 05/25/2023 2:42 PM EDT Noticed [facility] for surgery on 05/28/23 keeps getting cancelled so I left message with patient to lether know that I am cancelling surgery on 05/28/23 and post op appointment on 06/02/23 since the [facility] keeps getting cancelled. I left [phone] for callback to reschedule. * Telephone Encounter - Kiley Acuña - 05/25/2023 9:15 AM EDT I lvmom to reschedule [facility] appointment on 05/26/23 at 10:00am. I left [phone] for callback if thisdoes not work. [facility] Telephone encounter Note* Telephone Encounter - Kiley Acuña - 05/25/2023 2:42 PM EDT Noticed [facility] for surgery on 05/28/23 keeps getting cancelled so I left message with patient to lether know that I am cancelling surgery on 05/28/23 and post op appointment on 06/02/23 since the [employer] keeps getting cancelled. I left [phone] for callback to reschedule. [facility]09-26-2023 Miscellaneous Notes* Telephone Encounter - Kiley Acuña - 05/25/2023 2:42 PM EDT Noticed [facility] for surgery on 05/28/23 keeps getting cancelled so I left message with patient to lether know that I am cancelling surgery on 05/28/23 and post op appointment on 06/02/23 since the [employer] keeps getting cancelled. I left [phone] for callback to reschedule. * Telephone Encounter - Kiley Acuña - 05/25/2023 9:15 AM EDT I lvmom to reschedule [facility] appointment on 05/26/23 at 10:00am. I left [phone] for callback if thisdoes not work. [facility] Telephone encounter Note* Telephone Encounter - Kiley Acuña - 05/25/2023 9:15 AM EDT I lvmom to reschedule [facility] appointment on 05/26/23 at 10:00am. I left [phone] for callback if thisdoes not work. [facility]07-12-2023 Telephone encounter Note* Telephone Encounter - Kiley Acuña - 03/10/2023 9:08 AM EDT I lvmom to schedule pre op appointment with Dr. Steele. I left [phone] for callback. [facility]07-12-2023 Miscellaneous Notes* Telephone Encounter - Kiley Acuña - 03/10/2023 9:08 AM EDT I lvmom to schedule pre op appointment with Dr. Steele. I left [phone] for callback. * Telephone Encounter - Kiley Acuña - 03/04/2023 2:15 PM EDT I lvmom to schedule appointment with Dr. Steele Before surgery to sign consent. I left [phone] for callback. [facility] Tele[facility] encounter Note* Telephone Encounter - Kiley Acuña - 03/04/2023 2:15 PM EDT I lvmom to schedule appointment with Dr. Steele Before surgery to sign consent. I left [phone] for callback. [facility]03-22-2023 History of Present illness Narrative* Inga Steele, DPM - 11/18/2022 10:45 AM EDT Chief Complaint Patient presents with Left Foot - Follow-up Pt presents to FU b/l bunions, pt would like to discuss sx [...] patient the diagnoses and treatment options for herlower extremity pathology. I have explained to her conservative treatment options. All of her questions were answered regarding this diagnosis. We discussed the procedure in detail. This included a discussion on the indications, possible complications, and expected postoperative course. This included a discussing on the weightbearing status after this procedure. All of her questions were answered and a proper written consent was signed andplaced in the chart. No guarantees were given to outcome of this procedure. The patient will followup in the office 1 week after surgery and were encouraged to call the office if they had any questions before the surgery takes place. documented in [facility]* Diagnosis Onset Date Resolution Status Contusion of left ankle, initial encounter acute [facility] Work Phone: Evaluation noteNo assessment information available [facility] Work Phone: Evaluation note* Diagnosis Chronic ph[facility]itis- Primary [facility] Diagnosis Onset Date Resolution Status Acute laryngitis noneactive Acute pharyngitis noneactive [facility] Work Phone: Evaluation note* Diagnosis Bilateral foot pain Pain in limb [facility] Diagnosis Bilateral foot pain- Primary Pain in limb Bunion of great toe Bunion Bilateral foot pain Pain in limb Bilateral foot pain Pain in limb Bilateral foot pain Pain in limb Bunion of great toe Bunion [facility] Diagnosis Onset Date Resolution Status Pharyngitis acute [facility] Work Phone: Reason for referral (narrative)No reason for referral information availableWWhite [facility] Work Phone: Chief Complaint and Reason for Visit Chief Complaint DDD BULGING DISC LUM BAR. RX HERE SCREENING L ANKLE INJURY/ SWELLING NOTED LT EXTERIOR xray Reason for Visit Contusion of left an kle, initial encounter Chief Complaint L ANKLE INJURY/ SWEL LING NOTED LT EXTERIOR xray Reason for Visit Contusion of left an kle, initial encounter Chief Complaint sore throat, hurts t o swallow Reason for Visit Acute laryngitis Acute pharyngitis Chief Complaint BA/FEVER/SORE THROAT PHARYNGITIS Reason for Visit Pharyngitis Chief Complaint Admit Date FASTING January 23, 2025 7:58a m Chief Complaint Admit Date FASTING January 23, 2025 7:58a m neck January 29, 2025 9:34a m Chief Complaint Admit Date FASTING January 23, 2025 7:58a m neck January 29, 2025 9:34a m DENSE BREAST TISSUE, MAMM RECOMMENDATION February 22, 2025 10:07am Chief Complaint Admit Date FASTING January 23, 2025 7:58a m neck January 29, 2025 9:34a m DENSE BREAST TISSUE, MAMM RECOMMENDATION February 22, 2025 10:07am CONCERN FOR UTI May 12, 2025 8:05am Chief Complaint Admit Date DENSE BREAST TISSUE, MAMM RECOMMENDATION February 22, 2025 10:07am CONCERN FOR UTI May 12, 2025 8:05am INT ORDER May 12, 2025 11:00am DRY NEEDLE. NECK/SHOULDER. SELF PAY/SELF REF May 29, 2025 1:22pm Reason for Visit Admit Date Acute cystitis with hematuria May 12, 2025 8:05am Advance Directives No Advanced Directives Records Found Advance Directive Response Recorded Date/ Time Living Will No December 23, 2018 6:15pm Power of Director Of Photography No December 23 6:15pm Advance Directive Response Recorded Date/ Time Living Will No December 23, 2018 5:15pm Power of Director Of Photography No December 23 5:15pm Advance Directive Response Recorded Date/ Time Living Will No October 12 8:25am Power of Director Of Photography No October 12, 2022 8:25am Advance Directive Response Recorded Date/ Time Do you have a Healthcare Power of Director Of Photography? No January 29, 2025 9:56am Reason for Referral Specialty Diagnoses / Procedures Referred By Contac t Referred To Contact Otolaryngology Diagnoses Chronic pharyngitis Jo-Ann Fraga MD [address] [place] [address] Conchita Rowley MD [address] [address] Referral ID Status Reason Start Date Expiration Date V isits Requested Visits Authorized [id number] Pending Review 09/04/2022 09/04/2023 1 1 Specialty Diagnoses / Procedures Referred By Contac t Referred To Contact Diagnoses Bilateral foot pain Procedures XR FOOT RIGHT 3 VIEWS Atway, Said A, DPM [address] [facility] [address] [place] [address] Referral ID Status Reason Start Date Expiration Date V isits Requested Visits Authorized [id number] New Request 11/18/2022 12/13/2023 1 1 Specialty Diagnoses / Procedures Referred By Contac t Referred To Contact Diagnoses Bilateral foot pain Procedures XR FOOT LEFT 3 VIEWS Atway, Said Beatriz, DPM [address] [facility] [address] [place] [address] Referral ID Status Reason Start Date Expiration Date V isits Requested Visits Authorized [id number] New Request 11/18/2022 12/13/2023 1 1 Summary Purpose Family History Family Member Condition Father Arthritis Full Sister Cancer Father Alive Mother Alive Relationship Condition Age at Onset Recorded Date/T radha father Malignant neoplasm Unknown sister Malignant melanoma Unknown Alcoholism Unknown No Family History Records Found Additional Source Comments Goals (unrecognized section and content) Goals may be documented in a n alternate sectionGoals may be documented in an alternate sectionGoals may be documented in an alternate sectionGoals may be documented in an alternate sectionGoals may be documented in an alternate sectionGoals may be documented in an alternate sectionGoals may be documented in an alternate sectionGoals may be documented in an alternate sectionGoals may be documented in an alternate sectionGoals may be documented in an alternate section No Information Available INFORMATION SOURCE (unrecogn ized section and content) DATE CREATED AUTHOR 09/05/2022 [facility] DATE CREATED AUTHOR AUTHOR'S ORGANIZ ATION 12/04/2022 [facility] DATE CREATED AUTHOR AUTHOR'S ORGANIZ ATION 06/07/2025 [facility] Care Teams (unrecognized sec tion and content) Team Status: Active Member Role Status Dates Dr. Shirley Guan DO Family Provider Active Dr. Shirley Guan DO Primary Care Provider Active Team Status: Inactive Member Role Status Dates Dr. Shirley Guan DO Primary Care Provider, Referring Tulio guzman Active Chito Fragoso SEED BUYER, 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 Attending Provider Active Team Status: Inactive Member Role Status Dates Dr. Shirley Guan DO Primary Care Provider Active Dr. 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 Start Date End Date Shirley Guan DO [address] [place] [address] PCP - General Family Medicine 12/10/20 [employer] Stock Grader Relationship Specialty Start Date End Date Shirley Guan DO [address] [place] [address] PCP - General Family Medicine 12/10/20 [employer]er Stock Grader Relationship Specialty Start Date End Date Shirley Guan DO [address] [place] [address] PCP - General Family Medicine 12/10/20 V[employer]er Stock Grader Relationship Specialty Start Date End Date Shirley Guan DO [address] [place] [address] PCP - General Family Medicine 12/10/20 [employer]er Stock Grader Relationship Specialty Start Date End Date Shirley Guan DO [address] [place] [id number] PCP - General Family Medicine 12/10/20 Team Status: Active Member Role Status Dates Dr. Shirley Guan DO Family Provider Active Dr. Jo-Ann Fraga MD Primary Care Provider Active Team Status: Inactive Member Role Status Dates Dr. Jo-Ann Fraga MD Primary Care Provider, Referrin g Provider Active DEX Cedeño Attending Provider Active Team Status: Inactive Member Role Status Dates Dr. Jo-Ann Fraga MD Primary Care Provider Active Dr. Clyde Shell MD Attending Provider, Refe rring Provider Active Team Status: Inactive Member Role Status Dates Dr. Jo-Ann Fraga MD Primary Care Provider Active Start: January 23, 2025 End: January 23, 2025 Dr. Shirley Guan DO Attending Provider Active St art: January 23, 2025 End: January 23, 2025 Dr. Shirley Guan DO Referring Provider Active St art: January 23, 2025 End: January 23, 2025 Team Status: Active Member Role Status Dates Dr. Shirley Guan DO Primary Care Provider Active Team Status: Inactive Member Role Status Dates Dr. Orlando Leiva DO Emergency Provider Active Start: January 29, 2025 End: January 29, 2025 Dr. Shirley Guan DO Primary Care Provider Active Start: January 29, 2025 End: January 29, 2025 Team Status: Active Member Role/Relationship Status Dates Dr. Shirley Guan DO Primary Care Provider Active Team Status: Inactive Member Role/Relationship Status Dates Dr. Jo-Ann Fraga MD Primary Care Provider Active Start: January 23, 2025 End: January 23, 2025 Dr. Shirley Guan DO Attending Provider Active St art: January 23, 2025 End: January 23, 2025 Dr. Shirley Guan DO Referring Provider Active St art: January 23, 2025 End: January 23, 2025 Team Status: Inactive Member Role/Relationship Status Dates Dr. Orlando Leiva DO Attending Provider Active Start: January 29, 2025 End: January 29, 2025 Dr. Orlando Leiva DO Emergency Provider Active Start: January 29, 2025 End: January 29, 2025 Dr. Shirley Guan DO Primary Care Provider Active Start: January 29, 2025 End: January 29, 2025 Team Status: Inactive Member Role/Relationship Status Dates Dr. Jo-Ann Fraga MD Attending Provider Active Start: February 22, 2025 End: February 22, 2025 Dr. Jo-Ann Fraga MD Referring Provider Active Start: February 22, 2025 End: February 22, 2025 Dr. Shirley Guan DO Primary Care Provider Active Start: February 22, 2025 End: February 22, 2025 Team Status: Inactive Member Role/Relationship Status Dates Dr. Shirley Guan DO Primary Care Provider Active Start: May 12, 2025 End: May 12, 2025 Dr. Shirley Guan DO Referring Provider Active St art: May 12, 2025 End: May 12, 2025 DMITRI StanleyC Attending Provider Active Start: May 12, 2025 End: May 12, 2025 Team Status: Active Member Role/Relationship Status Dates Dr. Shirley Guan DO Primary care physician Active Team Status: Inactive Member Role/Relationship Status Dates Dr. Jo-Ann Fraga MD Attending physician Active Start: February 22, 2025 End: February 22, 2025 Dr. Jo-Ann Farga MD Referring Provider Active Start: February 22, 2025 End: February 22, 2025 Dr. Shirley Guan DO Primary care physician Active Start: February 22, 2025 End: February 22, 2025 Team Status: Inactive Member Role/Relationship Status Dates Dr. Shirley Guan DO Primary care physician Active Start: May 12, 2025 End: May 12, 2025 Dr. Shirley Guan DO Referring Provider Active St art: May 12, 2025 End: May 12, 2025 DMITRI StanleyC Attending physician Active Start: May 12, 2025 End: May 12, 2025 Team Status: Inactive Member Role/Relationship Status Dates Dr. Shirley Guan DO Primary care physician Active Start: May 12, 2025 End: May 12, 2025 ALKA Stanley Attending physician Active Start: May 12, 2025 End: May 12, 2025 ALKA Stanley Referring Provider Active Start: May 12, 2025 End: May 12, 2025 Team Status: Active Member Role/Relationship Status Dates Dr. Shirley Guan DO Primary care physician Active Start: May 29, 2025 Self Referred Attending physician Active Start: May 29, 2025 Self Referred Referring Provider Active Start: Kai dukes 2024 Reason for Visit (unrecogniz ed section and content) Specialty Diagnoses / Procedures Referred By Contac t Referred To Contact Diagnoses Bilateral foot pain Procedures XR FOOT RIGHT 3 VIEWS Atway, Inga Henderson DPM [address] [facility] [address] [place] [address] Referral ID Status Reason Start Date Expiration Date V isits Requested Visits Authorized [id number] New Request 11/18/2022 12/13/2023 1 1 Specialty Diagnoses / Procedures Referred By Contac t Referred To Contact Diagnoses Bilateral foot pain Procedures XR FOOT LEFT 3 VIEWS Atway, Inga Henderson DPM [address] [facility] [address] [place] [address] Referral ID Status Reason Start Date Expiration Date V isits Requested Visits Authorized [id number] New Request 11/18/2022 12/13/2023 1 1 Reason Comments [facility] pt would like to discuss sx for L foot. Pt having a difficult time wearing shoes. Follow-up Reason Onset Date Comments Appointment 03/04/2023 Reason Onset Date Comments Surgery 05/25/2023 FOR RECORDS PERTAINING TO PATIENTS WHO ARE [...] BE BASED ON THE PRIMARY CLINICAL RECORDS. [facility] [employer] [facility]. provides no warranty or guarantee of the accuracy or completeness of information in this document.
== END | disposition home or self-care (01) ==
LOC: MRI 15:29
PROVIDERS: PCP Family Medicine; Referring Provider Orthopaedic Surgery Orthopaedic Surgery of the Spine; Visit Provider Orthopaedic Surgery Orthopaedic Surgery of the Spine
DX: M50.30 Other cervical disc degeneration, unspecified cervical region (principal)
CPT/HCPCS: 72141